=== PATIENT | female | born 1955 | race Caucasian/White ===

== ENCOUNTER 2022-12-02 02:59 | Observation (INO) | payer MEDICARE ==
--- NOTE | 2022-12-02 03:15 | ERPHSYRPT ---
- History of Present Illness Time Seen by Provider: 12/02/22 03:15 Source: patient Exam Limitations: no limitations Physician History: This is a 67-year-old white female patient of Dr. Kang Mishra and direct marketing representative Dr. Vann and presents with worsening shortness of breath over 1 week's time. The last couple days she woke up in the salesperson shoes hours not been able to breeze and then she took a nebulizer treatment. It was not helping. She thinks her nebulizer vials are because she has had them for over a couple of years this patient denies chest pain. She does have some wheezing present. She has been diagnosed with COPD and CHF. She was told she has had a myocardial infarction in the past. She is not on oxygen at home. Patient's room air oxygen saturations level on arrival to the emergency room is 94% Timing/Duration: week(s) (1) Activities at Onset: none Severity of Dyspnea-Max: mild (Moderate) Severity of Dyspnea-Current: mild Possible Cause: occasional episodes Associated Symptoms: anxiety, wheezing, No chest pain/discomfort, No calf pain, No dizziness, No heaviness, No heart racing, No painful breathing, No tightness Allergies/Adverse Reactions: ampicillin [Ampicillin] Allergy (Verified 12/02/22 03:23) Penicillins Allergy (Verified 12/02/22 03:23) Home Medications: Albuterol 2.5 mg/3 ml Neb [Proventil 2.5 mg/3 ml Neb] 2.5 mg IH TID 08/12/18 [History] Albuterol Sulfate [Albuterol Sulfate Hfa] 7 gm IH DAILY PRN PRN 08/12/18 [History] Aspirin EC 81 mg [Ecotrin 81 mg] 81 mg PO DAILY 08/12/18 [History] Ibuprofen 200 mg [Motrin 200 mg] 200 mg PO DAILY PRN PRN 08/12/18 [History] Travel Risk - International Travel Have you traveled outside of the country in past 3 weeks: No - Coronavirus Screening Are you exhibiting any of the following symptoms?: No Close contact with a COVID-19 positive Pt in past 14-21 Days: No - Review of Systems Constitutional: No Symptoms Eyes: No Symptoms Ears, Nose, & Throat: No Symptoms Respiratory: Dyspnea, Wheezing Cardiac: No Symptoms Abdominal/Gastrointestinal: No Symptoms Genitourinary Symptoms: No Symptoms Musculoskeletal: No Symptoms Skin: No Symptoms Neurological: No Symptoms Psychological: No Symptoms Endocrine: No Symptoms Hematologic/Lymphatic: No Symptoms Immunological/Allergic: No Symptoms All Other Systems: Reviewed and Negative - Past Medical History Pertinent Past Medical History: Yes Neurological History: No Pertinent History ENT History: No Pertinent History Cardiac History: Myocardial Infarction ([place]) Respiratory History: COPD Endocrine Medical History: No Pertinent History Musculoskeletal History: No Pertinent History GI Medical History: No Pertinent History History: No Pertinent History Psycho-Social History: No Pertinent History Female Reproductive Disorders: No Pertinent History - Past Surgical History Past Surgical History: Yes Neuro Surgical History: No Pertinent History Cardiac: Other Respiratory: No Pertinent History Gastrointestinal: Appendectomy Genitourinary: No Pertinent History Musculoskeletal: No Pertinent History Female Surgical History: Tubal Ligation - Social History Smoking Status: Never smoker Exposure to second hand smoke: No Drug Use: none - Nursing Vital Signs Nursing Vital Signs: Initial Vital Signs Temperature 97.4 F 12/02/22 03:02 Pulse Rate 86 12/02/22 03:02 Respiratory Rate 24 12/02/22 03:02 Blood Pressure 142/79 12/02/22 03:02 O2 Sat by Pulse Oximetry 94 L 12/02/22 03:02 Pain Scale Pain Intensity 0 - Physical Exam General Appearance: no apparent distress, alert, anxiety Eye Exam: PERRL/EOMI, eyes nml inspection Ears, Nose, Throat Exam: hearing grossly normal, normal ENT inspection, normal pharynx Neck Exam: normal inspection, non-tender, supple, full range of motion Respiratory Exam: wheezing (Bilateral mild diffuse expiratory), No chest tenderness, No respiratory distress Cardiovascular/Chest Exam: normal heart sounds, regular rate/rhythm, normal peripheral pulses Abdominal/Gastrointestinal Exam: soft, normal bowel sounds, No tenderness Rectal Exam: not done Extremity Exam: non-tender, normal range of motion, normal inspection Neurologic Exam: alert, oriented x 3, cooperative, structural fitter II-XII nml as tested, normal mood/affect, nml cerebellar function, nml station & gait, sensation nml Skin Exam: normal color, warm, dry Lymphatic Exam: No adenopathy SpO2 Interpretation: normal O2 Delivery: Room Air - Course Nursing assessment & vital signs reviewed: Yes EKG Interpreted by Me: RATE (86), Sinus Rhythm, NORMAL AXIS, NORMAL INTERVALS, NORMAL QRS, NORMAL ST-T, Other (No acute ischemia on today's twelve-lead EKG) Ordered Tests: Active Orders 24 hr Category Date Time Status Hash S[place] STAT Care 12/02/22 03:38 Active EKG-ER Only STAT Care 12/02/22 03:37 Active IV Insertion STAT Care 12/02/22 03:37 Active Pulse Oximetry (ED) STAT Care 12/02/22 03:37 Active CHEST 1 VIEW (PORTABLE) Stat Exams 12/02/22 03:37 Taken CBC W DIFF Stat Lab 12/02/22 03:45 Completed CMP Stat Lab 12/02/22 03:45 Completed NT PRO BNPII Stat Lab 12/02/22 03:45 Completed TROPONIN Q4H Lab 12/02/22 03:45 Completed TROPONIN Q4H Lab 12/02/22 07:45 Ordered TROPONIN Q4H Lab 12/02/22 11:45 Ordered Respiratory Therapy Assessment DAILY RT 12/02/22 03:31 Completed Medication Summary Discontinued Medications Generic Name Dose Route Start Last Admin Trade Name Freq PRN Reason Stop Dose Admin Albuterol/Ipratropium Confirm 12/02/22 03:28 Ipratropium/Albuterol Sulfate 3 Ml Ampul.Neb Administered 12/02/22 03:29 Dose 3 ml IH .STK-MED ONE Albuterol/Ipratropium 3 ml 12/02/22 03:30 12/02/22 03:31 Ipratropium/Albuterol Sulfate 3 Ml Ampul.Neb IH 12/02/22 03:31 3 ml STAT ONE Administration Lab/Rad Data: Laboratory Result Diagrams 12/02/22 03:45 12/02/22 03:45 Laboratory Results 12/02/22 12/02/22 12/02/22 Range/Units 03:45 03:45 03:45 WBC (4.0-10.5) x10^3/uL RBC (4.1-5.4) x10^6/uL Hgb (12.0-16.0) g/dL Hct (35-47) % MCV (78-100) fL MCH (26-32) pg MCHC (32-36) g/dL RDW (11.5-14.0) % Plt Count (150-450) x10^3/uL MPV (7.5-11.0) fL Gran % (36.0-66.0) % Immature Gran % (Auto) (0.00-0.4) % Nucleat RBC Rel Count (0.00-0.1) % Eos # (Auto) (0-0.5) x10^3/uL Immature Gran # (Auto) (0.00-0.03) x10^3u/L Absolute Lymphs (auto) (1.0-4.6) x10^3/uL Absolute Monos (auto) (0.0-1.3) x10^3/uL Absolute Nucleated RBC (0.00-0.01) x10^3u/L Lymphocytes % (24.0-44.0) % Monocytes % (0.0-12.0) % Eosinophils % (0.00-5.0) % Basophils % (0.0-0.4) % Absolute Granulocytes (1.4-6.9) x10^3/uL Basophils # (0-0.4) x10^3/uL Sodium 141 (137-145) mmol/L Potassium 3.7 (3.5-5.1) mmol/L Chloride 103 (98-107) mmol/L Carbon Dioxide 27 (22-30) mmol/L Anion Gap 14.1 (5-15) MEQ/L BUN 19 H (7-17) mg/dL Creatinine 0.76 (0.52-1.04) mg/dL Estimated GFR > 60.0 ML/MIN Glucose 128 H (74-106) mg/dL Calcium 8.8 (8.4-10.2) mg/dL Total Bilirubin 0.50 (0.2-1.3) mg/dL AST 32 (14-36) U/L ALT 27 (0-35) U/L Alkaline Phosphatase 108 (38-126) U/L Troponin I < 0.012 (0.000-0.034) ng/mL NT-Pro-B Natriuret Pep 298 (<300) pg/mL Serum Total Protein 7.8 (6.3-8.2) g/dL Albumin 4.4 (3.5-5.0) g/dL 12/02/22 Range/Units 03:45 WBC 9.3 (4.0-10.5) x10^3/uL RBC 4.49 (4.1-5.4) x10^6/uL Hgb 13.3 (12.0-16.0) g/dL Hct 41.9 (35-47) % MCV 93.3 (78-100) fL MCH 29.6 (26-32) pg MCHC 31.7 L (32-36) g/dL RDW 15.5 H (11.5-14.0) % Plt Count 232 (150-450) x10^3/uL MPV 11.1 H (7.5-11.0) fL Gran % 58.1 (36.0-66.0) % Immature Gran % (Auto) 0.2 (0.00-0.4) % Nucleat RBC Rel Count 0.0 (0.00-0.1) % Eos # (Auto) 0.52 H (0-0.5) x10^3/uL Immature Gran # (Auto) 0.02 (0.00-0.03) x10^3u/L Absolute Lymphs (auto) 2.61 (1.0-4.6) x10^3/uL Absolute Monos (auto) 0.71 (0.0-1.3) x10^3/uL Absolute Nucleated RBC 0.00 (0.00-0.01) x10^3u/L Lymphocytes % 28.1 (24.0-44.0) % Monocytes % 7.6 (0.0-12.0) % Eosinophils % 5.6 H (0.00-5.0) % Basophils % 0.4 (0.0-0.4) % Absolute Granulocytes 5.39 (1.4-6.9) x10^3/uL Basophils # 0.04 (0-0.4) x10^3/uL Sodium (137-145) mmol/L Potassium (3.5-5.1) mmol/L Chloride (98-107) mmol/L Carbon Dioxide (22-30) mmol/L Anion Gap (5-15) MEQ/L BUN (7-17) mg/dL Creatinine (0.52-1.04) mg/dL Estimated GFR ML/MIN Glucose (74-106) mg/dL Calcium (8.4-10.2) mg/dL Total Bilirubin (0.2-1.3) mg/dL AST (14-36) U/L ALT (0-35) U/L Alkaline Phosphatase (38-126) U/L Troponin I (0.000-0.034) ng/mL NT-Pro-B Natriuret Pep (<300) pg/mL Serum Total Protein (6.3-8.2) g/dL Albumin (3.5-5.0) g/dL - Progress Progress: improved, re-examined Air Movement: fair Progress Note: 12/02/22 04:12 Chest x-ray was interpreted by me. There is bibasilar scarring versus atelectasis present. No obvious infiltrate on my interpretation. 12/02/22 04:22 This patient's medical issue is 1 of moderate complexity. The level of complexity in the work-up performed is based on the review of the patient's past medical history, review of the patient's medication list, review of the patient's drug allergy list, history of present illness and findings on physical examination. Work-up performed includes a chest x-ray, twelve-lead EKG, BNP, troponin level, CBC, CMP. I reviewed the above results. I interpreted them. Patient appears to have COPD exacerbation we will provide her with RT evaluation and treatment. She received a breathing treatment via nebulizer by RT, she received steroid of Solu-Medrol infused intravenously. She will be reassessed by RT before discharge to home. I will send a prescription for prednisone and albuterol solution for her nebulizer to her pharmacy remotely. Blood Culture(s) Obtained: Yes Counseled pt/family regarding: lab results, diagnosis, need for follow-up, rad results Medical Desision Making - Diagnostic Testing Diagnostic test were ordered, analyzed, and reviewed by me: Yes Radiological Interpretation: Interpreted by me - Risk of complications The pt has a mod risk of morbidity or mortality based on: Need for prescription drug management - Departure Departure Disposition: Home Clinical Impression: COPD exacerbation Condition: Stable Critical Care Time: No Referrals: ANA LILIA JOSEPH [Primary Care Provider] - Follow up/PCP as directed Instructions: Chronic Obstructive Pulmonary Disease Additional Instructions: Take your medication as prescribed. Follow-up with your prescribing physician as well as your direct marketing representative later today to make arranges for follow-up appointment within 3 to 5 days for reevaluation management. Make sure you use your albuterol nebulizer solution/machine every 4 hours scheduled while awake for the next 48 to 72 hours. Prescriptions: Prednisone 10 mg [Deltasone 10 mg] 10 mg PO TID #12 tablet Albuterol 2.5 mg/3 ml Neb [Proventil 2.5 mg/3 ml Neb] 2.5 mg IH Q6H #25 units
[2022-12-02] MEDS ORDERED: DUONEB 0.5-3 MG/3 ml Neb IH ONE ×2 (03:28→03:30)
[2022-12-02 03:57] LABS: ALBUMIN 4.4 g/dL (3.5-5.0); ALKALINE PHOSPHATASE 108 U/L (38-126); ANION GAP 14.1 MEQ/L (5-15); BLOOD UREA NITROGEN 19 mg/dL (7-17); CHLORIDE 103 mmol/L (98-107); Calcium 8.8 mg/dL (8.4-10.2); Carbon Dioxide 27 mmol/L (22-30); Creatinine 1 0.76 mg/dL (0.52-1.04); EST GLOMERULAR FILTRATION RATE > 60.0 ML/MIN; Glucose 128 mg/dL (74-106); Potassium 3.7 mmol/L (3.5-5.1); SGOT/AST 32 U/L (14-36); SGPT/ALT 27 U/L (0-35); SODIUM 141 mmol/L (137-145); Total Protein 7.8 g/dL (6.3-8.2)
[2022-12-02 04:09] LABS: Absolute Neutrophil Ct (ANC) 5.39 x10^3/uL (1.4-6.9); BASOPHIL % 0.4 % (0.0-0.4); Basophil (Absolute #) 0.04 x10^3/uL (0-0.4); Eosinophil % 5.6 % (0.00-5.0); Eosinophil (Absolute #) 0.52 x10^3/uL (0-0.5); Hematocrit 41.9 % (35-47); Hemoglobin 13.3 g/dL (12.0-16.0); IMMATURE GRAN # 0.02 x10^3u/L (0.00-0.03); IMMATURE GRAN % 0.2 % (0.00-0.4); Lymphocyte (Absolute #) 2.61 x10^3/uL (1.0-4.6); Lymphocytes % 28.1 % (24.0-44.0); Mean Cell Volume 93.3 fL (78-100); Mean Corpuscular Hemoglobin 29.6 pg (26-32); Mean Corpuscular Hgb Concent. 31.7 g/dL (32-36); Mean Platelet Volume 11.1 fL (7.5-11.0); Monocyte (Absolute #) 0.71 x10^3/uL (0.0-1.3); Monocytes % 7.6 % (0.0-12.0); Neutrophil % 58.1 % (36.0-66.0); Platelet Count 232 x10^3/uL (150-450); Red Blood Count 4.49 x10^6/uL (4.1-5.4); Red Cell Distribution Width 15.5 % (11.5-14.0); White Blood Count 9.3 x10^3/uL (4.0-10.5)
[2022-12-02] MEDS ORDERED: solu-MEDROL 120 MG, Sterile H2O 10 ml 1 ML IV STA ×2 (04:27)
[2022-12-02] MEDS ORDERED: solu-MEDROL ONE ×2 (04:39→13:06)
[2022-12-02] MEDS ORDERED: Sterile H2O 10 ml IJ ONE (04:39)
[2022-12-02] MEDS ORDERED: Sodium Chloride 0.9% 1000 ML 1,000 ML IV SCH (08:00)
[2022-12-02] MEDS: LEVOFLOXACIN 750MG/150ML D5W 750 MG/150 ML BAG IV SCH (08:07)
[2022-12-02 08:34] LABS: INFLUENZA A NEGATIVE (NEGATIVE); INFLUENZA B NEGATIVE (NEGATIVE); RESPIRATORY SYNCTIAL VIRUS NEGATIVE (NEGATIVE); SARS-CoV-2 Xpert Express NEGATIVE (NEGATIVE)
--- NOTE | 2022-12-02 08:38 | XRAY ---
Indication: Short of breath. Comparison: January 23, 2017 Portable chest remains inflated and clear. Heart not enlarged again with cardiac valve replacement surgery. Bony thorax intact again with osteopenia and mild degenerative changes. Impression: Continued nonacute chest with chronic features.
[2022-12-02] MEDS: DUONEB 0.5-3 MG/3 ml Neb IH SCH ×4 (11:27→23:51)
[2022-12-02] MEDS ORDERED: solu-MEDROL 60 MG, Sterile H2O 10 ml 2 ML IV SCH ×2 (12:00)
--- NOTE | 2022-12-02 13:10 | PCM.HP ---
History of Present Illness - Chief Complaint Chief Complaint: COPD History of Present Illness: is a 67 year old female patient of Dr Kapadia who presented to the ER with a week and a half history of cough, productive and wheezing/shortness of breath. no known fever, states she has had insurance problems and been without some of her meds for the last month and a half, she is unable to elaborate on which meds, she has borrowed an inhaler from a neighbor. - Review of Systems Constitutional: No Symptoms Respiratory: Cough, Short Of Breath, Wheezing Cardiac: No Chest Pain, No Edema, No Syncope Abdominal/Gastrointestinal: No Abdominal Pain, No Nausea, No Vomiting, No Diarrhea Genitourinary Symptoms: No Dysuria All Other Systems: Reviewed and Negative Medications & Allergies Home Medications: Home Medication List Albuterol 2.5 mg/3 ml Neb [Proventil 2.5 mg/3 ml Neb] 2.5 mg IH Q6H 08/12/18 [History Confirmed 12/02/22] Ibuprofen 200 mg [Motrin 200 mg] 800 mg PO BIDPRN PRN 08/12/18 [History Confirmed 12/02/22] Atorvastatin Calcium 40 mg PO HS 12/02/22 [History Confirmed 12/02/22] Carvedilol [Coreg ] 6.25 mg PO BID 12/02/22 [History Confirmed 12/02/22] Famotidine [Pepcid] 20 mg PO DAILY 12/02/22 [History Confirmed 12/02/22] Furosemide [Lasix] 20 mg PO DAILY 12/02/22 [History Confirmed 12/02/22] Losartan Potassium 50 mg PO DAILY 12/02/22 [History Confirmed 12/02/22] Montelukast Sodium 10 mg [Singulair 10 MG] 10 mg PO DAILY 12/02/22 [History Confirmed 12/02/22] Nitroglycerin 0.4 mg SL Q5MIN PRN MR X 3 PRN 12/02/22 [History Confirmed 12/02/22] PARoxetine HCL [Paroxetine HCl] 40 mg PO DAILY 12/02/22 [History Confirmed 12/02/22] Prednisone 10 mg [Deltasone 10 mg] 10 mg PO DAILY 12/02/22 [History Confirmed 12/02/22] Allergies/Adverse Reactions: Allergies Allergy/AdvReac Type Severity Reaction Status Date / Time ampicillin [Ampicillin] Allergy Verified 12/02/22 03:23 Penicillins Allergy Verified 12/02/22 03:23 - Past Medical History Past Medical History: Yes Neurological History: No Pertinent History ENT History: No Pertinent History Cardiac History: Myocardial Infarction ([place]) Respiratory History: Asthma, COPD Endocrine Medical History: No Pertinent History Musculoskelatal History: No Pertinent History GI Medical History: No Pertinent History History: No Pertinent History Pyscho-Social History: No Pertinent History, Depression Reproductive Disorders: No Pertinent History - Female History Hx Last Menstrual Period: post menopausal Are you now?: No - Past Surgical History Past Surgical History: Yes Neuro Surgical History: No Pertinent History Cardiac History: Other Respiratory Surgery: No Pertinent History GI Surgical History: Appendectomy Genitourinary Surgical Hx: No Pertinent History Musculskeletal Surgical Hx: No Pertinent History Female Surgical History: Tubal Ligation Other Surgical History: open heart- remove growth from heart- 2014 - Social History Smoking Status: Current every day smoker How long have you smoked: 40 y Exposure to second hand smoke: No Alcohol: Occasionally Drug Use: none, marijuana - Physical Exam Vital Signs: Vital Signs - 24 hr Temp Pulse Resp BP Pulse Ox 12/02/22 12:00 97.7 F 93 H 17 135/70 90 L 12/02/22 11:29 90 20 95 12/02/22 10:38 97.1 F 96 H 24 148/89 94 L 12/02/22 09:58 97.1 F 96 H 24 148/89 94 L 12/02/22 07:54 97.4 F 102 H 22 115/88 96 12/02/22 06:00 80 20 133/78 95 12/02/22 04:34 96 12/02/22 04:01 80 20 135/82 96 12/02/22 03:31 84 24 98 12/02/22 03:02 97.4 F 86 24 142/79 94 L General Appearance: no apparent distress Neurologic Exam: alert, oriented x 3 Respiratory Exam: diminished breath sounds, wheezing Cardiovascular Exam: regular rate/rhythm, normal heart sounds, normal peripheral pulses Gastrointestinal/Abdomen Exam: soft, normal bowel sounds, No tenderness, No mass Extremity Exam: normal inspection, normal range of motion, pelvis stable Skin Exam: normal color, warm, dry, No rash Results - Labs Lab/Micro Results: Lab Results-Last 24 Hours 12/02/22 12/02/22 12/02/22 Range/Units 03:45 03:45 03:45 WBC 9.3 (4.0-10.5) x10^3/uL RBC 4.49 (4.1-5.4) x10^6/uL Hgb 13.3 (12.0-16.0) g/dL Hct 41.9 (35-47) % MCV 93.3 (78-100) fL MCH 29.6 (26-32) pg MCHC 31.7 L (32-36) g/dL RDW 15.5 H (11.5-14.0) % Plt Count 232 (150-450) x10^3/uL MPV 11.1 H (7.5-11.0) fL Gran % 58.1 (36.0-66.0) % Immature Gran % (Auto) 0.2 (0.00-0.4) % Nucleat RBC Rel Count 0.0 (0.00-0.1) % Eos # (Auto) 0.52 H (0-0.5) x10^3/uL Immature Gran # (Auto) 0.02 (0.00-0.03) x10^3u/L Absolute Lymphs (auto) 2.61 (1.0-4.6) x10^3/uL Absolute Monos (auto) 0.71 (0.0-1.3) x10^3/uL Absolute Nucleated RBC 0.00 (0.00-0.01) x10^3u/L Lymphocytes % 28.1 (24.0-44.0) % Monocytes % 7.6 (0.0-12.0) % Eosinophils % 5.6 H (0.00-5.0) % Basophils % 0.4 (0.0-0.4) % Absolute Granulocytes 5.39 (1.4-6.9) x10^3/uL Basophils # 0.04 (0-0.4) x10^3/uL D-Dimer (0.0-0.50) mg/L Sodium 141 (137-145) mmol/L Potassium 3.7 (3.5-5.1) mmol/L Chloride 103 (98-107) mmol/L Carbon Dioxide 27 (22-30) mmol/L Anion Gap 14.1 (5-15) MEQ/L BUN 19 H (7-17) mg/dL Creatinine 0.76 (0.52-1.04) mg/dL Estimated GFR > 60.0 ML/MIN Glucose 128 H (74-106) mg/dL Calcium 8.8 (8.4-10.2) mg/dL Total Bilirubin 0.50 (0.2-1.3) mg/dL AST 32 (14-36) U/L ALT 27 (0-35) U/L Alkaline Phosphatase 108 (38-126) U/L Troponin I < 0.012 (0.000-0.034) ng/mL NT-Pro-B Natriuret Pep (<300) pg/mL Serum Total Protein 7.8 (6.3-8.2) g/dL Albumin 4.4 (3.5-5.0) g/dL Influenza Type A Ag (NEGATIVE) Influenza Type B Ag (NEGATIVE) RSV (PCR) (NEGATIVE) SARS-CoV-2 (PCR) (NEGATIVE) 12/02/22 12/02/22 12/02/22 Range/Units 03:45 06:00 07:37 WBC (4.0-10.5) x10^3/uL RBC (4.1-5.4) x10^6/uL Hgb (12.0-16.0) g/dL Hct (35-47) % MCV (78-100) fL MCH (26-32) pg MCHC (32-36) g/dL RDW (11.5-14.0) % Plt Count (150-450) x10^3/uL MPV (7.5-11.0) fL Gran % (36.0-66.0) % Immature Gran % (Auto) (0.00-0.4) % Nucleat RBC Rel Count (0.00-0.1) % Eos # (Auto) (0-0.5) x10^3/uL Immature Gran # (Auto) (0.00-0.03) x10^3u/L Absolute Lymphs (auto) (1.0-4.6) x10^3/uL Absolute Monos (auto) (0.0-1.3) x10^3/uL Absolute Nucleated RBC (0.00-0.01) x10^3u/L Lymphocytes % (24.0-44.0) % Monocytes % (0.0-12.0) % Eosinophils % (0.00-5.0) % Basophils % (0.0-0.4) % Absolute Granulocytes (1.4-6.9) x10^3/uL Basophils # (0-0.4) x10^3/uL D-Dimer 0.47 (0.0-0.50) mg/L Sodium (137-145) mmol/L Potassium (3.5-5.1) mmol/L Chloride (98-107) mmol/L Carbon Dioxide (22-30) mmol/L Anion Gap (5-15) MEQ/L BUN (7-17) mg/dL Creatinine (0.52-1.04) mg/dL Estimated GFR ML/MIN Glucose (74-106) mg/dL Calcium (8.4-10.2) mg/dL Total Bilirubin (0.2-1.3) mg/dL AST (14-36) U/L ALT (0-35) U/L Alkaline Phosphatase (38-126) U/L Troponin I < 0.012 (0.000-0.034) ng/mL NT-Pro-B Natriuret Pep 298 (<300) pg/mL Serum Total Protein (6.3-8.2) g/dL Albumin (3.5-5.0) g/dL Influenza Type A Ag (NEGATIVE) Influenza Type B Ag (NEGATIVE) RSV (PCR) (NEGATIVE) SARS-CoV-2 (PCR) (NEGATIVE) 12/02/22 12/02/22 Range/Units 07:57 11:46 WBC (4.0-10.5) x10^3/uL RBC (4.1-5.4) x10^6/uL Hgb (12.0-16.0) g/dL Hct (35-47) % MCV (78-100) fL MCH (26-32) pg MCHC (32-36) g/dL RDW (11.5-14.0) % Plt Count (150-450) x10^3/uL MPV (7.5-11.0) fL Gran % (36.0-66.0) % Immature Gran % (Auto) (0.00-0.4) % Nucleat RBC Rel Count (0.00-0.1) % Eos # (Auto) (0-0.5) x10^3/uL Immature Gran # (Auto) (0.00-0.03) x10^3u/L Absolute Lymphs (auto) (1.0-4.6) x10^3/uL Absolute Monos (auto) (0.0-1.3) x10^3/uL Absolute Nucleated RBC (0.00-0.01) x10^3u/L Lymphocytes % (24.0-44.0) % Monocytes % (0.0-12.0) % Eosinophils % (0.00-5.0) % Basophils % (0.0-0.4) % Absolute Granulocytes (1.4-6.9) x10^3/uL Basophils # (0-0.4) x10^3/uL D-Dimer (0.0-0.50) mg/L Sodium (137-145) mmol/L Potassium (3.5-5.1) mmol/L Chloride (98-107) mmol/L Carbon Dioxide (22-30) mmol/L Anion Gap (5-15) MEQ/L BUN (7-17) mg/dL Creatinine (0.52-1.04) mg/dL Estimated GFR ML/MIN Glucose (74-106) mg/dL Calcium (8.4-10.2) mg/dL Total Bilirubin (0.2-1.3) mg/dL AST (14-36) U/L ALT (0-35) U/L Alkaline Phosphatase (38-126) U/L Troponin I < 0.012 (0.000-0.034) ng/mL NT-Pro-B Natriuret Pep (<300) pg/mL Serum Total Protein (6.3-8.2) g/dL Albumin (3.5-5.0) g/dL Influenza Type A Ag NEGATIVE (NEGATIVE) Influenza Type B Ag NEGATIVE (NEGATIVE) RSV (PCR) NEGATIVE (NEGATIVE) SARS-CoV-2 (PCR) NEGATIVE (NEGATIVE) - Radiology Impressions Radiology Exams & Impressions: Radiology Procedures Category Date Time Status CHEST 1 VIEW (PORTABLE) Stat Exams 12/02/22 03:37 Completed - Other Procedures and Tests Respiratory Therapy 12/02/22 07:57 Oxygen Nasal Cannula 2 lpm 12/02/22 11:29 Respiratory Therapy Assessment DAILY Assessment/Plan (1) COPD exacerbation Current Visit: Yes Status: Acute Assessment & Plan: continue IV solu medrol, nebs and steroids. encouraged smoking cessation Code(s): J44.1 - CHRONIC OBSTRUCTIVE PULMONARY DISEASE W (ACUTE) EXACERBATION (2) Coronary artery disease Current Visit: Yes Status: Acute Assessment & Plan: resume home meds including statin and beta luke, follows with Dr Vann Code(s): I25.10 - ATHSCL HEART DISEASE OF [place] CORONARY ARTERY W/O ANG PCTRS
[2022-12-02] MEDS: solu-MEDROL 60 MG, Sterile H2O 10 ml 2 ML IV SCH ×6 (13:15→23:42)
[2022-12-02] MEDS: Cyclobenzaprine 10 MG PO PRN ×2 (16:55→21:09)
[2022-12-02] MEDS: Coreg PO SCH (21:08)
[2022-12-02] MEDS ORDERED: ZOCOR 20MG PO SCH (22:00)
[2022-12-02] MEDS ORDERED: LIPITOR 40MG PO SCH (22:00)
[2022-12-03] MEDS: DUONEB 0.5-3 MG/3 ml Neb IH SCH ×4 (03:00→14:21)
[2022-12-03] MEDS ORDERED: solu-MEDROL ONE ×2 (04:39→04:40)
[2022-12-03] MEDS ORDERED: Sterile H2O 10 ml IJ ONE (04:50)
[2022-12-03 05:36] LABS: ANION GAP 12.7 MEQ/L (5-15); BLOOD UREA NITROGEN 20 mg/dL (7-17); CHLORIDE 108 mmol/L (98-107); Calcium 8.8 mg/dL (8.4-10.2); Carbon Dioxide 23 mmol/L (22-30); EST GLOMERULAR FILTRATION RATE > 60.0 ML/MIN; Glucose 160 mg/dL (74-106); MAGNESIUM 2.1 mg/dL (1.6-2.3); Potassium 3.8 mmol/L (3.5-5.1); SODIUM 140 mmol/L (137-145)
[2022-12-03] MEDS: solu-MEDROL 60 MG, Sterile H2O 10 ml 2 ML IV SCH ×2 (05:45)
[2022-12-03 07:32] LABS: Hematocrit 36.9 % (35-47); Hemoglobin 11.6 g/dL (12.0-16.0); Mean Cell Volume 94.9 fL (78-100); Mean Corpuscular Hemoglobin 29.8 pg (26-32); Mean Corpuscular Hgb Concent. 31.4 g/dL (32-36); Mean Platelet Volume 11.3 fL (7.5-11.0); Platelet Count 226 x10^3/uL (150-450); Red Blood Count 3.89 x10^6/uL (4.1-5.4); Red Cell Distribution Width 15.1 % (11.5-14.0); White Blood Count 10.6 x10^3/uL (4.0-10.5)
[2022-12-03 09:47] VITALS: O2SAT 95
[2022-12-03] MEDS: LEVOFLOXACIN 750MG/150ML D5W 750 MG/150 ML BAG IV SCH (09:54)
[2022-12-03] MEDS: Coreg PO SCH (09:55)
[2022-12-03] MEDS ORDERED: LASIX 20 MG PO SCH (10:00)
[2022-12-03] MEDS ORDERED: Cozaar 50 MG PO SCH (10:00)
[2022-12-03] MEDS ORDERED: Mucinex 600MG ER Tabs PO ONE (10:00)
[2022-12-03] MEDS ORDERED: Klor Con PO SCH ×2 (10:00)
[2022-12-03] MEDS ORDERED: DELTASONE 20 MG PO ONE (10:00)
[2022-12-03] MEDS ORDERED: PAROXETINE HCL 40 MG PO SCH (10:00)
[2022-12-03] MEDS ORDERED: Singulair 10 MG PO SCH (10:00)
[2022-12-03] MEDS ORDERED: Paxil 20 MG PO SCH (10:00)
[2022-12-03] MEDS ORDERED: Pepcid 20 MG PO SCH (10:00)
[2022-12-03 15:06] VITALS: BP 138/72; PULSE 104
== END 2022-12-03 15:15 | disposition home or self-care (01) ==
LOC: ED 02:59 → MED SURG 09:41
PROVIDERS: ADMIT Family Medicine; ATTEND Family Medicine
DX: J44.1 Chronic obstructive pulmonary disease with (acute) exacerbation (principal); I25.10 Atherosclerotic heart disease of native coronary artery without angina pectoris; Z79.899 Other long term (current) drug therapy; Z20.828 Contact with and (suspected) exposure to other viral communicable diseases; Z72.0 Tobacco use
CPT/HCPCS: 0241U; 36000; 36415; 71045; 80048; 80053; 82947; 83735; 83880; 84484; 85025; 85027; 85379; 93005; 93041; 94640; 94760; 96374; 99285; 96365; G0378; J1956; J2920; A9270-GY

== ENCOUNTER 2023-09-01 11:06 | Emergency (ER) | payer MEDICARE ==
--- NOTE | 2023-09-01 11:09 | ERPHSYRPT ---
- History of Present Illness Time Seen by Provider: 09/01/23 11:08 Source: patient, family Exam Limitations: no limitations Physician History: This is a morbidly obese 68-year-old white female patient of Dr. Franklin who has a history of COPD, hypertension, hyperlipidemia, CHF and depression and in the last 2 to 3 days she has been having worsening shortness of breath symptoms. Patient was brought into the emergency department by the paramedics. They did place her on oxygen, 2 L via nasal cannula and patient arrives to the emergency department with the [address] and a oxygen saturation level of 94 to 95%. Patient has noticed some wheezing as well. She denies chest pain. Patient did receive a DuoNeb treatment and 125 mg of Solu-Medrol. Patient has a history of frequent COPD exacerbation episodes. Timing/Duration: today, worse Severity of Dyspnea-Max: moderate Severity of Dyspnea-Current: mild (To moderate) Possible Cause: frequent episodes Modifying Factors: Improves With: activity, albuterol nebulizer, rest (Proves improved) Associated Symptoms: cough, wheezing, No chest pain/discomfort Allergies/Adverse Reactions: ampicillin [Ampicillin] Allergy (Verified 09/01/23 11:18) Penicillins Allergy (Verified 09/01/23 11:18) Home Medications: Ibuprofen 200 mg [Motrin 200 mg] 800 mg PO BIDPRN PRN 08/12/18 [History] Atorvastatin Calcium 40 mg PO HS 12/02/22 [History] Carvedilol [Coreg ] 6.25 mg PO BID 12/02/22 [History] Famotidine [Pepcid] 20 mg PO DAILY 12/02/22 [History] Furosemide [Lasix] 20 mg PO DAILY 12/02/22 [History] Losartan Potassium 50 mg PO DAILY 12/02/22 [History] Montelukast Sodium 10 mg [Singulair 10 MG] 10 mg PO DAILY 12/02/22 [History] Nitroglycerin 0.4 mg SL Q5MIN PRN MR X 3 PRN 12/02/22 [History] PARoxetine HCL [Paroxetine HCl] 40 mg PO DAILY 12/02/22 [History] Hx Tetanus, Diphtheria Vaccination/Date Given: Yes Hx Influenza Vaccination/Date Given: No Hx Pneumococcal Vaccination/Date Given: No Travel Risk - International Travel Have you traveled outside of the country in past 3 weeks: No - Coronavirus Screening Are you exhibiting any of the following symptoms?: Yes Symptoms: Shortness of Breath Close contact with a COVID-19 positive Pt in past 14-21 Days: No - Vaccine Status Have you recieved a Covid-19 vaccination: Yes Program Dir: Moderna - Vaccination Dates Date of 2cond Vaccination (if applicable): 2020 - Review of Systems Constitutional: No Symptoms Eyes: No Symptoms Ears, Nose, & Throat: No Symptoms, Painful Swallowing Respiratory: Cough, Wheezing Cardiac: No Symptoms Abdominal/Gastrointestinal: No Symptoms Genitourinary Symptoms: No Symptoms Musculoskeletal: No Symptoms Skin: No Symptoms Neurological: No Symptoms Psychological: No Symptoms Endocrine: No Symptoms Hematologic/Lymphatic: No Symptoms Immunological/Allergic: No Symptoms All Other Systems: Reviewed and Negative - Past Medical History Pertinent Past Medical History: Yes Neurological History: No Pertinent History ENT History: No Pertinent History Cardiac History: Myocardial Infarction (PR) Respiratory History: Asthma, COPD Endocrine Medical History: No Pertinent History Musculoskeletal History: No Pertinent History GI Medical History: No Pertinent History History: No Pertinent History Psycho-Social History: No Pertinent History, Depression Female Reproductive Disorders: No Pertinent History - Past Surgical History Past Surgical History: Yes Neuro Surgical History: No Pertinent History Cardiac: Other Respiratory: No Pertinent History Gastrointestinal: Appendectomy Genitourinary: No Pertinent History Musculoskeletal: No Pertinent History Female Surgical History: Tubal Ligation Other Surgical History: open heart- remove growth from heart- 2014 - Social History Smoking Status: Current every day smoker How long have you smoked: 40 y Exposure to second hand smoke: No Drug Use: none, marijuana Patient Lives Alone: Yes - Nursing Vital Signs Nursing Vital Signs: Initial Vital Signs Temperature 97.9 F 09/01/23 11:19 Pulse Rate 108 H 09/01/23 11:19 Respiratory Rate 20 09/01/23 11:19 Blood Pressure 124/80 09/01/23 11:19 O2 Sat by Pulse Oximetry 93 L 09/01/23 11:19 Pain Scale Pain Intensity 0 - Physical Exam General Appearance: no apparent distress, alert, anxiety, obese Eye Exam: PERRL/EOMI, eyes nml inspection Ears, Nose, Throat Exam: hearing grossly normal, normal ENT inspection, normal pharynx Neck Exam: normal inspection, non-tender, supple, full range of motion Respiratory Exam: airway intact, wheezing, No chest tenderness, No respiratory distress Cardiovascular/Chest Exam: tachycardia Abdominal/Gastrointestinal Exam: soft, normal bowel sounds, No tenderness Rectal Exam: not done Extremity Exam: non-tender, normal range of motion, normal inspection, normal capillary refill, no calf tenderness, no pedal edema, pelvis stable, No calf tenderness Neurologic Exam: alert, oriented x 3, cooperative, pattern lease inspector II-XII nml as tested, normal mood/affect, sensation nml Skin Exam: normal color, warm, dry Lymphatic Exam: No adenopathy SpO2 Interpretation: O2 applied O2 Delivery: Nasal Cannula - Course Nursing assessment & vital signs reviewed: Yes EKG Interpreted by Me: RATE (102), Sinus Tach, NORMAL AXIS, NORMAL INTERVALS, NORMAL QRS, NORMAL ST-T, Other (No acute ischemic changes on today's twelve-lead EKG.) Ordered Tests: Active Orders 24 hr Category Date Time Status Polymer Chemist STAT Care 09/01/23 11:36 Active EKG-ER Only STAT Care 09/01/23 11:36 Active IV Insertion STAT Care 09/01/23 11:36 Active Pulse Oximetry (ED) STAT Care 09/01/23 11:36 Active CHEST 1 VIEW (PORTABLE) Stat Exams 09/01/23 11:36 Completed CHEST WITH CONTRAST [CT] Stat Exams 09/01/23 12:52 Completed BLOOD CULTURE Stat Lab 09/01/23 12:10 Received CBC W DIFF Stat Lab 09/01/23 12:00 Completed CMP Stat Lab 09/01/23 12:00 Completed D-DIMER QUANTITATIVE Stat Lab 09/01/23 12:00 Completed Lactic Acid Stat Lab 09/01/23 11:36 Completed NT PRO BNPII Stat Lab 09/01/23 12:00 Completed TROPONIN Q4H Lab 09/01/23 12:00 Completed TROPONIN Q4H Lab 09/01/23 15:45 Ordered TROPONIN Q4H Lab 09/01/23 19:45 Ordered Medication Summary Generic Name Dose Route Start Last Admin Trade Name Freq PRN Reason Stop Dose Admin Sodium Chloride 500 mls @ 50 mls/hr 09/01/23 13:00 09/01/23 12:57 Sodium Chloride 0.9% 500 Ml IV 10/01/23 12:59 50 mls/hr .Q10H LORELEI Administration Discontinued Medications Generic Name Dose Route Start Last Admin Trade Name Freq PRN Reason Stop Dose Admin Diazepam Confirm 09/01/23 13:25 Diazepam 10 Mg/2 Ml Disp.Syringe Administered 09/01/23 13:26 Dose 10 mg .ROUTE .STK-MED ONE Diazepam 5 mg 09/01/23 13:35 09/01/23 13:40 Diazepam 10 Mg/2 Ml Disp.Syringe IV 09/01/23 13:36 5 mg STAT ONE Administration Lab/Rad Data: Laboratory Result Diagrams 09/01/23 12:00 09/01/23 12:00 Laboratory Results 09/01/23 09/01/23 09/01/23 Range/Units Unknown 12:00 12:00 WBC (4.0-10.5) x10^3/uL RBC (4.1-5.4) x10^6/uL Hgb (12.0-16.0) g/dL Hct (35-47) % MCV (78-100) fL MCH (26-32) pg MCHC (32-36) g/dL RDW (11.5-14.0) % Plt Count (150-450) x10^3/uL MPV (7.5-11.0) fL Gran % (36.0-66.0) % Immature Gran % (Auto) (0.00-0.4) % Nucleat RBC Rel Count (0.00-0.1) % Eos # (Auto) (0-0.5) x10^3/uL Immature Gran # (Auto) (0.00-0.03) x10^3u/L Absolute Lymphs (auto) (1.0-4.6) x10^3/uL Absolute Monos (auto) (0.0-1.3) x10^3/uL Absolute Nucleated RBC (0.00-0.01) x10^3u/L Lymphocytes % (24.0-44.0) % Monocytes % (0.0-12.0) % Eosinophils % (0.00-5.0) % Basophils % (0.0-0.4) % Absolute Granulocytes (1.4-6.9) x10^3/uL Basophils # (0-0.4) x10^3/uL D-Dimer 1.07 H* (0.0-0.50) mg/L Sodium (137-145) mmol/L Potassium (3.5-5.1) mmol/L Chloride (98-107) mmol/L Carbon Dioxide (22-30) mmol/L Anion Gap (5-15) MEQ/L BUN (7-17) mg/dL Creatinine (0.52-1.04) mg/dL Estimated GFR ML/MIN Glucose (74-106) mg/dL Lactic Acid (0.4-2.0) Calcium (8.4-10.2) mg/dL Total Bilirubin (0.2-1.3) mg/dL AST (14-36) U/L ALT (0-35) U/L Alkaline Phosphatase (38-126) U/L Troponin I < 0.012 (0.000-0.034) ng/mL NT-Pro-B Natriuret Pep 369 (<300) pg/mL Serum Total Protein (6.3-8.2) g/dL Albumin (3.5-5.0) g/dL Influenza Type A Ag NEGATIVE (NEGATIVE) Influenza Type B Ag NEGATIVE (NEGATIVE) RSV (PCR) NEGATIVE (NEGATIVE) SARS-CoV-2 (PCR) NEGATIVE (NEGATIVE) 09/01/23 09/01/23 09/01/23 Range/Units 12:00 12:00 11:36 WBC 11.2 H (4.0-10.5) x10^3/uL RBC 4.18 (4.1-5.4) x10^6/uL Hgb 11.9 L (12.0-16.0) g/dL Hct 38.4 (35-47) % MCV 91.9 (78-100) fL MCH 28.5 (26-32) pg MCHC 31.0 L (32-36) g/dL RDW 16.0 H (11.5-14.0) % Plt Count 218 (150-450) x10^3/uL MPV 10.2 (7.5-11.0) fL Gran % 82.1 H (36.0-66.0) % Immature Gran % (Auto) 0.3 (0.00-0.4) % Nucleat RBC Rel Count 0.0 (0.00-0.1) % Eos # (Auto) 0.20 (0-0.5) x10^3/uL Immature Gran # (Auto) 0.03 (0.00-0.03) x10^3u/L Absolute Lymphs (auto) 1.13 (1.0-4.6) x10^3/uL Absolute Monos (auto) 0.62 (0.0-1.3) x10^3/uL Absolute Nucleated RBC 0.00 (0.00-0.01) x10^3u/L Lymphocytes % 10.1 L (24.0-44.0) % Monocytes % 5.5 (0.0-12.0) % Eosinophils % 1.8 (0.00-5.0) % Basophils % 0.2 (0.0-0.4) % Absolute Granulocytes 9.21 H (1.4-6.9) x10^3/uL Basophils # 0.02 (0-0.4) x10^3/uL D-Dimer (0.0-0.50) mg/L Sodium 137 (137-145) mmol/L Potassium 3.4 L (3.5-5.1) mmol/L Chloride 105 (98-107) mmol/L Carbon Dioxide 27 (22-30) mmol/L Anion Gap 8.7 (5-15) MEQ/L BUN 13 (7-17) mg/dL Creatinine 0.65 (0.52-1.04) mg/dL Estimated GFR 97.0 ML/MIN Glucose 126 H (74-106) mg/dL Lactic Acid 0.9 (0.4-2.0) Calcium 9.1 (8.4-10.2) mg/dL Total Bilirubin 0.80 (0.2-1.3) mg/dL AST 21 (14-36) U/L ALT 17 (0-35) U/L Alkaline Phosphatase 156 H (38-126) U/L Troponin I (0.000-0.034) ng/mL NT-Pro-B Natriuret Pep (<300) pg/mL Serum Total Protein 7.5 (6.3-8.2) g/dL Albumin 4.1 (3.5-5.0) g/dL Influenza Type A Ag (NEGATIVE) Influenza Type B Ag (NEGATIVE) RSV (PCR) (NEGATIVE) SARS-CoV-2 (PCR) (NEGATIVE) - Progress Progress: improved, re-examined Air Movement: fair Progress Note: 09/01/23 11:53 This patient's medical issue is 1 of moderate complexity. The level of complexity in the workup performed is based on review of the patient's past medical history, review of the patient's medication list, review the patient's drug allergy list, history present illness and physical findings on examination. The workup in this patient includes placement of intravenous line, respiratory therapy evaluation, chest x-ray, CBC, CMP, BNP, D-dimer level, twelve-lead EKG, troponin level and viral swabs. 09/01/23 14:16 I did interpret the patient's laboratory data results. The patient did have an elevated D-dimer. This in association with her shortness of breath we performed a CT scan of the chest with contrast. The CT scan of the chest with contrast was interpreted by the radiologist and I reviewed the impression. The impre ssion says negative pulmonary embolus study. Chronic findings including pulmonary emphysema as well as hiatal hernia with partial intrathoracic stomach described by the radiologist as moderate. The chest x-ray was also interpreted by the radiologist and he interpreted this as new hazy right base interstitial alveolar opacities without consolidation or large effusion. I am going to treat this patient as though she has an upper respiratory infection. Her troponin level and BNP level are normal but she does have a slightly elevated white count at 11.2. Clinical impression in this patient is shortness of breath, leukocytosis, upper respiratory infection, COPD exacerbation Blood Culture(s) Obtained: Yes Counseled pt/family regarding: lab results, diagnosis, need for follow-up, rad results Medical Desision Making - Diagnostic Testing Diagnostic test were ordered, analyzed, and reviewed by me: Yes Radiological Interpretation: Reviewed by me, Teleradiologist Report - Risk of complications The pt has a mod risk of morbidity or mortality based on: Need for prescription drug management - Departure Departure Disposition: Home Clinical Impression: Shortness of breath, Leukocytosis, Respiratory infection, COPD exacerbation Condition: Stable Critical Care Time: No Referrals: SETH FRANKLIN DO [Primary Care Provider] - Follow up/PCP as directed Instructions: Chronic Obstructive Pulmonary Disease Additional Instructions: Avoid any exposure to any type of smoke. Take your antibiotics and steroids as prescribed. Call your primary care provider today, 09/01/2023 to make arrangements for further evaluation and follow-up appointment Prescriptions: Prednisone 10 mg [Deltasone 10 mg] 10 mg PO TID #12 tablet Azithromycin 250 mg [Zithromax 250 MG TABLET] 250 mg PO ZPACK #6 tablet
[2023-09-01 11:30] VITALS: TEMP 97.9
--- NOTE | 2023-09-01 12:07 | XRAY ---
Indication: Short of breath and wheezing. Comparison: December 02, 2022 Portable chest demonstrates new hazy right base interstitial alveolar opacities without consolidation/large effusion. Remaining lungs clear. Heart not enlarged again with cardiac valve replacement surgery. Bony thorax intact again with osteopenia and degenerative changes.
[2023-09-01 12:14] VITALS: BP 115/72; PULSE 105; RESP 22; O2SAT 92
[2023-09-01 12:18] LABS: Absolute Neutrophil Ct (ANC) 9.21 x10^3/uL (1.4-6.9); BASOPHIL % 0.2 % (0.0-0.4); Basophil (Absolute #) 0.02 x10^3/uL (0-0.4); Eosinophil % 1.8 % (0.00-5.0); Hematocrit 38.4 % (35-47); Hemoglobin 11.9 g/dL (12.0-16.0); IMMATURE GRAN # 0.03 x10^3u/L (0.00-0.03); IMMATURE GRAN % 0.3 % (0.00-0.4); Lymphocyte (Absolute #) 1.13 x10^3/uL (1.0-4.6); Lymphocytes % 10.1 % (24.0-44.0); Mean Cell Volume 91.9 fL (78-100); Mean Corpuscular Hemoglobin 28.5 pg (26-32); Mean Platelet Volume 10.2 fL (7.5-11.0); Monocyte (Absolute #) 0.62 x10^3/uL (0.0-1.3); Monocytes % 5.5 % (0.0-12.0); Neutrophil % 82.1 % (36.0-66.0); Platelet Count 218 x10^3/uL (150-450); Red Blood Count 4.18 x10^6/uL (4.1-5.4); White Blood Count 11.2 x10^3/uL (4.0-10.5)
[2023-09-01 12:41] LABS: ALBUMIN 4.1 g/dL (3.5-5.0); ANION GAP 8.7 MEQ/L (5-15); BILIRUBIN,TOTAL 0.8 mg/dL (0.2-1.3); Calcium 9.1 mg/dL (8.4-10.2); Creatinine 1 0.65 mg/dL (0.52-1.04); Potassium 3.4 mmol/L (3.5-5.1); Total Protein 7.5 g/dL (6.3-8.2)
[2023-09-01 12:50] LABS: NT PRO BNPII 369 pg/mL (<300); TROPONIN < 0.012 ng/mL (0.000-0.034)
[2023-09-01 12:54] LABS: INFLUENZA A NEGATIVE (NEGATIVE); INFLUENZA B NEGATIVE (NEGATIVE); RESPIRATORY SYNCTIAL VIRUS NEGATIVE (NEGATIVE); SARS-CoV-2 Xpert Express NEGATIVE (NEGATIVE)
[2023-09-01] MEDS ORDERED: Sodium Chloride 0.9% 500 ML 500 ML IV ONE (12:55)
[2023-09-01] MEDS: Sodium Chloride 0.9% 500 ML 500 ML IV SCH (12:57)
[2023-09-01] MEDS ORDERED: VALIUM 10 MG/2 ML SYRINGE ONE (13:25)
[2023-09-01] MEDS: VALIUM 10 MG/2 ML SYRINGE IV ONE (13:40)
--- NOTE | 2023-09-01 13:57 | XRAY ---
Indication: Short of breath. Elevated d-dimer. Multiple contiguous axial images obtained through the chest using 80 cc Isovue 370 contrast and PE protocol. Comparison: None Good opacification pulmonary arteries to include the lobar and segmental branches. No pulmonary embolus. Heart not enlarged with mitral valve replacement. Aorta mildly arteriosclerotic without aneurysm/dissection. No pathologic mediastinal/hilar lymphadenopathy. Moderate-sized hiatal hernia with partial intrathoracic stomach. Lungs demonstrates mild scattered bilateral mid to lower lung subsegmental atelectasis/scarring. Elsewhere moderate diffuse pulmonary emphysema and minimal bibasilar dependent atelectasis. No consolidation/effusion. Bony thorax intact with sternotomy wires. Limited upper abdomen demonstrates fatty liver. Impression: 1. Negative pulmonary embolus. 2. Chronic findings including pulmonary emphysema, atelectasis/scarring, hiatal hernia with partial intrathoracic stomach, arteriosclerotic disease, and fatty liver.
== END 2023-09-01 14:55 | disposition home or self-care (01) ==
LOC: ED 11:06
DX: J06.9 Acute upper respiratory infection, unspecified (principal); J44.1 Chronic obstructive pulmonary disease with (acute) exacerbation; R06.02 Shortness of breath; D72.829 Elevated white blood cell count, unspecified; I11.0 Hypertensive heart disease with heart failure; I50.9 Heart failure, unspecified; E78.5 Hyperlipidemia, unspecified; Z79.52 Long term (current) use of systemic steroids; Z79.899 Other long term (current) drug therapy; Z72.0 Tobacco use; Z20.828 Contact with and (suspected) exposure to other viral communicable diseases
CPT/HCPCS: 0241U; 36415; 71045; 71260; 80053; 83605; 83880; 84484; 85025; 85379; 87040; 93005; 93041; 96374; 99284; J3360

== ENCOUNTER 2024-06-29 07:30 | Observation (INO) | payer MEDICARE, OTHER ==
--- NOTE | 2024-06-29 07:38 | ERPHSYRPT ---
- History of Present Illness Time Seen by Provider: 06/29/24 07:40 Source: patient Exam Limitations: no limitations Physician History: 68-year-old female with history of COPD presents to our emergency department for evaluation of progressive shortness of breath that started for 5 days ago. Shortness of breath associated with a productive cough of yellow-brownish sputum . Upon arrival to our ED patient was hypoxic. Patient normally does not require home oxygen. However patient required oxygen upon arrival to our ED. No associated chest pain or shortness of breath. No nausea vomiting or diaphoresis. Shortness of breath worse with exertion. Patient is a smoker however states she is currently trying to quit. Patient has not smoked in approximately 1 week. Patient otherwise feels well. No nausea no vomiting no diaphoresis. Patient reports that today symptoms are typical of her usual COPD exacerbations. Patient voices no other complaints or concerns at this time. Portions of this note were created with voice recognition technology. There may be grammatical, spelling, punctuation or sound alike errors Timing/Duration: day(s) (5 days ago) Activities at Onset: none Severity of Dyspnea-Max: moderate Severity of Dyspnea-Current: mild Possible Cause: occasional episodes Modifying Factors: Improves With: activity Associated Symptoms: cough (Productive cough of yellow-brownish sputum) Allergies/Adverse Reactions: ampicillin [Ampicillin] Allergy (Verified 06/29/24 07:35) Penicillins Allergy (Verified 06/29/24 07:35) vitafusion D Allergy (Uncoded 06/29/24 07:35) Home Medications: Ibuprofen 200 mg [Motrin 200 mg] 800 mg PO BIDPRN PRN 08/12/18 [History] Atorvastatin Calcium 40 mg PO HS 12/02/22 [History] Carvedilol [Coreg ] 6.25 mg PO BID 12/02/22 [History] Famotidine [Pepcid] 20 mg PO DAILY 12/02/22 [History] Furosemide [Lasix] 20 mg PO DAILY 12/02/22 [History] Losartan Potassium 50 mg PO DAILY 12/02/22 [History] Montelukast Sodium 10 mg [Singulair 10 MG] 10 mg PO DAILY 12/02/22 [History] Nitroglycerin 0.4 mg SL Q5MIN PRN MR X 3 PRN 12/02/22 [History] PARoxetine HCL [Paroxetine HCl] 40 mg PO DAILY 12/02/22 [History] Albuterol Sulfate [Albuterol Sulfate Hfa] 2 puff IH UD 05/05/24 [History] Aspirin EC 81 mg [Ecotrin 81 mg] 81 mg PO DAILY 05/05/24 [History] Cyclobenzaprine HCl 10 mg [Cyclobenzaprine 10 MG] 10 mg PO UD 05/05/24 [History] Fluticasone Propionate 50 mcg IH UD 05/05/24 [History] Nicotine 21 mg [Nicoderm CQ 21 MG] 21 mg TOP DAILY 05/05/24 [History] Omeprazole 20 mg PO UD 05/05/24 [History] Potassium Chloride [Klor-Con M20] 20 meq PO UD 05/05/24 [History] Hx Tetanus, Diphtheria Vaccination/Date Given: Yes Hx Influenza Vaccination/Date Given: No Hx Pneumococcal Vaccination/Date Given: No - Review of Systems Constitutional: No Symptoms Eyes: No Symptoms Ears, Nose, & Throat: No Symptoms Respiratory: No Symptoms, No Cough, No Dyspnea Cardiac: No Symptoms, No Chest Pain, No Edema, No Syncope Abdominal/Gastrointestinal: No Symptoms, No Abdominal Pain, No Nausea, No Vomiting, No Diarrhea Genitourinary Symptoms: No Symptoms, No Dysuria Musculoskeletal: No Symptoms, No Back Pain, No Neck Pain Skin: No Symptoms, No Rash Neurological: No Symptoms, No Dizziness, No Focal Weakness, No Sensory Changes Psychological: No Symptoms Endocrine: No Symptoms Hematologic/Lymphatic: No Symptoms Immunological/Allergic: No Symptoms All Other Systems: Reviewed and Negative - Past Medical History Pertinent Past Medical History: Yes Neurological History: No Pertinent History ENT History: No Pertinent History Cardiac History: Myocardial Infarction (MD) Respiratory History: Asthma, COPD Endocrine Medical History: No Pertinent History Musculoskeletal History: No Pertinent History GI Medical History: No Pertinent History History: No Pertinent History Psycho-Social History: No Pertinent History, Depression Female Reproductive Disorders: No Pertinent History - Past Surgical History Past Surgical History: Yes Neuro Surgical History: No Pertinent History Cardiac: Other Respiratory: No Pertinent History Gastrointestinal: Appendectomy Genitourinary: No Pertinent History Musculoskeletal: No Pertinent History Female Surgical History: Tubal Ligation Other Surgical History: open heart- remove growth from heart- 2015, Repair of mitral valve, repair left ventericular anueusysm, mass removal from heart. Current smoker - Social History Smoking Status: Current every day smoker How long have you smoked: 40 y Exposure to second hand smoke: No Drug Use: marijuana Patient Lives Alone: Yes - Nursing Vital Signs Nursing Vital Signs: Initial Vital Signs Temperature 98.1 F 06/29/24 07:35 Pulse Rate 94 H 06/29/24 07:35 Respiratory Rate 32 H 06/29/24 07:35 Blood Pressure 135/83 06/29/24 07:35 O2 Sat by Pulse Oximetry 84 L 06/29/24 07:35 Pain Scale Pain Intensity 0 - Physical Exam General Appearance: no apparent distress, alert Eye Exam: PERRL/EOMI, eyes nml inspection Neck Exam: normal inspection, supple Respiratory Exam: diminished breath sounds, rhonchi, wheezing Cardiovascular/Chest Exam: normal heart sounds, regular rate/rhythm Abdominal/Gastrointestinal Exam: soft, No tenderness, No distention, No mass Extremity Exam: non-tender, normal range of motion, normal inspection, no calf tenderness, no pedal edema Neurologic Exam: alert, oriented x 3, cooperative, tool repair technician II-XII nml as tested, sensation nml, No motor deficits Skin Exam: normal color, warm, No dry SpO2 Interpretation: normal O2 Delivery: Room Air - Course Nursing assessment & vital signs reviewed: Yes EKG Interpreted by Me: RATE (93), Sinus Rhythm, NORMAL AXIS, NORMAL INTERVALS, NORMAL QRS - Radiology Exams Chest X-ray Interpretation: Teleradiologist Report (Nonacute chest with chronic features) Ordered Tests: Active Orders 24 hr Category Date Time Status Heel Builder Machine STAT Care 06/29/24 07:35 Active EKG-ER Only STAT Care 06/29/24 07:34 Active IV Insertion STAT Care 06/29/24 07:34 Active Pulse Oximetry (ED) STAT Care 06/29/24 07:34 Active CHEST 1 VIEW (PORTABLE) Stat Exams 06/29/24 07:35 Completed BLOOD CULTURE Stat Lab 06/29/24 08:00 Received CBC W DIFF Stat Lab 06/29/24 07:50 Completed CMP Stat Lab 06/29/24 07:50 Completed Lactic Acid Stat Lab 06/29/24 07:45 Completed NT PRO BNPII Stat Lab 06/29/24 07:50 Completed TROPONIN Q4H Lab 06/29/24 07:50 Completed TROPONIN Q4H Lab 06/29/24 11:45 Ordered TROPONIN Q4H Lab 06/29/24 15:45 Ordered Respiratory Therapy Assessment ONCE RT 06/29/24 07:55 Active Medication Summary Discontinued Medications Generic Name Dose Route Start Last Admin Trade Name Ayanq PRN Reason Stop Dose Admin Albuterol/Ipratropium 3 ml 06/29/24 07:34 06/29/24 07:53 Ipratropium/Albuterol Sulfate 3 Ml Ampul.Neb IH 06/29/24 07:35 3 ml STAT ONE Administration Albuterol/Ipratropium Confirm 06/29/24 07:52 Ipratropium/Albuterol Sulfate 3 Ml Ampul.Neb Administered 06/29/24 07:53 Dose 3 ml IH .STK-MED ONE Methylprednisolone Sodium 0 mg 06/29/24 07:34 06/29/24 07:54 Succinate 125 mg/ Sterile IV 06/29/24 07:35 125 mg Water 2 ml STAT ONE Administration Ceftriaxone Sodium 2 gm in 100 mls @ 200 mls/hr 06/29/24 07:34 06/29/24 08:01 Rocephin 2 Gm/100 Ml Nacl IV 06/29/24 08:03 Not Given STAT ONE Azithromycin 500 mg in 250 mls @ 250 mls/hr 06/29/24 07:34 06/29/24 08:04 Zithromax 500 Mg/ 250 Ml Nacl Premix IV 06/29/24 08:33 Not Given STAT STA Ceftriaxone Sodium Confirm 06/29/24 07:54 Rocephin 1 Gm / 100 Ml Nacl Administered 06/29/24 07:55 Dose 1 gm in 100 mls @ ud IV .STK-MED ONE Ceftriaxone Sodium Confirm 06/29/24 07:59 Rocephin 2 Gm/100 Ml Nacl Administered 06/29/24 08:00 Dose 2 gm in 100 mls @ ud IV .STK-MED ONE Levofloxacin/Dextrose 500 mg in 100 mls @ 100 mls/hr 06/29/24 08:05 06/29/24 09:28 Levofloxacin 500mg/100ml D5w IV 06/29/24 09:04 Infused STAT STA Infusion Levofloxacin/Dextrose Confirm 06/29/24 08:08 Levofloxacin 500mg/100ml D5w Administered 06/29/24 08:09 Dose 500 mg in 100 mls @ ud IV .STK-MED ONE Methylprednisolone Sodium Succinate Confirm 06/29/24 07:53 Methylprednis Sod Succ 125 Mg/2 Ml Vial Administered 06/29/24 07:54 Dose 125 mg .ROUTE .STK-MED ONE Sterile Water Confirm 06/29/24 07:53 Water For Injection,Sterile 10 Ml Vial Administered 06/29/24 07:54 Dose 10 ml IJ .STK-MED ONE Lab/Rad Data: Laboratory Result Diagrams 06/29/24 07:50 06/29/24 07:50 Laboratory Results 06/29/24 06/29/24 06/29/24 Range/Units 08:05 07:50 07:50 WBC (3.98-10.04) x10^3/uL RBC (3.93-5.22) x10^6/uL Hgb (11.2-15.7) g/dL Hct (34.1-44.9) % MCV (79.4-94.8) fL MCH (25.6-32.2) pg MCHC (32.2-35.5) g/dL RDW (11.7-14.4) % Plt Count (182-369) x10^3/uL MPV (9.4-12.3) fL Gran % (34.0-71.1) % Immature Gran % (Auto) (0.001-0.429) % Nucleat RBC Rel Count (0.00-0.2) % Eos # (Auto) (0.04-0.36) x10^3/uL Immature Gran # (Auto) (0.001-0.031) x10^3u/L Absolute Lymphs (auto) (1.18-3.74) x10^3/uL Absolute Monos (auto) (0.24-0.86) x10^3/uL Absolute Nucleated RBC (0.00-0.012) x10^3u/L Lymphocytes % (19.3-51.7) % Monocytes % (4.7-12.5) % Eosinophils % (0.7-5.8) % Basophils % (0.1-1.2) % Absolute Granulocytes (1.56-6.13) x10^3/uL Basophils # (0.01-0.08) x10^3/uL Sodium 138 (135-145) mmol/L Potassium 3.6 (3.5-5.1) mmol/L Chloride 108 H (98-107) mmol/L Carbon Dioxide 26 (22-30) mmol/L Anion Gap 8.6 (5-15) MEQ/L BUN 17 (7-17) mg/dL Creatinine 0.65 (0.52-1.04) mg/dL Estimated GFR 97.0 ML/MIN Glucose 121 H (74-106) mg/dL Lactic Acid (0.4-2.0) Calcium 8.7 (8.4-10.2) mg/dL Total Bilirubin 0.40 (0.2-1.3) mg/dL AST 39 H (14-36) U/L ALT 33 (0-35) U/L Alkaline Phosphatase 134 H (38-126) U/L Troponin I < 0.012 (0.000-0.033) ng/mL NT-Pro-B Natriuret Pep 268 (<300) pg/mL Serum Total Protein 6.9 (6.3-8.2) g/dL Albumin 4.0 (3.5-5.0) g/dL Influenza Type A Ag NEGATIVE (NEGATIVE) Influenza Type B Ag NEGATIVE (NEGATIVE) RSV (PCR) NEGATIVE (NEGATIVE) SARS-CoV-2 (PCR) NEGATIVE (NEGATIVE) 06/29/24 06/29/24 Range/Units 07:50 07:45 WBC 5.1 (3.98-10.04) x10^3/uL RBC 4.08 (3.93-5.22) x10^6/uL Hgb 11.9 (11.2-15.7) g/dL Hct 37.2 (34.1-44.9) % MCV 91.2 (79.4-94.8) fL MCH 29.2 (25.6-32.2) pg MCHC 32.0 L (32.2-35.5) g/dL RDW 14.5 H (11.7-14.4) % Plt Count 164 L (182-369) x10^3/uL MPV 9.9 (9.4-12.3) fL Gran % 65.9 (34.0-71.1) % Immature Gran % (Auto) 0.0 L (0.001-0.429) % Nucleat RBC Rel Count 0.0 (0.00-0.2) % Eos # (Auto) 0.22 (0.04-0.36) x10^3/uL Immature Gran # (Auto) 0.00 L (0.001-0.031) x10^3u/L Absolute Lymphs (auto) 1.00 L (1.18-3.74) x10^3/uL Absolute Monos (auto) 0.51 (0.24-0.86) x10^3/uL Absolute Nucleated RBC 0.00 (0.00-0.012) x10^3u/L Lymphocytes % 19.6 (19.3-51.7) % Monocytes % 10.0 (4.7-12.5) % Eosinophils % 4.3 (0.7-5.8) % Basophils % 0.2 (0.1-1.2) % Absolute Granulocytes 3.37 (1.56-6.13) x10^3/uL Basophils # 0.01 (0.01-0.08) x10^3/uL Sodium (135-145) mmol/L Potassium (3.5-5.1) mmol/L Chloride (98-107) mmol/L Carbon Dioxide (22-30) mmol/L Anion Gap (5-15) MEQ/L BUN (7-17) mg/dL Creatinine (0.52-1.04) mg/dL Estimated GFR ML/MIN Glucose (74-106) mg/dL Lactic Acid 1.3 (0.4-2.0) Calcium (8.4-10.2) mg/dL Total Bilirubin (0.2-1.3) mg/dL AST (14-36) U/L ALT (0-35) U/L Alkaline Phosphatase (38-126) U/L Troponin I (0.000-0.033) ng/mL NT-Pro-B Natriuret Pep (<300) pg/mL Serum Total Protein (6.3-8.2) g/dL Albumin (3.5-5.0) g/dL Influenza Type A Ag (NEGATIVE) Influenza Type B Ag (NEGATIVE) RSV (PCR) (NEGATIVE) SARS-CoV-2 (PCR) (NEGATIVE) - Progress Progress: improved Air Movement: good Progress Note: 68-year-old female history of COPD presents to our ED for evaluation of progressive shortness of breath. Physical exam reveals wheezing diminished breath sounds and rhonchi. Patient hypoxic upon arrival requiring oxygen via nasal cannula. Chest x-ray negative for acute pathology. Diagnosis is COPD exacerbation. Breathing treatment administered. Solu-Medrol administered blood cultures obtained antibiotics infused. Patient reassessed. Patient breathing much easier however still requires nasal cannula. Patient will require hospitalization for further evaluation and treatment. Plan of care discussed with patient. She agrees to admission at [facility] for further evaluation and treatment. Portions of this note were created with voice recognition technology. There may be grammatical, spelling, punctuation or sound alike errors Complexity of problem addressed is moderate acute complicated. No critical care time. Complexity of data reviewed and analyzed is extensive. Test ordered chest reviewed results analyzed and correlated clinically with history and physical exam. Risk of complication at or risk of morbidity/mortality of patient management is high. Patient requires hospitalization for further ev aluation and treatment. Vital stable. Time spent to admit patient approximately 20 minutes. Plan of care established for shared decision making. No social determinants of health present to impede follow-up. Portions of this note were created with voice recognition technology. There may be grammatical, spelling, punctuation or sound alike errors 06/29/24 09:50 Case discussed with hospitalist Dr. Sagastume who accepts admission to observation at 10 AM 06/29/24 10:02 Blood Culture(s) Obtained: Yes Antibiotics given: Yes Counseled pt/family regarding: lab results, diagnosis, rad results - Departure Departure Disposition: Observation Clinical Impression: Hypoxia, COPD exacerbation Condition: Stable Critical Care Time: No Referrals: SETH FRANKLIN DO [Primary Care Provider] - Follow up/PCP as directed Instructions: Chronic Obstructive Pulmonary Disease
[2024-06-29] MEDS ORDERED: DUONEB 0.5-3 MG/3 ml Neb IH ONE ×2 (07:52→11:22)
[2024-06-29] MEDS ORDERED: Sterile H2O 10 ml IJ ONE (07:53)
[2024-06-29] MEDS ORDERED: solu-MEDROL ONE (07:53)
[2024-06-29] MEDS: DUONEB 0.5-3 MG/3 ml Neb IH ONE (07:53)
[2024-06-29] MEDS: solu-MEDROL 125 MG, Sterile H2O 10 ml 2 ML IV ONE (07:54)
[2024-06-29] MEDS ORDERED: ROCEPHIN 1 GM / 100 ML NaCl 0 GM/0 ML IVPB IV ONE (07:54)
[2024-06-29] MEDS ORDERED: ROCEPHIN 2 GM/100 ML NACL 0 GM/0 ML IVPB IV ONE (07:59)
[2024-06-29] MEDS: ROCEPHIN 2 GM/100 ML NACL 2 GM/100 ML IVPB IV ONE (08:01)
[2024-06-29 08:04] LABS: Absolute Neutrophil Ct (ANC) 3.37 x10^3/uL (1.56-6.13); BASOPHIL % 0.2 % (0.1-1.2); Basophil (Absolute #) 0.01 x10^3/uL (0.01-0.08); Eosinophil % 4.3 % (0.7-5.8); Eosinophil (Absolute #) 0.22 x10^3/uL (0.04-0.36); Hematocrit 37.2 % (34.1-44.9); Hemoglobin 11.9 g/dL (11.2-15.7); Lymphocytes % 19.6 % (19.3-51.7); Mean Cell Volume 91.2 fL (79.4-94.8); Mean Corpuscular Hemoglobin 29.2 pg (25.6-32.2); Mean Platelet Volume 9.9 fL (9.4-12.3); Monocyte (Absolute #) 0.51 x10^3/uL (0.24-0.86); Neutrophil % 65.9 % (34.0-71.1); Platelet Count 164 x10^3/uL (182-369); Red Blood Count 4.08 x10^6/uL (3.93-5.22); Red Cell Distribution Width 14.5 % (11.7-14.4); White Blood Count 5.1 x10^3/uL (3.98-10.04)
[2024-06-29] MEDS: Zithromax 500 MG/ 250 ML NaCl Premix 500 MG/250 ML IVPB IV STA (08:04)
[2024-06-29] MEDS ORDERED: Levofloxacin 500MG/100ML D5W 500 MG/100 ML BAG IV ONE (08:08)
[2024-06-29] MEDS: Levofloxacin 500MG/100ML D5W 500 MG/100 ML BAG IV STA (08:10)
[2024-06-29 08:30] LABS: ANION GAP 8.6 MEQ/L (5-15); BILIRUBIN,TOTAL 0.4 mg/dL (0.2-1.3); Calcium 8.7 mg/dL (8.4-10.2); Creatinine 1 0.65 mg/dL (0.52-1.04); Potassium 3.6 mmol/L (3.5-5.1); Total Protein 6.9 g/dL (6.3-8.2)
[2024-06-29 08:47] LABS: INFLUENZA A NEGATIVE (NEGATIVE); INFLUENZA B NEGATIVE (NEGATIVE); RESPIRATORY SYNCTIAL VIRUS NEGATIVE (NEGATIVE); SARS-CoV-2 Xpert Express NEGATIVE (NEGATIVE)
--- NOTE | 2024-06-29 09:34 | XRAY ---
Indication: Short of breath. Comparison: September 01, 2023 Portable chest is now clear. Heart not enlarged again with mitral valve replacement. Grossly stable small hiatal hernia. Bony thorax intact again with osteopenia and mild degenerative changes. Impression: Nonacute chest with chronic features.
[2024-06-29] MEDS ORDERED: PROVENTIL 2.5 MG/3 ML NEB IH PRN (11:43)
--- NOTE | 2024-06-29 12:30 | PCM.HP ---
History of Present Illness - Chief Complaint Chief Complaint: COPD exacerbation, hypoxia Date: 06/29/24 History of Present Illness: is a 68 year old female with PMHX of COPD, asthma, daily smoker, [place], open heart surgery, and chronic obesity. She presented to our emergency department for evaluation of progressive shortness of breath that started for 5 days ago. Shortness of breath associated with a productive cough of yellow- brownish sputum. She tried increasing breathing treatments and this was not helpful as she had continued SOB and came to the ER. Upon arrival to our ED patient was hypoxic. Patient normally does not require home oxygen. However patient required oxygen upon arrival to our ED and now on 2lNC 95%. No associated chest pain or shortness of breath. No nausea vomiting or diaphoresis. Shortness of breath worse with exertion. Patient is a smoker however states she is currently trying to quit. Patient has not smoked in approximately 1 week. Patient otherwise feels well. No nausea no vomiting no diaphoresis. Patient reports that today symptoms are typical of her usual COPD exacerbations. Patient voices no other complaints or concerns at this time. - Review of Systems Constitutional: No Fever, No Chills Eyes: No Symptoms Ears, Nose, & Throat: No Symptoms Respiratory: Cough, Short Of Breath, Wheezing Cardiac: No Chest Pain, No Edema, No Syncope Abdominal/Gastrointestinal: No Abdominal Pain, No Nausea, No Vomiting, No Diarrhea Genitourinary Symptoms: No Dysuria Musculoskeletal: No Back Pain, No Neck Pain Skin: No Rash Neurological: No Dizziness, No Focal Weakness, No Sensory Changes Psychological: No Symptoms Endocrine: No Symptoms Hematologic/Lymphatic: No Symptoms Immunological/Allergic: No Symptoms Medications & Allergies Home Medications: Home Medication List Ibuprofen 200 mg [Motrin 200 mg] 800 mg PO BIDPRN PRN 08/12/18 [History Confirmed 06/29/24] Atorvastatin Calcium 40 mg PO HS 12/02/22 [History Confirmed 06/29/24] Carvedilol [Coreg ] 6.25 mg PO BID 12/02/22 [History Confirmed 06/29/24] Furosemide [Lasix] 20 mg PO DAILY 12/02/22 [History Confirmed 06/29/24] Losartan Potassium 50 mg PO DAILY 12/02/22 [History Confirmed 06/29/24] Montelukast Sodium 10 mg [Singulair 10 MG] 10 mg PO DAILY 12/02/22 [History Confirmed 06/29/24] Nitroglycerin 0.4 mg SL Q5MIN PRN MR X 3 PRN 12/02/22 [History Confirmed 06/29/24] PARoxetine HCL [Paroxetine HCl] 40 mg PO DAILY PRN PRN 12/02/22 [History Confirmed 06/29/24] Albuterol/Ipratropium 3ml Neb* [DUONEB 0.5-3 MG/3 ml Neb] 1 neb IH QID #1 12/03/22 [Rx Confirmed 06/29/24] Guaifenesin 600 mg ER [Mucinex 600MG ER Tabs] 600 mg PO BID #14 tablet 12/03/22 [Rx Confirmed 06/29/24] Albuterol Sulfate [Albuterol Sulfate Hfa] 2 puff IH UD 05/05/24 [History Confirmed 06/29/24] Aspirin EC 81 mg [Ecotrin 81 mg] 81 mg PO DAILY 05/05/24 [History Confirmed 06/29/24] Cyclobenzaprine HCl 10 mg [Cyclobenzaprine 10 MG] 10 mg PO HS 05/05/24 [History Confirmed 06/29/24] Fluticasone Propionate 50 mcg IH DAILY 05/05/24 [History Confirmed 06/29/24] Omeprazole 20 mg PO DAILY 05/05/24 [History Confirmed 06/29/24] Potassium Chloride [Klor-Con M20] 20 meq PO DAILY 05/05/24 [History Confirmed 06/29/24] Allergies/Adverse Reactions: Allergies Allergy/AdvReac Type Severity Reaction Status Date / Time ampicillin [Ampicillin] Allergy Verified 06/29/24 07:35 Penicillins Allergy Verified 06/29/24 07:35 vitafusion D Allergy Uncoded 06/29/24 07:35 - Past Medical History Past Medical History: Yes Neurological History: No Pertinent History ENT History: No Pertinent History Cardiac History: Myocardial Infarction ([place]) Respiratory History: Asthma, COPD Endocrine Medical History: No Pertinent History Musculoskelatal History: No Pertinent History GI Medical History: No Pertinent History History: No Pertinent History Pyscho-Social History: Depression Reproductive Disorders: No Pertinent History - Past Surgical History Past Surgical History: Yes Neuro Surgical History: No Pertinent History Cardiac History: Other Respiratory Surgery: No Pertinent History GI Surgical History: Appendectomy Genitourinary Surgical Hx: No Pertinent History Musculskeletal Surgical Hx: No Pertinent History Female Surgical History: Tubal Ligation Other Surgical History: open heart- remove growth from heart- 2015, Repair of mitral valve, repair left ventericular anueusysm, mass removal from heart.quit smoking 1 week ago - Social History Smoking Status: Former smoker How long have you smoked: 40 y Exposure to second hand smoke: Yes Alcohol: Occasionally Drug Use: marijuana - Social Determinants of Health Will the patient participate in the screening: Yes Do you worry about a steady place to live?: No Do you have any problems with any of the following?: No known problems In the past 12 months,have you had to go without utilities?: No Have you or anyone in your house had to go without enough: No Transportation Issues: No Has anyone in your support network made you feel unsafe?: No Does the patient want assistance with any of the above?: No - Physical Exam Vital Signs: Vital Signs - 24 hr Temp Pulse Resp BP BP Pulse Ox 06/29/24 11:53 112 H 06/29/24 11:46 95 06/29/24 11:43 108 H 28 H 95 06/29/24 11:02 97.1 F 94 H 28 H 165/90 95 06/29/24 10:58 97.1 F 94 H 24 165/90 95 06/29/24 10:47 95 06/29/24 10:00 94 H 22 151/86 91 L 06/29/24 09:30 90 29 H 135/84 95 06/29/24 09:00 90 24 144/78 93 L 06/29/24 08:52 92 H 26 H 153/80 95 06/29/24 08:51 90 25 H 94 L 06/29/24 07:55 95 H 18 95 06/29/24 07:44 84 L 06/29/24 07:35 98.1 F 94 H 32 H 135/83 84 L General Appearance: no apparent distress, alert, obese Neurologic Exam: alert, oriented x 3, cooperative, normal mood/affect, nml cerebellar function, nml station & gait, sensation nml, No motor deficits Eye Exam: PERRL/EOMI, eyes nml inspection Ears, Nose, Throat Exam: normal ENT inspection, TMs normal, pharynx normal, moist mucous membranes Neck Exam: normal inspection, non-tender, supple, full range of motion Respiratory Exam: crackles/rales, wheezing, No respiratory distress Cardiovascular Exam: regular rate/rhythm, normal heart sounds, normal peripheral pulses Gastrointestinal/Abdomen Exam: soft, normal bowel sounds, No tenderness, No mass Back Exam: normal inspection, normal range of motion, No CVA tenderness, No vertebral tenderness Extremity Exam: normal inspection, normal range of motion, pelvis stable Skin Exam: normal color, warm, dry, No rash Lymphatic Exam: No adenopathy Results - Labs Lab/Micro Results: Lab Results-Last 24 Hours 06/29/24 06/29/24 06/29/24 Range/Units 07:45 07:50 07:50 WBC 5.1 (3.98-10.04) x10^3/uL RBC 4.08 (3.93-5.22) x10^6/uL Hgb 11.9 (11.2-15.7) g/dL Hct 37.2 (34.1-44.9) % MCV 91.2 (79.4-94.8) fL MCH 29.2 (25.6-32.2) pg MCHC 32.0 L (32.2-35.5) g/dL RDW 14.5 H (11.7-14.4) % Plt Count 164 L (182-369) x10^3/uL MPV 9.9 (9.4-12.3) fL Gran % 65.9 (34.0-71.1) % Immature Gran % (Auto) 0.0 L (0.001-0.429) % Nucleat RBC Rel Count 0.0 (0.00-0.2) % Eos # (Auto) 0.22 (0.04-0.36) x10^3/uL Immature Gran # (Auto) 0.00 L (0.001-0.031) x10^3u/L Absolute Lymphs (auto) 1.00 L (1.18-3.74) x10^3/uL Absolute Monos (auto) 0.51 (0.24-0.86) x10^3/uL Absolute Nucleated RBC 0.00 (0.00-0.012) x10^3u/L Lymphocytes % 19.6 (19.3-51.7) % Monocytes % 10.0 (4.7-12.5) % Eosinophils % 4.3 (0.7-5.8) % Basophils % 0.2 (0.1-1.2) % Absolute Granulocytes 3.37 (1.56-6.13) x10^3/uL Basophils # 0.01 (0.01-0.08) x10^3/uL Sodium 138 (135-145) mmol/L Potassium 3.6 (3.5-5.1) mmol/L Chloride 108 H (98-107) mmol/L Carbon Dioxide 26 (22-30) mmol/L Anion Gap 8.6 (5-15) MEQ/L BUN 17 (7-17) mg/dL Creatinine 0.65 (0.52-1.04) mg/dL Estimated GFR 97.0 ML/MIN Glucose 121 H (74-106) mg/dL Lactic Acid 1.3 (0.4-2.0) Calcium 8.7 (8.4-10.2) mg/dL Total Bilirubin 0.40 (0.2-1.3) mg/dL AST 39 H (14-36) U/L ALT 33 (0-35) U/L Alkaline Phosphatase 134 H (38-126) U/L Troponin I (0.000-0.033) ng/mL NT-Pro-B Natriuret Pep 268 (<300) pg/mL Serum Total Protein 6.9 (6.3-8.2) g/dL Albumin 4.0 (3.5-5.0) g/dL Influenza Type A Ag (NEGATIVE) Influenza Type B Ag (NEGATIVE) RSV (PCR) (NEGATIVE) SARS-CoV-2 (PCR) (NEGATIVE) 06/29/24 06/29/24 Range/Units 07:50 08:05 WBC (3.98-10.04) x10^3/uL RBC (3.93-5.22) x10^6/uL Hgb (11.2-15.7) g/dL Hct (34.1-44.9) % MCV (79.4-94.8) fL MCH (25.6-32.2) pg MCHC (32.2-35.5) g/dL RDW (11.7-14.4) % Plt Count (182-369) x10^3/uL MPV (9.4-12.3) fL Gran % (34.0-71.1) % Immature Gran % (Auto) (0.001-0.429) % Nucleat RBC Rel Count (0.00-0.2) % Eos # (Auto) (0.04-0.36) x10^3/uL Immature Gran # (Auto) (0.001-0.031) x10^3u/L Absolute Lymphs (auto) (1.18-3.74) x10^3/uL Absolute Monos (auto) (0.24-0.86) x10^3/uL Absolute Nucleated RBC (0.00-0.012) x10^3u/L Lymphocytes % (19.3-51.7) % Monocytes % (4.7-12.5) % Eosinophils % (0.7-5.8) % Basophils % (0.1-1.2) % Absolute Granulocytes (1.56-6.13) x10^3/uL Basophils # (0.01-0.08) x10^3/uL Sodium (135-145) mmol/L Potassium (3.5-5.1) mmol/L Chloride (98-107) mmol/L Carbon Dioxide (22-30) mmol/L Anion Gap (5-15) MEQ/L BUN (7-17) mg/dL Creatinine (0.52-1.04) mg/dL Estimated GFR ML/MIN Glucose (74-106) mg/dL Lactic Acid (0.4-2.0) Calcium (8.4-10.2) mg/dL Total Bilirubin (0.2-1.3) mg/dL AST (14-36) U/L ALT (0-35) U/L Alkaline Phosphatase (38-126) U/L Troponin I < 0.012 (0.000-0.033) ng/mL NT-Pro-B Natriuret Pep (<300) pg/mL Serum Total Protein (6.3-8.2) g/dL Albumin (3.5-5.0) g/dL Influenza Type A Ag NEGATIVE (NEGATIVE) Influenza Type B Ag NEGATIVE (NEGATIVE) RSV (PCR) NEGATIVE (NEGATIVE) SARS-CoV-2 (PCR) NEGATIVE (NEGATIVE) - Radiology Impressions Radiology Exams & Impressions: Radiology Procedures Category Date Time Status CHEST 1 VIEW (PORTABLE) Stat Exams 06/29/24 07:35 Completed - Other Procedures and Tests Respiratory Therapy 06/29/24 07:55 Respiratory Therapy Assessment ONCE 06/29/24 11:43 Oxygen NASAL CANNULA 2 lpm Assessment/Plan (1) COPD exacerbation Current Visit: Yes Status: Acute Assessment & Plan: - Duadal, pratima, jared - start Levaquin d/t med allergies - Mucinex Code(s): J44.1 - CHRONIC OBSTRUCTIVE PULMONARY DISEASE W (ACUTE) EXACERBATION (2) Hypoxia Current Visit: Yes Status: Acute Assessment & Plan: - See above COPD plan - O2 2lNC 95%- baseline RA - CXR: Impression: Nonacute chest with chronic features. Code(s): R09.02 - HYPOXEMIA (3) Coronary artery disease Current Visit: No Status: Chronic Assessment & Plan: - Continue home meds - tele - heart healthy diet Code(s): I25.10 - ATHSCL HEART DISEASE OF [place] CORONARY ARTERY W/O ANG PCTRS (4) Obesity (BMI 30-39.9) Current Visit: Yes Status: Chronic Assessment & Plan: - advised heart healthy diet and exercise control per cardiology recs Code(s): E66.9 - OBESITY, UNSPECIFIED (5) Smoker Current Visit: Yes Status: Chronic Assessment & Plan: - advised cessation - nicotine patch VTE: Lovenox PPI: protonix Next of KIN: Alyssa Doll [phone] D/C plan: 1-2 days Code status: Full Code(s): F17.200 - NICOTINE DEPENDENCE, UNSPECIFIED, UNCOMPLICATED
[2024-06-29] MEDS ORDERED: PAROXETINE HCL 40 MG PO PRN (12:32)
[2024-06-29] MEDS ORDERED: Paxil 20 MG PO PRN (12:51)
[2024-06-29] MEDS: Coreg PO SCH (13:07)
[2024-06-29] MEDS: Klor Con PO SCH (13:07)
[2024-06-29] MEDS: ECOTRIN 81 MG PO SCH (13:07)
[2024-06-29] MEDS: Singulair 10 MG PO SCH (13:08)
[2024-06-29] MEDS: LASIX 20 MG PO SCH (13:08)
[2024-06-29] MEDS: Protonix 20MG Tablet PO SCH (13:08)
[2024-06-29] MEDS: Cozaar 50 MG PO SCH (13:09)
[2024-06-29] MEDS: NICODERM CQ 14 MG TOP SCH (13:09)
[2024-06-29] MEDS: Mucinex 600MG ER Tabs PO SCH (13:12)
[2024-06-29] MEDS: DUONEB 0.5-3 MG/3 ml Neb IH SCH (15:08)
[2024-06-29] MEDS: Advair Hfa 115/21 Common canister IH SCH (16:27)
[2024-06-29] MEDS ORDERED: LIPITOR 40MG PO SCH (22:00)
[2024-06-29] MEDS: solu-MEDROL 40 MG, Sterile H2O 10 ml 1 ML IV SCH (22:51)
[2024-06-29] MEDS: Cyclobenzaprine 10 MG PO SCH (22:51)
[2024-06-29] MEDS: ZOCOR 20MG PO SCH (22:51)
[2024-06-29] MEDS: Zofran 4 MG/2 ML VIAL IV PRN (22:52)
[2024-06-30] MEDS: MOTRIN 200 MG PO PRN (01:41)
[2024-06-30 04:50] LABS: Hematocrit 34.7 % (34.1-44.9); Hemoglobin 10.7 g/dL (11.2-15.7); Mean Cell Volume 92.3 fL (79.4-94.8); Mean Corpuscular Hemoglobin 28.5 pg (25.6-32.2); Mean Corpuscular Hgb Concent. 30.8 g/dL (32.2-35.5); Mean Platelet Volume 10.3 fL (9.4-12.3); Platelet Count 199 x10^3/uL (182-369); Red Blood Count 3.76 x10^6/uL (3.93-5.22); Red Cell Distribution Width 14.6 % (11.7-14.4); White Blood Count 7.7 x10^3/uL (3.98-10.04)
[2024-06-30 05:20] LABS: ALBUMIN 3.6 g/dL (3.5-5.0); ANION GAP 9.5 MEQ/L (5-15); BILIRUBIN,TOTAL 0.3 mg/dL (0.2-1.3); Calcium 8.7 mg/dL (8.4-10.2); Creatinine 1 0.76 mg/dL (0.52-1.04); EST GLOMERULAR FILTRATION RATE 86.4 ML/MIN; Potassium 3.9 mmol/L (3.5-5.1); Total Protein 6.2 g/dL (6.3-8.2)
[2024-06-30] MEDS ORDERED: NON-FORMULARY ITEM (Fluticasone Propionate [Fluticasone Propionate] 50 MCG Blst.W.Dev) IH SCH (10:00)
[2024-06-30] MEDS ORDERED: NON-FORMULARY ITEM (Potassium Chloride [Klor-Con M20] 20 MEQ Tab.Er.Prt) PO SCH (10:00)
[2024-06-30] MEDS ORDERED: NON-FORMULARY ITEM (Omeprazole [Omeprazole] 20 MG Capsule.Dr) PO SCH (10:00)
[2024-06-30] MEDS: Flonase NASAL NS SCH (11:10)
[2024-06-30 11:29] LABS: IFOB TEST RESULTS POSITIVE (NEGATIVE)
[2024-06-30] MEDS: ENOXAPARIN SODIUM SQ SCH (11:39)
[2024-06-30] MEDS: PROTONIX 40 MG IV*** 80 MG in Sodium Chloride 0.9% 500 ML 500 ML IV SCH (11:44)
--- NOTE | 2024-06-30 11:45 | PCM.NOTE ---
Date and Time: 06/30/24 1137 Subjective Assessment: 06/29/24 is a 68 year old female with PMHX of COPD, asthma, daily smoker, [place], open heart surgery, and chronic obesity. She presented to our emergency department for evaluation of progressive shortness of breath that started for 5 days ago. Shortness of breath associated with a productive cough of yellow- brownish sputum. She tried increasing breathing treatments and this was not helpful as she had continued SOB and came to the ER. Upon arrival to our ED patient was hypoxic. Patient normally does not require home oxygen. However patient required oxygen upon arrival to our ED and now on 2lNC 95%. No associated chest pain or shortness of breath. No nausea vomiting or diaphoresis. Shortness of breath worse with exertion. Patient is a smoker however states she is currently trying to quit. Patient has not smoked in approximately 1 week. Patient otherwise feels well. No nausea no vomiting no diaphoresis. Patient reports that today symptoms are typical of her usual COPD exacerbations. Patient voices no other complaints or concerns at this time. 06/30/24 Pt up to the restroom and vomiting dark coffee ground emesis and having dark bloody stools. Occult stool +, GS consulted for EGD/ Colonoscopy. Lovenox and ASA held, pt made NPO. Protonix gtt started. Hgb stableat 10.7. Will order serial H&H. Pt continues to have SOB and wheezing. Continue IV antibiotics, steroids, and duonebs. She is c/O LLQ pain. She denies chest pain. - Review of Systems Constitutional: No Fever, No Chills Eyes: No Symptoms Ears, Nose, & Throat: No Symptoms Respiratory: Cough, Short Of Breath, Wheezing Cardiac: No Chest Pain, No Edema, No Syncope Abdominal/Gastrointestinal: Abdominal Pain, Nausea, Vomiting, Diarrhea, Hematemesis, Hematochezia Genitourinary Symptoms: No Dysuria Musculoskeletal: No Back Pain, No Neck Pain Skin: No Rash Neurological: No Dizziness, No Focal Weakness, No Sensory Changes Psychological: No Symptoms Endocrine: No Symptoms Hematologic/Lymphatic: No Symptoms Immunological/Allergic: No Symptoms Objective Exam General Appearance: mild distress, alert, obese Neurologic Exam: alert, oriented x 3, cooperative, normal mood/affect, nml cerebellar function, sensation nml, No motor deficits Skin Exam: normal color, warm, dry Eye Exam: PERRL, EOMI, eyes nml inspection Ears, Nose, Throat Exam: normal ENT inspection, pharynx normal, moist mucous membranes Neck Exam: normal inspection, non-tender, supple, full range of motion Respiratory Exam: rhonchi, wheezing, No respiratory distress Cardiovascular Exam: regular rate/rhythm, normal heart sounds Gastrointestinal/Abdomen Exam: soft, tenderness (LLQ), No mass Extremity Exam: normal inspection, normal range of motion Back Exam: normal inspection, normal range of motion, No CVA tenderness, No vertebral tenderness Pelvic Exam: deferred Rectal Exam: deferred Objective Data Vital Signs: Vital Signs - 24 hr Temp Pulse Resp BP Pulse Ox 06/30/24 10:09 116 H 23 100 06/30/24 07:41 97.5 F 114 H 16 130/62 97 06/30/24 07:01 111 H 22 95 06/30/24 04:00 97.0 F 104 H 22 148/70 94 L 06/29/24 23:37 97.0 F 111 H 22 136/59 93 L 06/29/24 20:00 97.3 F 121 H 24 141/81 98 06/29/24 18:59 112 H 22 94 L 06/29/24 16:00 97.8 F 102 H 17 151/75 100 06/29/24 15:09 88 18 96 06/29/24 11:53 112 H 06/29/24 11:46 95 06/29/24 11:43 108 H 28 H 95 Pain Assessment - Last Documented Pain Intensity 0 Intake and Output: Intake & Output 06/27/24 06/28/24 06/29/24 06/30/24 11:59 11:59 11:59 11:59 Intake Total 1720 Balance 1720 Weight 83.8 kg Lab Results: Lab Results-Last 24 Hours 06/29/24 06/29/24 06/30/24 Range/Units 11:56 16:00 04:45 WBC 7.7 (3.98-10.04) x10^3/uL RBC 3.76 L (3.93-5.22) x10^6/uL Hgb 10.7 L (11.2-15.7) g/dL Hct 34.7 (34.1-44.9) % MCV 92.3 (79.4-94.8) fL MCH 28.5 (25.6-32.2) pg MCHC 30.8 L (32.2-35.5) g/dL RDW 14.6 H (11.7-14.4) % Plt Count 199 (182-369) x10^3/uL MPV 10.3 (9.4-12.3) fL Sodium (135-145) mmol/L Potassium (3.5-5.1) mmol/L Chloride (98-107) mmol/L Carbon Dioxide (22-30) mmol/L Anion Gap (5-15) MEQ/L BUN (7-17) mg/dL Creatinine (0.52-1.04) mg/dL Estimated GFR ML/MIN Glucose (74-106) mg/dL Hemoglobin A1c (4.5-6.0) % Calcium (8.4-10.2) mg/dL Total Bilirubin (0.2-1.3) mg/dL AST (14-36) U/L ALT (0-35) U/L Alkaline Phosphatase (38-126) U/L Troponin I < 0.012 < 0.012 (0.000-0.033) ng/mL Serum Total Protein (6.3-8.2) g/dL Albumin (3.5-5.0) g/dL Stl Occult Blood (IFOB) (NEGATIVE) 06/30/24 06/30/24 06/30/24 Range/Units 04:45 05:10 10:22 WBC (3.98-10.04) x10^3/uL RBC (3.93-5.22) x10^6/uL Hgb (11.2-15.7) g/dL Hct (34.1-44.9) % MCV (79.4-94.8) fL MCH (25.6-32.2) pg MCHC (32.2-35.5) g/dL RDW (11.7-14.4) % Plt Count (182-369) x10^3/uL MPV (9.4-12.3) fL Sodium 137 (135-145) mmol/L Potassium 3.9 (3.5-5.1) mmol/L Chloride 105 (98-107) mmol/L Carbon Dioxide 26 (22-30) mmol/L Anion Gap 9.5 (5-15) MEQ/L BUN 35 H (7-17) mg/dL Creatinine 0.76 (0.52-1.04) mg/dL Estimated GFR 86.4 ML/MIN Glucose 178 H (74-106) mg/dL Hemoglobin A1c 5.75 (4.5-6.0) % Calcium 8.7 (8.4-10.2) mg/dL Total Bilirubin 0.30 (0.2-1.3) mg/dL AST 30 (14-36) U/L ALT 27 (0-35) U/L Alkaline Phosphatase 105 (38-126) U/L Troponin I (0.000-0.033) ng/mL Serum Total Protein 6.2 L (6.3-8.2) g/dL Albumin 3.6 (3.5-5.0) g/dL Stl Occult Blood (IFOB) POSITIVE A (NEGATIVE) Radiology Exams: Radiology Procedures Category Date Time Status CHEST 1 VIEW (PORTABLE) Stat Exams 06/29/24 07:35 Completed Assessment/Plan (1) COPD exacerbation Current Visit: Yes Status: Acute Code(s): J44.1 - CHRONIC OBSTRUCTIVE PULMONARY DISEASE W (ACUTE) EXACERBATION (2) Hypoxia Current Visit: Yes Status: Acute Code(s): R09.02 - HYPOXEMIA (3) Coronary artery disease Current Visit: No Status: Chronic Code(s): I25.10 - ATHSCL HEART DISEASE OF [place] CORONARY ARTERY W/O ANG PCTRS (4) Obesity (BMI 30-39.9) Current Visit: Yes Status: Chronic Code(s): E66.9 - OBESITY, UNSPECIFIED (5) Smoker Current Visit: Yes Status: Chronic Assessment & Plan: (1) COPD exacerbation Current Visit: Yes Status: Acute Assessment & Plan: - Duonebs, advair, steriods - start Levaquin d/t med allergies - Mucinex - CBC, CMP reviewed Code(s): J44.1 - CHRONIC OBSTRUCTIVE PULMONARY DISEASE W (ACUTE) EXACERBATION (2) Hypoxia Current Visit: Yes Status: Acute Assessment & Plan: - See above COPD plan - O2 2lNC 95%- baseline RA - CXR: Impression: Nonacute chest with chronic features. Code(s): R09.02 - HYPOXEMIA (3) Coronary artery disease Current Visit: No Status: Chronic Assessment & Plan: - Continue home meds - tele - heart healthy diet Code(s): I25.10 - ATHSCL HEART DISEASE OF [place] CORONARY ARTERY W/O ANG PCTRS (4) Obesity (BMI 30-39.9) Current Visit: Yes Status: Chronic Assessment & Plan: - advised heart healthy diet and exercise control per cardiology recs Code(s): E66.9 - OBESITY, UNSPECIFIED (5) Smoker Current Visit: Yes Status: Chronic Assessment & Plan: - advised cessation - nicotine patch Code(s): F17.200 - NICOTINE DEPENDENCE, UNSPECIFIED, UNCOMPLICATED Code(s): F17.200 - NICOTINE DEPENDENCE, UNSPECIFIED, UNCOMPLICATED (6) Hematemesis Current Visit: Yes Status: Acute Assessment & Plan: - protonix gtt started - NPO - Lovenox, ASA stopped - GS consult for ED colonoscopy - EGD planned for 4 pm today - Hgb 10.7 - stable - serial H&H Code(s): K92.0 - HEMATEMESIS (7) Hematochezia Current Visit: Yes Status: Acute Assessment & Plan: - protonix gtt started - NPO - Lovenox, ASA stopped - GS consult - serial H&H VTE: SCD PPI: protonix Next of KIN: Alyssa Doll [phone] D/C plan: 1-2 days Code status: Full Code(s): K92.1 - MELENA
[2024-06-30] MEDS ORDERED: HUMALOG SQ PRN (11:57)
[2024-06-30] MEDS: Ativan 2 MG/1 ML VIAL IV ONE (12:45)
[2024-06-30] MEDS: LEVOFLOXACIN 750MG/150ML D5W 750 MG/150 ML BAG IV SCH (13:27)
--- NOTE | 2024-06-30 13:34 | XRAY ---
Indication: Abdominal pain. GI bleed. Multiple contiguous axial images obtained through the abdomen and pelvis prior to and following 80 cc Isovue 370 contrast and using GI bleed protocol. Comparison: None Lung bases are clear. Heart not enlarged. Moderate size hiatal hernia with partial intrathoracic stomach. Minimal gastric radiopacities presumed ingested medication/bismuth. Stomach and noncontrasted bowel loops appear nonobstructed. 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 Appendectomy reported. No abnormal contrast extravasation or evidence for active GI bleed. No free fluid/air. Remaining liver, gallbladder, pancreas, spleen, adrenal glands, kidneys, ureters, bladder, and uterus are unremarkable. Moderate scattered aortoiliac calcifications. No AAA or pathologic retroperitoneal lymphadenopathy. Osseous structures intact with osteopenia, minimal degenerative changes throughout the spine, and mild degenerative changes both hips. Incidental large fatty right inguinal hernia. Impression: 1. Negative for active GI bleed. 2. Chronic findings including hiatal hernia with partial intrathoracic stomach, duodenal diverticulum, arteriosclerotic disease, fatty right inguinal hernia, and chronic bony findings. 3. Remaining CT abdomen/pelvis with and without contrast exam is negative.
[2024-06-30 15:16] LABS: Hematocrit 33.9 % (34.1-44.9); Hemoglobin 10.8 g/dL (11.2-15.7)
[2024-06-30] MEDS ORDERED: DIPRIVAN 200 MG/20 ML IV ONE (15:57)
[2024-06-30] MEDS ORDERED: FEVERALL 650 MG PR PRN (17:03)
[2024-06-30] MEDS ORDERED: TYLENOL 325 MG PO PRN (17:03)
[2024-06-30 19:14] LABS: Hematocrit 34.8 % (34.1-44.9); Hemoglobin 10.8 g/dL (11.2-15.7)
[2024-06-30 23:19] LABS: Hematocrit 30.5 % (34.1-44.9); Hemoglobin 9.6 g/dL (11.2-15.7)
[2024-07-01 05:38] LABS: Hemoglobin 9.2 g/dL (11.2-15.7); Mean Cell Volume 92.6 fL (79.4-94.8); Mean Corpuscular Hemoglobin 28.4 pg (25.6-32.2); Mean Corpuscular Hgb Concent. 30.7 g/dL (32.2-35.5); Mean Platelet Volume 10.2 fL (9.4-12.3); Platelet Count 230 x10^3/uL (182-369); Red Blood Count 3.24 x10^6/uL (3.93-5.22); Red Cell Distribution Width 15.2 % (11.7-14.4); White Blood Count 7.9 x10^3/uL (3.98-10.04)
[2024-07-01 06:07] LABS: ALBUMIN 3.3 g/dL (3.5-5.0); ANION GAP 6.9 MEQ/L (5-15); BILIRUBIN,TOTAL 0.2 mg/dL (0.2-1.3); Calcium 8.6 mg/dL (8.4-10.2); Creatinine 1 0.84 mg/dL (0.52-1.04); EST GLOMERULAR FILTRATION RATE 76.6 ML/MIN; Potassium 3.9 mmol/L (3.5-5.1); Total Protein 5.8 g/dL (6.3-8.2)
[2024-07-01 07:17] LABS: BAND 1 % (0.0-2.0); Lymphocytes 11 % (19.3-51.7); Monocyte 1 % (4.7-12.5); Neutrophils 87 % (34.0-71.1); Total Cells Counted 100
[2024-07-01 07:18] LABS: ANISOCYTOSIS 1+; Platelet Estimate NORMAL (NORMAL); Polychromasia RARE
[2024-07-01] MEDS: PROTONIX 40 MG IV IV SCH (10:12)
--- NOTE | 2024-07-01 11:23 | PCM.NOTE ---
Date and Time: 07/01/24 1116 Subjective Assessment: 06/29/24 is a 68 year old female with PMHX of COPD, asthma, daily smoker, [place], open heart surgery, and chronic obesity. She presented to our emergency department for evaluation of progressive shortness of breath that started for 5 days ago. Shortness of breath associated with a productive cough of yellow- brownish sputum. She tried increasing breathing treatments and this was not helpful as she had continued SOB and came to the ER. Upon arrival to our ED patient was hypoxic. Patient normally does not require home oxygen. However patient required oxygen upon arrival to our ED and now on 2lNC 95%. No associated chest pain or shortness of breath. No nausea vomiting or diaphoresis. Shortness of breath worse with exertion. Patient is a smoker however states she is currently trying to quit. Patient has not smoked in approximately 1 week. Patient otherwise feels well. No nausea no vomiting no diaphoresis. Patient reports that today symptoms are typical of her usual COPD exacerbations. Patient voices no other complaints or concerns at this time. 06/30/24 Pt up to the restroom and vomiting dark coffee ground emesis and having dark bloody stools. Occult stool +, GS consulted for EGD/ Colonoscopy. Lovenox and ASA held, pt made NPO. Protonix gtt started. Hgb stable at 10.7. Will order serial H&H. Pt continues to have SOB and wheezing. Continue IV antibiotics, steroids, and duonebs. She is c/O LLQ pain. She denies chest pain. 07/01/24 Pt resting in bed. She is feeling better today. She had an EGD yesterday and they were unable to find a source of bleeding. Colonoscopy to be done OP. Hgb 9.2 today. Protonix BID started and gtt stopped. Pt started on a clear liquid diet this morning and will advance as tolerated.Lungs sounds have improved but she is still requiring O@ at 2lNC 94%. She is baseline room air. She denies CP, SOB, abd. pain, N/V/D. - Review of Systems Constitutional: No Fever, No Chills Eyes: No Symptoms Ears, Nose, & Throat: No Symptoms Respiratory: No Cough, No Short Of Breath Cardiac: No Chest Pain, No Edema, No Syncope Abdominal/Gastrointestinal: No Abdominal Pain, No Nausea, No Vomiting, No Diarrhea Genitourinary Symptoms: No Dysuria Musculoskeletal: No Back Pain, No Neck Pain Skin: No Rash Neurological: No Dizziness, No Focal Weakness, No Sensory Changes Psychological: No Symptoms Endocrine: No Symptoms Hematologic/Lymphatic: No Symptoms Immunological/Allergic: No Symptoms Objective Exam General Appearance: no apparent distress, alert, obese Neurologic Exam: alert, oriented x 3, cooperative, normal mood/affect, nml cerebellar function, sensation nml, No motor deficits Skin Exam: normal color, warm, dry Eye Exam: PERRL, EOMI, eyes nml inspection Ears, Nose, Throat Exam: normal ENT inspection, pharynx normal, moist mucous membranes Neck Exam: normal inspection, non-tender, supple, full range of motion Respiratory Exam: normal breath sounds, lungs clear, No respiratory distress Cardiovascular Exam: regular rate/rhythm, normal heart sounds Gastrointestinal/Abdomen Exam: soft, No tenderness, No mass Extremity Exam: normal inspection, normal range of motion Back Exam: normal inspection, normal range of motion, No CVA tenderness, No vertebral tenderness Pelvic Exam: deferred Rectal Exam: deferred Objective Data Vital Signs: Vital Signs - 24 hr Temp Pulse Resp BP Pulse Ox 07/01/24 10:45 94 H 18 93 L 07/01/24 07:56 97.3 F 101 H 21 115/57 98 07/01/24 05:51 94 H 18 94 L 07/01/24 04:00 97.0 F 94 H 21 107/71 97 07/01/24 00:00 97.0 F 100 H 19 114/56 97 06/30/24 20:00 97.6 F 118 H 20 109/70 96 06/30/24 17:08 103 H 18 96 06/30/24 15:56 97.6 F 114 H 16 104/60 94 L 06/30/24 15:27 97.3 F 119 H 24 104/60 94 L 06/30/24 14:38 117 H 20 93 L 06/30/24 12:00 97.7 F 118 H 16 124/62 97 Pain Assessment - Last Documented Pain Intensity 0 Intake and Output: Intake & Output 06/28/24 06/29/24 06/30/24 07/01/24 11:59 11:59 11:59 11:59 Intake Total 1720 1378 Output Total 250 Balance 1720 1128 Weight 83.8 kg 83.8 kg Lab Results: Lab Results-Last 24 Hours 06/30/24 06/30/24 06/30/24 Range/Units 10:22 15:16 16:45 WBC (3.98-10.04) x10^3/uL RBC (3.93-5.22) x10^6/uL Hgb 10.8 L (11.2-15.7) g/dL Hct 33.9 L (34.1-44.9) % MCV (79.4-94.8) fL MCH (25.6-32.2) pg MCHC (32.2-35.5) g/dL RDW (11.7-14.4) % Plt Count (182-369) x10^3/uL MPV (9.4-12.3) fL Segmented Neutrophils (34.0-71.1) % Band Neutrophils (0.0-2.0) % Lymphocytes (Manual) (19.3-51.7) % Monocytes (Manual) (4.7-12.5) % Platelet Estimate (NORMAL) RBC Morphology Polychromasia Anisocytosis Sodium (135-145) mmol/L Potassium (3.5-5.1) mmol/L Chloride (98-107) mmol/L Carbon Dioxide (22-30) mmol/L Anion Gap (5-15) MEQ/L BUN (7-17) mg/dL Creatinine (0.52-1.04) mg/dL Estimated GFR ML/MIN Glucose (74-106) mg/dL POC Glucometer 133 H (74 to 106) mg/dL Calcium (8.4-10.2) mg/dL Total Bilirubin (0.2-1.3) mg/dL AST (14-36) U/L ALT (0-35) U/L Alkaline Phosphatase (38-126) U/L Serum Total Protein (6.3-8.2) g/dL Albumin (3.5-5.0) g/dL Stl Occult Blood (IFOB) POSITIVE A (NEGATIVE) 06/30/24 06/30/24 06/30/24 Range/Units 19:10 21:50 23:17 WBC (3.98-10.04) x10^3/uL RBC (3.93-5.22) x10^6/uL Hgb 10.8 L 9.6 L (11.2-15.7) g/dL Hct 34.8 30.5 L (34.1-44.9) % MCV (79.4-94.8) fL MCH (25.6-32.2) pg MCHC (32.2-35.5) g/dL RDW (11.7-14.4) % Plt Count (182-369) x10^3/uL MPV (9.4-12.3) fL Segmented Neutrophils (34.0-71.1) % Band Neutrophils (0.0-2.0) % Lymphocytes (Manual) (19.3-51.7) % Monocytes (Manual) (4.7-12.5) % Platelet Estimate (NORMAL) RBC Morphology Polychromasia Anisocytosis Sodium (135-145) mmol/L Potassium (3.5-5.1) mmol/L Chloride (98-107) mmol/L Carbon Dioxide (22-30) mmol/L Anion Gap (5-15) MEQ/L BUN (7-17) mg/dL Creatinine (0.52-1.04) mg/dL Estimated GFR ML/MIN Glucose (74-106) mg/dL POC Glucometer 117 H (74 to 106) mg/dL Calcium (8.4-10.2) mg/dL Total Bilirubin (0.2-1.3) mg/dL AST (14-36) U/L ALT (0-35) U/L Alkaline Phosphatase (38-126) U/L Serum Total Protein (6.3-8.2) g/dL Albumin (3.5-5.0) g/dL Stl Occult Blood (IFOB) (NEGATIVE) 07/01/24 07/01/24 07/01/24 Range/Units 05:32 05:32 07:47 WBC 7.9 (3.98-10.04) x10^3/uL RBC 3.24 L (3.93-5.22) x10^6/uL Hgb 9.2 L (11.2-15.7) g/dL Hct 30.0 L (34.1-44.9) % MCV 92.6 (79.4-94.8) fL MCH 28.4 (25.6-32.2) pg MCHC 30.7 L (32.2-35.5) g/dL RDW 15.2 H (11.7-14.4) % Plt Count 230 (182-369) x10^3/uL MPV 10.2 (9.4-12.3) fL Segmented Neutrophils 87 H (34.0-71.1) % Band Neutrophils 1 (0.0-2.0) % Lymphocytes (Manual) 11 L (19.3-51.7) % Monocytes (Manual) 1 L (4.7-12.5) % Platelet Estimate NORMAL (NORMAL) RBC Morphology ABNORMAL Polychromasia RARE Anisocytosis 1+ Sodium 137 (135-145) mmol/L Potassium 3.9 (3.5-5.1) mmol/L Chloride 107 (98-107) mmol/L Carbon Dioxide 27 (22-30) mmol/L Anion Gap 6.9 (5-15) MEQ/L BUN 35 H (7-17) mg/dL Creatinine 0.84 (0.52-1.04) mg/dL Estimated GFR 76.6 ML/MIN Glucose 150 H (74-106) mg/dL POC Glucometer 130 H (74 to 106) mg/dL Calcium 8.6 (8.4-10.2) mg/dL Total Bilirubin 0.20 (0.2-1.3) mg/dL AST 25 (14-36) U/L ALT 25 (0-35) U/L Alkaline Phosphatase 92 (38-126) U/L Serum Total Protein 5.8 L (6.3-8.2) g/dL Albumin 3.3 L (3.5-5.0) g/dL Stl Occult Blood (IFOB) (NEGATIVE) Radiology Exams: Radiology Procedures Category Date Time Status ABDOMEN AND PELVIS W&WO CONTRA [CT] Routine Exams 06/30/24 11:47 Completed Multi-Disciplinary Progress Notes: Multi-Disciplinary Progress Notes 06/30/24 14:00 (created 06/30/24 15:44) Case Management Note by Theresa Miner/W PATIENT- SHE CONTINUES TO DENY ANY NEW NEEDS AT TIME OF DC. SHE REPORTS SHE IS AMBULATING TO RESTROOM WITHOUT DIFFICULTY. SHE PLANS TO RETURN HOME TO HER PLF AT TIME OF DC Initialized on 06/30/24 15:44 - END OF NOTE Assessment/Plan (1) COPD exacerbation Current Visit: Yes Status: Acute Code(s): J44.1 - CHRONIC OBSTRUCTIVE PULMONARY DISEASE W (ACUTE) EXACERBATION (2) Hypoxia Current Visit: Yes Status: Acute Code(s): R09.02 - HYPOXEMIA (3) Coronary artery disease Current Visit: No Status: Chronic Code(s): I25.10 - ATHSCL HEART DISEASE OF [place] CORONARY ARTERY W/O ANG PCTRS (4) Obesity (BMI 30-39.9) Current Visit: Yes Status: Chronic Code(s): E66.9 - OBESITY, UNSPECIFIED (5) Smoker Current Visit: Yes Status: Chronic Code(s): F17.200 - NICOTINE DEPENDENCE, UNSPECIFIED, UNCOMPLICATED (6) Hematemesis Current Visit: Yes Status: Acute Code(s): K92.0 - HEMATEMESIS (7) Hematochezia Current Visit: Yes Status: Acute Assessment & Plan: (1) COPD exacerbation Current Visit: Yes Status: Acute Assessment & Plan: - Duonebs, advair, steroids - start Levaquin d/t med allergies - Mucinex - CBC, CMP reviewed 07/01 - wean O2 Code(s): J44.1 - CHRONIC OBSTRUCTIVE PULMONARY DISEASE W (ACUTE) EXACERBATION (2) Hypoxia Current Visit: Yes Status: Acute Assessment & Plan: - See above COPD plan - O2 2lNC 95%- baseline RA - CXR: Impression: Nonacute chest with chronic features. 07/01 - wean O2 Code(s): R09.02 - HYPOXEMIA (3) Coronary artery disease Current Visit: No Status: Chronic Assessment & Plan: - Continue home meds - tele - heart healthy diet Code(s): I25.10 - ATHSCL HEART DISEASE OF [place] CORONARY ARTERY W/O ANG PCTRS (4) Obesity (BMI 30-39.9) Current Visit: Yes Status: Chronic Assessment & Plan: - advised heart healthy diet and exercise control per cardiology recs Code(s): E66.9 - OBESITY, UNSPECIFIED (5) Smoker Current Visit: Yes Status: Chronic Assessment & Plan: - advised cessation - nicotine patch Code(s): F17.200 - NICOTINE DEPENDENCE, UNSPECIFIED, UNCOMPLICATED (6) Hematemesis Current Visit: Yes Status: Acute Assessment & Plan: - protonix gtt started - NPO - Lovenox, ASA stopped - GS consult for ED colonoscopy - EGD planned for 4 pm today - Hgb 10.7 - stable - serial H&H 07/01 - Hgb 9.2- stable - EGD 06/30- by GS- no active bleed found - Protonix BID started - advance diet as tolerated Code(s): K92.0 - HEMATEMESIS (7) Hematochezia Current Visit: Yes Status: Acute Assessment & Plan: - protonix gtt started - NPO - Lovenox, ASA stopped - GS consult - serial H&H 07/01 - Hgb 9.2- stable - EGD 06/30- by GS- no active bleed found - Protonix BID started - advance diet as tolerated VTE: SCD's PPI: protonix Next of KIN: Alyssafermin Doll [phone] D/C plan: tomorrow Code status: Full Code(s): K92.1 - MELENA Code(s): K92.1 - MELENA
--- NOTE | 2024-07-01 12:03 | CONS ---
HISTORY OF PRESENT ILLNESS: This is a 68-year-old female with a history of COPD on oxygen. She had a COPD exacerbation and today had massive amounts of hematemesis and black tarry stools. This is the first time it has happened for her. She denies history of this problem, GI bleeding. She denies taking blood thinners. She denies abdominal pain. She does not drink. Surgery was consulted after she was seen in the [facility] and resuscitated. She is stable. PAST MEDICAL HISTORY: As stated, COPD. She does not remember her last colonoscopy but she is overdue she says. She denies alcohol use or cirrhosis or taking blood thinner. LAB DATA AND TESTS: See EMR. PHYSICAL EXAMINATION: VITAL SIGNS: Stable. GENERAL: Alert and oriented. RESPIRATORY: On supplemental oxygen. Nonlabored breathing. CARDIOVASCULAR: Regular rate and rhythm. ABDOMEN: Soft, nontender, nondistended. ASSESSMENT: This is a 68-year-old female with hematemesis and some black tarry stools. PLAN: I reviewed her labs, imaging, and history. I believe EGD is indicated in this patient to evaluate for a source of upper GI bleed. We will monitor her afterwards in the hospital and further plans pending findings on the EGD. She may need an additional colonoscopy if she continues to have bleeding issues after she gets prepped. Keep n.p.o. Protonix recommended. Trend her hemoglobin daily. Resuscitate as needed. We will monitor her.
--- NOTE | 2024-07-01 14:50 | PCM.NOTE ---
Date and Time: 07/01/24 1448 Subjective Assessment: no c/o, in bed, greg regular diet, rn denies bloody stool, today, stable per gen surgery, will sign off, f/u outpatient for cassie Contreras NP General Surgery [facility] Objective Data Vital Signs: Vital Signs - 24 hr Temp Pulse Resp BP Pulse Ox 07/01/24 12:00 97.2 F 102 H 21 112/63 93 L 07/01/24 10:45 94 H 18 93 L 07/01/24 07:56 97.3 F 101 H 21 115/57 98 07/01/24 05:51 94 H 18 94 L 07/01/24 04:00 97.0 F 94 H 21 107/71 97 07/01/24 00:00 97.0 F 100 H 19 114/56 97 06/30/24 20:00 97.6 F 118 H 20 109/70 96 06/30/24 17:08 103 H 18 96 06/30/24 15:56 97.6 F 114 H 16 104/60 94 L 06/30/24 15:27 97.3 F 119 H 24 104/60 94 L Pain Assessment - Last Documented Pain Intensity 0 Intake and Output: Intake & Output 06/29/24 06/30/24 07/01/24 07/02/24 11:59 11:59 11:59 11:59 Intake Total 1720 1378 120 Output Total 250 Balance 1720 1128 120 Weight 83.8 kg 83.8 kg Lab Results: Lab Results-Last 24 Hours 06/30/24 06/30/24 06/30/24 Range/Units 15:16 16:45 19:10 WBC (3.98-10.04) x10^3/uL RBC (3.93-5.22) x10^6/uL Hgb 10.8 L 10.8 L (11.2-15.7) g/dL Hct 33.9 L 34.8 (34.1-44.9) % MCV (79.4-94.8) fL MCH (25.6-32.2) pg MCHC (32.2-35.5) g/dL RDW (11.7-14.4) % Plt Count (182-369) x10^3/uL MPV (9.4-12.3) fL Segmented Neutrophils (34.0-71.1) % Band Neutrophils (0.0-2.0) % Lymphocytes (Manual) (19.3-51.7) % Monocytes (Manual) (4.7-12.5) % Platelet Estimate (NORMAL) RBC Morphology Polychromasia Anisocytosis Sodium (135-145) mmol/L Potassium (3.5-5.1) mmol/L Chloride (98-107) mmol/L Carbon Dioxide (22-30) mmol/L Anion Gap (5-15) MEQ/L BUN (7-17) mg/dL Creatinine (0.52-1.04) mg/dL Estimated GFR ML/MIN Glucose (74-106) mg/dL POC Glucometer 133 H (74 to 106) mg/dL Calcium (8.4-10.2) mg/dL Total Bilirubin (0.2-1.3) mg/dL AST (14-36) U/L ALT (0-35) U/L Alkaline Phosphatase (38-126) U/L Serum Total Protein (6.3-8.2) g/dL Albumin (3.5-5.0) g/dL 06/30/24 06/30/24 07/01/24 Range/Units 21:50 23:17 05:32 WBC (3.98-10.04) x10^3/uL RBC (3.93-5.22) x10^6/uL Hgb 9.6 L (11.2-15.7) g/dL Hct 30.5 L (34.1-44.9) % MCV (79.4-94.8) fL MCH (25.6-32.2) pg MCHC (32.2-35.5) g/dL RDW (11.7-14.4) % Plt Count (182-369) x10^3/uL MPV (9.4-12.3) fL Segmented Neutrophils (34.0-71.1) % Band Neutrophils (0.0-2.0) % Lymphocytes (Manual) (19.3-51.7) % Monocytes (Manual) (4.7-12.5) % Platelet Estimate (NORMAL) RBC Morphology Polychromasia Anisocytosis Sodium 137 (135-145) mmol/L Potassium 3.9 (3.5-5.1) mmol/L Chloride 107 (98-107) mmol/L Carbon Dioxide 27 (22-30) mmol/L Anion Gap 6.9 (5-15) MEQ/L BUN 35 H (7-17) mg/dL Creatinine 0.84 (0.52-1.04) mg/dL Estimated GFR 76.6 ML/MIN Glucose 150 H (74-106) mg/dL POC Glucometer 117 H (74 to 106) mg/dL Calcium 8.6 (8.4-10.2) mg/dL Total Bilirubin 0.20 (0.2-1.3) mg/dL AST 25 (14-36) U/L ALT 25 (0-35) U/L Alkaline Phosphatase 92 (38-126) U/L Serum Total Protein 5.8 L (6.3-8.2) g/dL Albumin 3.3 L (3.5-5.0) g/dL 07/01/24 07/01/24 07/01/24 Range/Units 05:32 07:47 11:53 WBC 7.9 (3.98-10.04) x10^3/uL RBC 3.24 L (3.93-5.22) x10^6/uL Hgb 9.2 L (11.2-15.7) g/dL Hct 30.0 L (34.1-44.9) % MCV 92.6 (79.4-94.8) fL MCH 28.4 (25.6-32.2) pg MCHC 30.7 L (32.2-35.5) g/dL RDW 15.2 H (11.7-14.4) % Plt Count 230 (182-369) x10^3/uL MPV 10.2 (9.4-12.3) fL Segmented Neutrophils 87 H (34.0-71.1) % Band Neutrophils 1 (0.0-2.0) % Lymphocytes (Manual) 11 L (19.3-51.7) % Monocytes (Manual) 1 L (4.7-12.5) % Platelet Estimate NORMAL (NORMAL) RBC Morphology ABNORMAL Polychromasia RARE Anisocytosis 1+ Sodium (135-145) mmol/L Potassium (3.5-5.1) mmol/L Chloride (98-107) mmol/L Carbon Dioxide (22-30) mmol/L Anion Gap (5-15) MEQ/L BUN (7-17) mg/dL Creatinine (0.52-1.04) mg/dL Estimated GFR ML/MIN Glucose (74-106) mg/dL POC Glucometer 130 H 115 H (74 to 106) mg/dL Calcium (8.4-10.2) mg/dL Total Bilirubin (0.2-1.3) mg/dL AST (14-36) U/L ALT (0-35) U/L Alkaline Phosphatase (38-126) U/L Serum Total Protein (6.3-8.2) g/dL Albumin (3.5-5.0) g/dL Radiology Exams: Radiology Procedures Category Date Time Status ABDOMEN AND PELVIS W&WO CONTRA [CT] Routine Exams 06/30/24 11:47 Completed Multi-Disciplinary Progress Notes: Multi-Disciplinary Progress Notes 07/01/24 13:15 Case Management Note by Theresa Miner S/W PATIENT- SHE CONTINUES TO PLAN TO RETURN HOME TO HER PLF AT TIME OF DC. SHE DECLINES HHC. Initialized on 07/01/24 13:15 - END OF NOTE
[2024-07-02 05:05] LABS: Absolute Neutrophil Ct (ANC) 4.99 x10^3/uL (1.56-6.13); Basophil (Absolute #) 0 x10^3/uL (0.01-0.08); Eosinophil (Absolute #) 0 x10^3/uL (0.04-0.36); Hematocrit 28.2 % (34.1-44.9); Hemoglobin 8.6 g/dL (11.2-15.7); IMMATURE GRAN # 0.07 x10^3u/L (0.001-0.031); Lymphocyte (Absolute #) 1.68 x10^3/uL (1.18-3.74); Lymphocytes % 23.9 % (19.3-51.7); Mean Cell Volume 92.5 fL (79.4-94.8); Mean Corpuscular Hemoglobin 28.2 pg (25.6-32.2); Mean Corpuscular Hgb Concent. 30.5 g/dL (32.2-35.5); Mean Platelet Volume 10.2 fL (9.4-12.3); Monocyte (Absolute #) 0.29 x10^3/uL (0.24-0.86); Monocytes % 4.1 % (4.7-12.5); Platelet Count 212 x10^3/uL (182-369); Red Blood Count 3.05 x10^6/uL (3.93-5.22); Red Cell Distribution Width 15.2 % (11.7-14.4)
[2024-07-02 05:20] LABS: ALBUMIN 3.3 g/dL (3.5-5.0); ANION GAP 8.5 MEQ/L (5-15); BILIRUBIN,TOTAL 0.1 mg/dL (0.2-1.3); Calcium 8.5 mg/dL (8.4-10.2); Creatinine 1 0.87 mg/dL (0.52-1.04); EST GLOMERULAR FILTRATION RATE 73.4 ML/MIN; Total Protein 5.7 g/dL (6.3-8.2)
--- NOTE | 2024-07-02 10:01 | PCM.DS ---
Discharge Summary Date of Admission: 06/29/24 10:40 Date of Discharge: 07/02/24 Admitting Physician: TAY GONZALES MD Consults: Consults on Case 06/30/24 10:31 Consult Surgery ROUTINE Primary Care Provider: SETH FRANKLIN DO Allergies Allergies ampicillin [Ampicillin] Allergy (Verified 06/29/24 07:35) Penicillins Allergy (Verified 06/29/24 07:35) vitafusion D Allergy (Uncoded 06/29/24 07:35) Hospital Summary - Hospital Course Hospital Course: 06/29/24 is a 68 year old female with PMHX of COPD, asthma, daily smoker, NV, open heart surgery, and chronic obesity. She presented to our emergency department for evaluation of progressive shortness of breath that started for 5 days ago. Shortness of breath associated with a productive cough of yellow- brownish sputum. She tried increasing breathing treatments and this was not helpful as she had continued SOB and came to the ER. Upon arrival to our ED patient was hypoxic. Patient normally does not require home oxygen. However patient required oxygen upon arrival to our ED and now on 2lNC 95%. No associated chest pain or shortness of breath. No nausea vomiting or diaphoresis. Shortness of breath worse with exertion. Patient is a smoker however states she is currently trying to quit. Patient has not smoked in approximately 1 week. Patient otherwise feels well. No nausea no vomiting no diaphoresis. Patient reports that today symptoms are typical of her usual COPD exacerbations. Patient voices no other complaints or concerns at this time. 06/30/24 Pt up to the restroom and vomiting dark coffee ground emesis and having dark bloody stools. Occult stool +, GS consulted for EGD/ Colonoscopy. Lovenox and ASA held, pt made NPO. Protonix gtt started. Hgb stable at 10.7. Will order serial H&H. Pt continues to have SOB and wheezing. Continue IV antibiotics, steroids, and duonebs. She is c/O LLQ pain. She denies chest pain. 07/01/24 Pt resting in bed. She is feeling better today. She had an EGD yesterday and they were unable to find a source of bleeding. Colonoscopy to be done OP. Hgb 9.2 today. Protonix BID started and gtt stopped. Pt started on a clear liquid diet this morning and will advance as tolerated.Lungs sounds have improved but she is still requiring O2@ at 2lNC 94%. She is baseline room air. She denies CP, SOB, abd. pain, N/V/D. 07/02/24 Pt resting in bed. She did qualify for home O2 when walking per RT. Case management to set this up for home use. She remains on 2lNC 96%, drops into 80's when walking. She has not had any N/V/D for 2 days now. Hgb 8.6. Will d/c with Protonix BID. Discussed she will need OP labs to recheck HGB. OP f/U appointment made with surgery for colonoscopy. Pt states she originally had an appointment with Dr. Mendez for a colonoscopy and had to cancel due to weather. She denies any further concerns at this time. Lung sounds clear. She denies CP, SOB, abd. pain, N/V/D. - Vitals & Intake/Output Vital Signs: Vital Signs Temperature 97.9 F 07/02/24 07:44 Pulse Rate 90 07/02/24 07:44 Respiratory Rate 20 07/02/24 07:44 Blood Pressure 118/57 07/02/24 07:44 O2 Sat by Pulse Oximetry 95 07/02/24 07:44 Intake & Output: Intake & Output 06/29/24 06/30/24 07/01/24 07/02/24 11:59 11:59 11:59 11:59 Intake Total 1720 1378 660 Output Total 250 Balance 1720 1128 660 Weight 83.8 kg 83.8 kg - Lab Result Diagrams: 07/02/24 04:40 07/02/24 04:40 Lab Results-Last 24 Hrs: Lab Results-Last 24 Hours 07/01/24 07/01/24 07/01/24 Range/Units 11:53 16:52 22:09 WBC (3.98-10.04) x10^3/uL RBC (3.93-5.22) x10^6/uL Hgb (11.2-15.7) g/dL Hct (34.1-44.9) % MCV (79.4-94.8) fL MCH (25.6-32.2) pg MCHC (32.2-35.5) g/dL RDW (11.7-14.4) % Plt Count (182-369) x10^3/uL MPV (9.4-12.3) fL Gran % (34.0-71.1) % Immature Gran % (Auto) (0.001-0.429) % Nucleat RBC Rel Count (0.00-0.2) % Eos # (Auto) (0.04-0.36) x10^3/uL Immature Gran # (Auto) (0.001-0.031) x10^3u/L Absolute Lymphs (auto) (1.18-3.74) x10^3/uL Absolute Monos (auto) (0.24-0.86) x10^3/uL Absolute Nucleated RBC (0.00-0.012) x10^3u/L Lymphocytes % (19.3-51.7) % Monocytes % (4.7-12.5) % Eosinophils % (0.7-5.8) % Basophils % (0.1-1.2) % Absolute Granulocytes (1.56-6.13) x10^3/uL Basophils # (0.01-0.08) x10^3/uL Sodium (135-145) mmol/L Potassium (3.5-5.1) mmol/L Chloride (98-107) mmol/L Carbon Dioxide (22-30) mmol/L Anion Gap (5-15) MEQ/L BUN (7-17) mg/dL Creatinine (0.52-1.04) mg/dL Estimated GFR ML/MIN Glucose (74-106) mg/dL POC Glucometer 115 H 106 125 H (74 to 106) mg/dL Calcium (8.4-10.2) mg/dL Total Bilirubin (0.2-1.3) mg/dL AST (14-36) U/L ALT (0-35) U/L Alkaline Phosphatase (38-126) U/L Serum Total Protein (6.3-8.2) g/dL Albumin (3.5-5.0) g/dL 07/02/24 07/02/24 07/02/24 Range/Units 04:40 04:40 07:37 WBC 7.0 (3.98-10.04) x10^3/uL RBC 3.05 L (3.93-5.22) x10^6/uL Hgb 8.6 L (11.2-15.7) g/dL Hct 28.2 L (34.1-44.9) % MCV 92.5 (79.4-94.8) fL MCH 28.2 (25.6-32.2) pg MCHC 30.5 L (32.2-35.5) g/dL RDW 15.2 H (11.7-14.4) % Plt Count 212 (182-369) x10^3/uL MPV 10.2 (9.4-12.3) fL Gran % 71.0 (34.0-71.1) % Immature Gran % (Auto) 1.0 H (0.001-0.429) % Nucleat RBC Rel Count 0.0 (0.00-0.2) % Eos # (Auto) 0 L (0.04-0.36) x10^3/uL Immature Gran # (Auto) 0.07 H (0.001-0.031) x10^3u/L Absolute Lymphs (auto) 1.68 (1.18-3.74) x10^3/uL Absolute Monos (auto) 0.29 (0.24-0.86) x10^3/uL Absolute Nucleated RBC 0.00 (0.00-0.012) x10^3u/L Lymphocytes % 23.9 (19.3-51.7) % Monocytes % 4.1 L (4.7-12.5) % Eosinophils % 0.0 L (0.7-5.8) % Basophils % 0.0 L (0.1-1.2) % Absolute Granulocytes 4.99 (1.56-6.13) x10^3/uL Basophils # 0 L (0.01-0.08) x10^3/uL Sodium 137 (135-145) mmol/L Potassium 4.0 (3.5-5.1) mmol/L Chloride 106 (98-107) mmol/L Carbon Dioxide 27 (22-30) mmol/L Anion Gap 8.5 (5-15) MEQ/L BUN 29 H (7-17) mg/dL Creatinine 0.87 (0.52-1.04) mg/dL Estimated GFR 73.4 ML/MIN Glucose 142 H (74-106) mg/dL POC Glucometer 113 H (74 to 106) mg/dL Calcium 8.5 (8.4-10.2) mg/dL Total Bilirubin 0.10 L (0.2-1.3) mg/dL AST 23 (14-36) U/L ALT 23 (0-35) U/L Alkaline Phosphatase 83 (38-126) U/L Serum Total Protein 5.7 L (6.3-8.2) g/dL Albumin 3.3 L (3.5-5.0) g/dL Micro Results-Entire Visit: Microbiology 06/29/24 08:00 Blood Culture - Preliminary Blood 06/29/24 07:50 Blood Culture - Preliminary Blood Accuchecks Date 07/02/24 Date 07/01/24 Date 07/01/24 Time 07:44 Time 17:24 Time 12:04 - Radiology Exams Ordered Rad Exams-Entire Visit: Radiology Procedures Category Date Time Status ABDOMEN AND PELVIS W&WO CONTRA [CT] Routine Exams 06/30/24 11:47 Completed - Procedures and Test Procedures and Tests throughout Hospitalization: Therapy Orders & Screens 06/29/24 07:55 Respiratory Therapy Assessment ONCE Comment: 06/29/24 11:43 Oxygen NASAL CANNULA 2 lpm Comment: Diagnosis: COPD exacerbation, hypoxia 06/29/24 12:27 Sputum Specimen Obtain .as ordered Comment: Diagnosis: COPD exacerbation, hypoxia 06/29/24 12:38 Respiratory MDI BID Comment: Diagnosis: COPD exacerbation, hypoxia 07/01/24 07:55 RT Miscellaneous Order ROUTINE Comment: Physician Instructions: Reason For Exam: wean O2 keep > 92%- Baseline RA Diagnosis: COPD exacerbation, hypoxia Discharge Exam General Appearance: no apparent distress, alert, obese Neurologic Exam: alert, oriented x 3, cooperative, normal mood/affect, nml cerebellar function, sensation nml, No motor deficits Eye Exam: PERRL, EOMI, eyes nml inspection Ears, Nose, Throat Exam: normal ENT inspection, pharynx normal, moist mucous membranes Neck Exam: normal inspection, non-tender, supple, full range of motion Respiratory Exam: normal breath sounds, lungs clear, No respiratory distress Cardiovascular Exam: regular rate/rhythm, normal heart sounds Gastrointestinal/Abdomen Exam: soft, No tenderness, No mass Pelvic Exam: deferred Rectal Exam: deferred Back Exam: normal inspection, normal range of motion, No CVA tenderness, No vertebral tenderness Extremity Exam: normal inspection, normal range of motion Skin Exam: normal color, warm, dry Final Diagnosis/Problem List - Final Discharge Diagnosis/Problem (1) COPD exacerbation Current Visit: Yes Status: Acute Code(s): J44.1 - CHRONIC OBSTRUCTIVE PULMONARY DISEASE W (ACUTE) EXACERBATION (2) Hypoxia Current Visit: Yes Status: Acute Code(s): R09.02 - HYPOXEMIA (3) Coronary artery disease Current Visit: No Status: Chronic Code(s): I25.10 - ATHSCL HEART DISEASE OF [place] CORONARY ARTERY W/O ANG PCTRS (4) Obesity (BMI 30-39.9) Current Visit: Yes Status: Chronic Code(s): E66.9 - OBESITY, UNSPECIFIED (5) Smoker Current Visit: Yes Status: Chronic Code(s): F17.200 - NICOTINE DEPENDENCE, UNSPECIFIED, UNCOMPLICATED (6) Hematemesis Current Visit: Yes Status: Acute Code(s): K92.0 - HEMATEMESIS (7) Hematochezia Current Visit: Yes Status: Acute Assessment & Plan: (1) COPD exacerbation Current Visit: Yes Status: Acute Assessment & Plan: - Duonebs, advair, steroids - start Levaquin d/t med allergies - Mucinex - CBC, CMP reviewed 07/01 - wean O2 07/02 - qualified for home O2 2lNC per RT - Case management to set up - Continue Levaquin and steroids OP Code(s): J44.1 - CHRONIC OBSTRUCTIVE PULMONARY DISEASE W (ACUTE) EXACERBATION (2) Hypoxia Current Visit: Yes Status: Acute Assessment & Plan: - See above COPD plan - O2 2lNC 95%- baseline RA - CXR: Impression: Nonacute chest with chronic features. 07/01 - wean O2 07/02 - qualified for home O2 2lNC per RT - Case management to set up Code(s): R09.02 - HYPOXEMIA (3) Coronary artery disease Current Visit: No Status: Chronic Assessment & Plan: - Continue home meds - tele - heart healthy diet Code(s): I25.10 - ATHSCL HEART DISEASE OF [place] CORONARY ARTERY W/O ANG PCTRS (4) Obesity (BMI 30-39.9) Current Visit: Yes Status: Chronic Assessment & Plan: - advised heart healthy diet and exercise control per cardiology recs Code(s): E66.9 - OBESITY, UNSPECIFIED (5) Smoker Current Visit: Yes Status: Chronic Assessment & Plan: - advised cessation - nicotine patch - advised not to smoke with home O2 Code(s): F17.200 - NICOTINE DEPENDENCE, UNSPECIFIED, UNCOMPLICATED (6) Hematemesis Current Visit: Yes Status: Acute Assessment & Plan: - protonix gtt started - NPO - Lovenox, ASA stopped - GS consult for ED colonoscopy - EGD planned for 4 pm today - Hgb 10.7 - stable - serial H&H 07/01 - Hgb 9.2- stable - EGD 06/30- by GS- no active bleed found - Protonix BID started - advance diet as tolerated 07/02 - Hg 8.6- will need OP lab f/U - No further hematemesis - Continue protonix OP BID Code(s): K92.0 - HEMATEMESIS (7) Hematochezia Current Visit: Yes Status: Acute Assessment & Plan: - protonix gtt started - NPO - Lovenox, ASA stopped - GS consult - serial H&H 07/01 - Hgb 9.2- stable - EGD 06/30- by GS- no active bleed found - Protonix BID started - advance diet as tolerated 07/02 - resolved - OP f/u for colonoscopy with GS made Code(s): K92.1 - MELENA - Discharge Discharge Date: 07/02/24 Disposition: Home, Self-Care Condition: Stable Prescriptions: New Pantoprazole 20 mg [Protonix 20MG Tablet] 20 mg PO BID 30 Days #60 tab Continue Ibuprofen 200 mg [Motrin 200 mg] 800 mg PO BIDPRN PRN PRN Reason: Pain Losartan Potassium 50 mg PO DAILY Carvedilol [Coreg ] 6.25 mg PO BID Nitroglycerin 0.4 mg SL Q5MIN PRN MR X 3 PRN PRN Reason: Chest Pain Atorvastatin Calcium 40 mg PO HS PARoxetine HCL [Paroxetine HCl] 40 mg PO DAILY PRN PRN PRN Reason: Anxiety Furosemide [Lasix] 20 mg PO DAILY Montelukast Sodium 10 mg [Singulair 10 MG] 10 mg PO DAILY Albuterol/Ipratropium 3ml Neb* [DUONEB 0.5-3 MG/3 ml Neb] 1 neb IH QID #1 Guaifenesin 600 mg ER [Mucinex 600MG ER Tabs] 600 mg PO BID #14 tablet Potassium Chloride [Klor-Con M20] 20 meq PO DAILY Fluticasone Propionate 50 mcg IH DAILY Cyclobenzaprine HCl 10 mg [Cyclobenzaprine 10 MG] 10 mg PO HS Aspirin EC 81 mg [Ecotrin 81 mg] 81 mg PO DAILY Albuterol Sulfate [Albuterol Sulfate Hfa] 2 puff IH UD Discontinued Omeprazole 20 mg PO DAILY Additional Instructions: Do not smoke with Oxygen. Follow up with: SETH FRANKLIN DO [Primary Care Provider] - 07/05/24 11:00 am VENKATA PÉREZ MD [ACTIVE STAFF] - 07/08/24 10:30 am ([facility])
--- NOTE | 2024-07-02 10:49 | PCM.DCORD ---
- Discharge Disposition: Home, Self-Care Condition: Stable Prescriptions: New Pantoprazole 20 mg [Protonix 20MG Tablet] 20 mg PO BID 30 Days #60 tab Prednisone 20 mg [Deltasone 20 mg] 20 mg PO BID 5 Days #10 tablet levoFLOXacin [Levofloxacin] 750 mg PO DAILY 5 Days #5 tablet Continue Ibuprofen 200 mg [Motrin 200 mg] 800 mg PO BIDPRN PRN PRN Reason: Pain Losartan Potassium 50 mg PO DAILY Carvedilol [Coreg ] 6.25 mg PO BID Nitroglycerin 0.4 mg SL Q5MIN PRN MR X 3 PRN PRN Reason: Chest Pain Atorvastatin Calcium 40 mg PO HS PARoxetine HCL [Paroxetine HCl] 40 mg PO DAILY PRN PRN PRN Reason: Anxiety Furosemide [Lasix] 20 mg PO DAILY Montelukast Sodium 10 mg [Singulair 10 MG] 10 mg PO DAILY Albuterol/Ipratropium 3ml Neb* [DUONEB 0.5-3 MG/3 ml Neb] 1 neb IH QID #1 Guaifenesin 600 mg ER [Mucinex 600MG ER Tabs] 600 mg PO BID #14 tablet Potassium Chloride [Klor-Con M20] 20 meq PO DAILY Fluticasone Propionate 50 mcg IH DAILY Cyclobenzaprine HCl 10 mg [Cyclobenzaprine 10 MG] 10 mg PO HS Aspirin EC 81 mg [Ecotrin 81 mg] 81 mg PO DAILY Albuterol Sulfate [Albuterol Sulfate Hfa] 2 puff IH UD Discontinued Omeprazole 20 mg PO DAILY Instructions: Oxygen therapy at home Additional Instructions: Do not smoke with Oxygen. WEAR 2L/NC AT ALL TIMES, PLEASE CALL [facility] [place] AT [phone] WHEN YOU GET HOME SO THEY CAN DELIVER YOUR HOME CONCENTRATOR Follow up with: SETH FRANKLIN DO [Primary Care Provider] - 07/05/24 11:00 am VENKATA PÉREZ MD [ACTIVE STAFF] - 07/08/24 10:30 am ([facility])
[2024-07-02 11:54] VITALS: BP 142/67; TEMP 97.8; O2SAT 94
--- NOTE | 2024-07-02 12:00 | OP ---
SURGERY DATE/TIME: 06/30/2024 [id number] PREOPERATIVE DIAGNOSIS: Hematemesis. POSTOPERATIVE DIAGNOSIS: Gastritis with hiatal hernia and old blood in the stomach but no active source of bleeding identified. PROCEDURE: Esophagogastroduodenoscopy. SURGEON: Mateo Sawyer DO DESCRIPTION OF PROCEDURE AND FINDINGS: The patient was brought to endoscopy in stable condition, kept on a stretcher and turned to the left side. A time-out was called after she was induced by the anesthesia department and monitored for the duration of the procedure by them as well. I passed a flexible endoscope down the oropharynx into the esophagus, stomach, advanced it to duodenum and pictures were taken as I slowly withdrew. There was old black blood in the stomach and duodenum. I washed all this off carefully and evaluated mucosa starting at the duodenum. I did not see any ulcers, masses, lesions. I washed off all the old blood and slowly withdrew the scope into the stomach. The prepyloric area did have some evidence of gastritis but once again no ulcers and no active source of bleeding. Retroflexion on the stomach did show a hiatal hernia, not too big but was probably the fundus brought up into the chest but did not see any masses on retroflexion, ulcers by the cardia of the stomach or any of the fundus. I inspected the stomach and the hiatal hernia itself. No Jese ulcers identified. Once again, no bleeding was noted anywhere. I pulled the scope back with the esophagus. It looked fine. I withdrew the scope entirely. Terminated the procedure, which she tolerated very well without any evidence of complication. She will be going back to medical surgical unit to be monitored for further bleeding issues.
[2024-07-02 14:56] VITALS: PULSE 97; RESP 18
== END 2024-07-02 15:40 | disposition home or self-care (01) ==
LOC: ED 07:30 → MED SURG 10:40
PROVIDERS: ADMIT Internal Medicine; ATTEND Internal Medicine
DX: J44.1 Chronic obstructive pulmonary disease with (acute) exacerbation (principal); R09.02 Hypoxemia; I25.10 Atherosclerotic heart disease of native coronary artery without angina pectoris; E66.9 Obesity, unspecified; F17.200 Nicotine dependence, unspecified, uncomplicated; K92.0 Hematemesis; K92.1 Melena; Z79.899 Other long term (current) drug therapy; I25.2 Old myocardial infarction; K29.70 Gastritis, unspecified, without bleeding; K44.9 Diaphragmatic hernia without obstruction or gangrene
CPT/HCPCS: 0241U; 36415; 43235; 71045; 74178; 80053; 82947; 83036; 83605; 83880; 84484; 85014; 85018; 85025; 85027; 87040; 93005; 93041; 94640; 94760; 94762; 96365; 96374; 99285; G0328; Q3014; 82274; 93268; 99140; G0378; J0696; J1956; J2060; J2405; J2704; J2919; A9270-GY

== ENCOUNTER 2024-08-05 10:12 | Day surgery (SDC) | payer MEDICARE, OTHER ==
[2024-08-05] MEDS ORDERED: Lactated Ringers 1,000 ML IV ONE (10:48)
[2024-08-05] MEDS: Lactated Ringers 1,000 ML IV SCH (10:51)
[2024-08-05 11:17] LABS: ANION GAP 7.6 MEQ/L (5-15); Calcium 8.8 mg/dL (8.4-10.2); Creatinine 1 0.78 mg/dL (0.52-1.04); EST GLOMERULAR FILTRATION RATE 83.7 ML/MIN; Potassium 3.8 mmol/L (3.5-5.1)
[2024-08-05] MEDS ORDERED: Versed 2 MG/2 ML Injection ONE (11:41)
[2024-08-05] MEDS ORDERED: propofoL IV ONE (11:41)
[2024-08-05 12:14] VITALS: RESP 16
[2024-08-05 12:22] VITALS: PULSE 91; O2SAT 99
[2024-08-05 12:33] VITALS: BP 130/76; TEMP 97.7
--- NOTE | 2024-08-06 14:43 | OP ---
SURGERY DATE/TIME: 08/05/2024 [id number] PREOPERATIVE DIAGNOSES: 1) Melena. 2) History of colon polyps. POSTOPERATIVE DIAGNOSES: 1) Mild gastritis. 2) Moderate hiatal hernia. 3) Sigmoid colon polyp. 4) Diverticulosis. PROCEDURES PERFORMED: 1) Esophagogastroduodenoscopy with biopsy. 2) Colonoscopy with polypectomy. SURGEON: Marcelo Felipe MD. ANESTHESIA: IV anesthesia. CONDITION: Stable. COMPLICATIONS: None. SPECIMENS: Antrum for H pylori, GE junction and sigmoid colon polyp 2 mm. INDICATION: The patient is a 68-year-old female who had a recent hospitalization with melena, favored gastritis as a source. She is on a PPI daily now and discussion was had with the patient. She also has a history of colon polyps. She wants to proceed with EGD and colonoscopy. FINDINGS: Minimal gastritis of antrum, biopsies taken for H pylori, moderate-sized hiatal hernia with a slightly irregular GE junction Z-line, biopsies taken there; 2 mm hyperplastic-appearing sigmoid polyp. Good preparation. DESCRIPTION OF PROCEDURE AND FINDINGS: Patient was brought to the endoscopy suite. Routinely positioned and prepared. Time-out performed. IV anesthesia induced by Anesthesia. The gastroscope was inserted through the mouth, advanced to the third portion of the duodenum. Duodenum was normal in appearance. The stomach just with minimal erythema at the antrum. Biopsy taken for H pylori. Retroflexion showed a moderate-sized hiatal hernia at least 4 cm. There was no apparent source for GI bleed. The Z-line is slightly irregular, 36 cm from the teeth. The biopsy was taken of the Z-line. Stomach was suctioned out. Scope was withdrawn. The external examination shows some skin tags, maybe a condyloma at one area but it was soft. The scope was inserted, advanced to the cecum, confirmed by the appendiceal orifice and the ileocecal valve. The preparation was an Aronchick good preparation. Greater than 6-minute withdrawal time on withdrawal. There was a 2 mm hyperplastic-appearing polyp at the sigmoid colon removed with cold forceps. There was moderate diverticulosis to the sigmoid colon. Retroflexion normal. Patient tolerated the procedure well. RECOMMENDATIONS: Continue daily PPI. Follow up within 2 to 4 weeks in the office for pathology results and likely would be a 5-year colonoscopy depending on pathology results.
== END 2024-08-05 12:48 | disposition home or self-care (01) ==
LOC: SDC 10:12
PROVIDERS: ATTEND Surgery
DX: Z09 Encounter for follow-up examination after completed treatment for conditions other than malignant neoplasm (principal); Z86.0100 Personal history of colon polyps, unspecified; K92.1 Melena; K29.70 Gastritis, unspecified, without bleeding; K44.9 Diaphragmatic hernia without obstruction or gangrene; K63.5 Polyp of colon; K57.30 Diverticulosis of large intestine without perforation or abscess without bleeding; K64.4 Residual hemorrhoidal skin tags
CPT/HCPCS: 36415; 80048; 93005; J2250; J2704

== ENCOUNTER 2025-03-27 13:27 | Observation (INO) | payer MEDICARE, OTHER ==
--- NOTE | 2025-03-27 13:30 | ERPHSYRPT ---
- History of Present Illness Time Seen by Provider: 03/27/25 13:30 Source: patient Exam Limitations: no limitations Physician History: Patient presents to the emergency room with worsening shortness of breath since Friday. She ran out of her Breztri at that time. She reports cough and intermittent fevers. She has a history of COPD and wears 2 L of oxygen at home at all times. She had increased her oxygen to 3 L today. She was placed on 3 L nasal cannula on arrival she was satting roughly around 93%. She denies chest pain. No lower extremity swelling. She recently saw her glass cleaning machine tender and noted that everything cardiac looked okay at this time. She does have a history of a leaking valve but was unsure what valve. Timing/Duration: day(s) (5) Activities at Onset: rest Severity of Dyspnea-Max: severe Severity of Dyspnea-Current: severe Possible Cause: frequent episodes Modifying Factors: Improves With: albuterol nebulizer, oxygen. Worsens With: exertion, lying down Associated Symptoms: constant, cough, fever, wheezing, No chest pain/discomfort, No edema, No productive cough Allergies/Adverse Reactions: ampicillin [Ampicillin] Allergy (Verified 03/27/25 13:29) Penicillins Allergy (Verified 03/27/25 13:29) vitafusion D Allergy (Uncoded 03/27/25 13:29) Home Medications: Atorvastatin Calcium 40 mg PO HS 12/02/22 [History] Carvedilol [Coreg ] 6.25 mg PO BID 12/02/22 [History] Furosemide [Lasix] 20 mg PO DAILY 12/02/22 [History] Losartan Potassium 50 mg PO DAILY 12/02/22 [History] Montelukast Sodium 10 mg [Singulair 10 MG] 10 mg PO DAILY 12/02/22 [History] Nitroglycerin 0.4 mg SL Q5MIN PRN MR X 3 PRN 12/02/22 [History] PARoxetine HCL [Paroxetine HCl] 40 mg PO DAILY PRN PRN 12/02/22 [History] Albuterol Sulfate [Albuterol Sulfate Hfa] 2 puff IH BID PRN 05/05/24 [History] Aspirin EC 81 mg [Ecotrin 81 mg] 81 mg PO DAILY 05/05/24 [History] Fluticasone Propionate 50 mcg INTRANASAL DAILY 05/05/24 [History] Potassium Chloride [Klor-Con M20] 20 meq PO DAILY 05/05/24 [History] Budesonide/Glycopyr/Formoterol [Breztri Aerosphere Inhaler] 1 puff IH TID 03/27/25 [History] Ferrous Sulfate 1 ea PO UD 03/27/25 [History] Omeprazole 20 mg PO DAILY 03/27/25 [History] Hx Tetanus, Diphtheria Vaccination/Date Given: Yes Hx Influenza Vaccination/Date Given: No Hx Pneumococcal Vaccination/Date Given: No Travel Risk - Emerging Infectious Disease Are you exhibiting symptoms associated with any current EIDs: No - Review of Systems All Other Systems: Reviewed and Negative - Past Medical History Pertinent Past Medical History: Yes Neurological History: No Pertinent History ENT History: No Pertinent History Cardiac History: Myocardial Infarction ([place]) Respiratory History: Asthma, COPD Endocrine Medical History: No Pertinent History Musculoskeletal History: No Pertinent History GI Medical History: No Pertinent History History: No Pertinent History Psycho-Social History: Depression Female Reproductive Disorders: No Pertinent History - Past Surgical History Past Surgical History: Yes Neuro Surgical History: No Pertinent History Cardiac: Other Respiratory: No Pertinent History Gastrointestinal: Appendectomy Genitourinary: No Pertinent History Musculoskeletal: No Pertinent History Female Surgical History: Tubal Ligation Other Surgical History: open heart- remove growth from heart- 2014, Repair of mitral valve, repair left ventericular anueusysm, mass removal from heart.quit smoking may 2024 - Social History Drug Use: marijuana - Social Determinants of Health Will the patient participate in the screening: Yes Do you worry about a steady place to live?: No In the past 12 months,have you had to go without utilities?: No Transportation Issues: No Has anyone in your support network made you feel unsafe?: No Have you or anyone in your house had to go w/o enough food: No - Nursing Vital Signs Nursing Vital Signs: Initial Vital Signs Pulse Rate 89 03/27/25 13:30 Respiratory Rate 29 H 03/27/25 13:30 Blood Pressure 139/111 03/27/25 13:30 O2 Sat by Pulse Oximetry 95 03/27/25 13:30 Pain Scale Pain Intensity 0 - Physical Exam General Appearance: mild distress Ears, Nose, Throat Exam: hearing grossly normal, normal ENT inspection, normal pharynx Respiratory Exam: respiratory distress, airway intact, prolonged expirations, wheezing Cardiovascular/Chest Exam: regular rate/rhythm, murmur Neurologic Exam: alert, oriented x 3, cooperative SpO2 Interpretation: borderline oxygenation O2 Delivery: Nasal Cannula - Course Nursing assessment & vital signs reviewed: Yes EKG Interpreted by Me: RATE (90), Sinus Rhythm, NORMAL AXIS, NORMAL INTERVALS, NORMAL QRS, Non-specific ST Changes Ordered Tests: Active Orders 24 hr Category Date Time Status Tile Edger STAT Care 03/27/25 13:39 Completed EKG-ER Only STAT Care 03/27/25 13:37 Completed IV Insertion STAT Care 03/27/25 13:37 Completed House Regular Diet Diet 03/27/25 Dinner Active CHEST 1 VIEW (PORTABLE) Stat Exams 03/27/25 13:56 Taken CHEST WITH CONTRAST [CT] Stat Exams 03/27/25 15:38 Completed BLOOD CULTURE Stat Lab 03/27/25 14:00 Received CBC W DIFF Stat Lab 03/27/25 13:37 Completed CMP Stat Lab 03/27/25 13:50 Completed D-DIMER QUANTITATIVE Stat Lab 03/27/25 13:50 Completed Lactic Acid Stat Lab 03/27/25 13:37 Completed MAGNESIUM Stat Lab 03/27/25 13:50 Completed NT PRO BNPII Stat Lab 03/27/25 13:50 Completed TROPONIN Q2H Lab 03/27/25 13:50 Completed TROPONIN Q2H Lab 03/27/25 15:45 Completed VENOUS BLOOD GAS Stat Lab 03/27/25 13:39 Completed Medication Summary Generic Name Dose Route Start Last Admin Trade Name Freq PRN Reason Stop Dose Admin Albuterol/Ipratropium 3 ml 03/27/25 18:00 Ipratropium/Albuterol Sulfate 3 Ml Ampul.Neb 04/26/25 17:59 Q4HPRN PRN SHORTNESS OF BREATH/WHEEZING Methylprednisolone Sodium 0 mg 03/27/25 22:00 Succinate 40 mg/ Sterile Water IV 04/26/25 21:59 1 ml Q8HT LORELEI Lactobacillus Acidophilus 1 tab 03/28/25 10:00 Lactobacillus Acidophilus 1 Tab Tablet PO 04/27/25 09:59 DAILY LORELEI Fluticasone/Salmeterol 2 puff 03/27/25 19:00 Fluticasone/Salmeterol 115/21 60 Puff Aer.W.Adap 04/26/25 18:59 BIDRT LORELEI Discontinued Medications Generic Name Dose Route Start Last Admin Trade Name Emmanuelle PRN Reason Stop Dose Admin Albuterol Sulfate 2.5 mg 03/27/25 19:00 Albuterol Sulfate 2.5 Mg/3 Ml Neb 04/26/25 18:59 TIDRT LORELEI Albuterol/Ipratropium 3 ml 03/27/25 13:37 03/27/25 14:03 Ipratropium/Albuterol Sulfate 3 Ml Ampul.Neb 03/27/25 13:38 3 ml STAT ONE Administration Albuterol/Ipratropium Confirm 03/27/25 13:54 Ipratropium/Albuterol Sulfate 3 Ml Ampul.Neb Administered 03/27/25 13:55 Dose 3 ml IH .STK-MED ONE Azithromycin Confirm 03/27/25 14:23 Azithromycin Inj Administered 03/27/25 14:24 Dose 500 mg IV .STK-MED ONE Methylprednisolone Sodium 0 mg 03/27/25 13:37 03/27/25 13:54 Succinate 125 mg/ Sterile IV 03/27/25 13:38 125 mg Water 2 ml STAT ONE Administration Sodium Chloride 1,000 mls @ 999 mls/hr 03/27/25 13:37 03/27/25 15:00 Sodium Chloride 0.9% 1000 Ml IV 03/27/25 14:37 Infused .Q1H1M STA Infusion Azithromycin 500 mg/ Sodium 250 mls @ 250 mls/hr 03/27/25 13:37 03/27/25 15:47 Chloride IV 03/27/25 14:36 Infused STAT STA Infusion Ceftriaxone Sodium 1 gm in 100 mls @ 200 mls/hr 03/27/25 13:37 03/27/25 14:38 Rocephin 1 Gm / 100 Ml Nacl IV 03/27/25 14:06 Infused STAT ONE Infusion Sodium Chloride Confirm 03/27/25 13:48 Sodium Chloride 0.9% 1000 Ml Administered 03/27/25 13:49 Dose 1,000 mls @ ud .ROUTE .STK-MED ONE Ceftriaxone Sodium Confirm 03/27/25 13:48 Rocephin 1 Gm / 100 Ml Nacl Administered 03/27/25 13:49 Dose 1 gm in 100 mls @ ud IV .STK-MED ONE Sodium Chloride Confirm 03/27/25 14:24 Sodium Chloride 0.9% 250 Ml Administered 03/27/25 14:25 Dose 250 mls @ ud IV .STK-MED ONE Lorazepam 1 mg 03/27/25 14:44 03/27/25 14:51 Lorazepam 2 Mg/1 Ml 2 Mg Vial IM 03/27/25 14:45 1 mg STAT ONE Administration Methylprednisolone Sodium Succinate Confirm 03/27/25 13:48 Methylprednis Sod Succ 125 Mg/2 Ml Vial Administered 03/27/25 13:49 Dose 125 mg .ROUTE .STK-MED ONE Sterile Water Confirm 03/27/25 13:48 Water For Injection,Sterile 10 Ml Vial Administered 03/27/25 13:49 Dose 10 ml IJ .STK-MED ONE Tiotropium Prospect 1 ea 03/28/25 10:00 Tiotropium Prospect 18 Mcg/Cap Inhaler IH 04/27/25 09:59 DAILY LORELEI Lab/Rad Data: Laboratory Result Diagrams 03/27/25 13:37 03/27/25 13:50 Laboratory Results 03/27/25 03/27/25 03/27/25 Range/Units 15:45 14:01 13:50 WBC (3.98-10.04) x10^3/uL RBC (3.93-5.22) x10^6/uL Hgb (11.2-15.7) g/dL Hct (34.1-44.9) % MCV (79.4-94.8) fL MCH (25.6-32.2) pg MCHC (32.2-35.5) g/dL RDW (11.7-14.4) % Plt Count (182-369) x10^3/uL MPV (9.4-12.3) fL Gran % (34.0-71.1) % Immature Gran % (Auto) (0.001-0.429) % Nucleat RBC Rel Count (0.00-0.2) % Eos # (Auto) (0.04-0.36) x10^3/uL Immature Gran # (Auto) (0.001-0.031) x10^3u/L Absolute Lymphs (auto) (1.18-3.74) x10^3/uL Absolute Monos (auto) (0.24-0.86) x10^3/uL Absolute Nucleated RBC (0.00-0.012) x10^3u/L Lymphocytes % (19.3-51.7) % Monocytes % (4.7-12.5) % Eosinophils % (0.7-5.8) % Basophils % (0.1-1.2) % Absolute Granulocytes (1.56-6.13) x10^3/uL Basophils # (0.01-0.08) x10^3/uL D-Dimer (0.0-0.50) mg/L pO2/FiO2 Ratio % VBG pH (7.32-7.42) VBG pCO2 at Pat Temp (42-55) mm/Hg VBG pO2 at Pat Temp (25-40) mm/Hg VBG HCO3 (22-28) meq/L VBG O2 Sat (Tato) (95-100) VBG Base Excess (-2.0-2.0) VBG Hemoglobin VBG Carboxyhemoglobin (0.0-6.9) % T HGB POC Potassium (3.5-5.1) Sodium (135-145) mmol/L Potassium (3.5-5.1) mmol/L Chloride (98-107) mmol/L Carbon Dioxide (22-30) mmol/L Anion Gap (5-15) MEQ/L BUN (7-17) mg/dL Creatinine (0.52-1.04) mg/dL Estimated GFR ML/MIN Glucose (74-106) mg/dL Lactic Acid (0.4-2.0) Calcium (8.4-10.2) mg/dL Magnesium (1.6-2.3) mg/dL Total Bilirubin (0.2-1.3) mg/dL AST (14-36) U/L ALT (0-35) U/L Alkaline Phosphatase (38-126) U/L Troponin I < 0.012 < 0.012 (0.000-0.033) ng/mL NT-Pro-B Natriuret Pep (<300) pg/mL Serum Total Protein (6.3-8.2) g/dL Albumin (3.5-5.0) g/dL Influenza Type A Ag NEGATIVE (NEGATIVE) Influenza Type B Ag NEGATIVE (NEGATIVE) RSV (PCR) NEGATIVE (NEGATIVE) SARS-CoV-2 (PCR) NEGATIVE (NEGATIVE) 03/27/25 03/27/25 03/27/25 Range/Units 13:50 13:50 13:39 WBC (3.98-10.04) x10^3/uL RBC (3.93-5.22) x10^6/uL Hgb (11.2-15.7) g/dL Hct (34.1-44.9) % MCV (79.4-94.8) fL MCH (25.6-32.2) pg MCHC (32.2-35.5) g/dL RDW (11.7-14.4) % Plt Count (182-369) x10^3/uL MPV (9.4-12.3) fL Gran % (34.0-71.1) % Immature Gran % (Auto) (0.001-0.429) % Nucleat RBC Rel Count (0.00-0.2) % Eos # (Auto) (0.04-0.36) x10^3/uL Immature Gran # (Auto) (0.001-0.031) x10^3u/L Absolute Lymphs (auto) (1.18-3.74) x10^3/uL Absolute Monos (auto) (0.24-0.86) x10^3/uL Absolute Nucleated RBC (0.00-0.012) x10^3u/L Lymphocytes % (19.3-51.7) % Monocytes % (4.7-12.5) % Eosinophils % (0.7-5.8) % Basophils % (0.1-1.2) % Absolute Granulocytes (1.56-6.13) x10^3/uL Basophils # (0.01-0.08) x10^3/uL D-Dimer 0.71 H* (0.0-0.50) mg/L pO2/FiO2 Ratio 21.0 % VBG pH 7.48 H (7.32-7.42) VBG pCO2 at Pat Temp 42 (42-55) mm/Hg VBG pO2 at Pat Temp 66 H (25-40) mm/Hg VBG HCO3 31.3 H* (22-28) meq/L VBG O2 Sat (Tato) 95.0 (95-100) VBG Base Excess 7.0 H (-2.0-2.0) VBG Hemoglobin 14.2 VBG Carboxyhemoglobin 5.3 (0.0-6.9) % T HGB POC Potassium 4.5 (3.5-5.1) Sodium 142 (135-145) mmol/L Potassium 4.2 (3.5-5.1) mmol/L Chloride 104 (98-107) mmol/L Carbon Dioxide 30 (22-30) mmol/L Anion Gap 11.9 (5-15) MEQ/L BUN 18 H (7-17) mg/dL Creatinine 0.80 (0.52-1.04) mg/dL Estimated GFR 80.7 ML/MIN Glucose 104 (74-106) mg/dL Lactic Acid (0.4-2.0) Calcium 9.3 (8.4-10.2) mg/dL Magnesium 2.0 (1.6-2.3) mg/dL Total Bilirubin 0.40 (0.2-1.3) mg/dL AST 29 (14-36) U/L ALT 25 (0-35) U/L Alkaline Phosphatase 113 (38-126) U/L Troponin I (0.000-0.033) ng/mL NT-Pro-B Natriuret Pep 183 (<300) pg/mL Serum Total Protein 6.7 (6.3-8.2) g/dL Albumin 4.1 (3.5-5.0) g/dL Influenza Type A Ag (NEGATIVE) Influenza Type B Ag (NEGATIVE) RSV (PCR) (NEGATIVE) SARS-CoV-2 (PCR) (NEGATIVE) 03/27/25 03/27/25 Range/Units 13:37 13:37 WBC 8.4 (3.98-10.04) x10^3/uL RBC 4.48 (3.93-5.22) x10^6/uL Hgb 13.4 (11.2-15.7) g/dL Hct 42.8 (34.1-44.9) % MCV 95.5 H (79.4-94.8) fL MCH 29.9 (25.6-32.2) pg MCHC 31.3 L (32.2-35.5) g/dL RDW 15.2 H (11.7-14.4) % Plt Count 226 (182-369) x10^3/uL MPV 10.6 (9.4-12.3) fL Gran % 66.9 (34.0-71.1) % Immature Gran % (Auto) 0.1 (0.001-0.429) % Nucleat RBC Rel Count 0.0 (0.00-0.2) % Eos # (Auto) 0.25 (0.04-0.36) x10^3/uL Immature Gran # (Auto) 0.01 (0.001-0.031) x10^3u/L Absolute Lymphs (auto) 1.86 (1.18-3.74) x10^3/uL Absolute Monos (auto) 0.66 (0.24-0.86) x10^3/uL Absolute Nucleated RBC 0.00 (0.00-0.012) x10^3u/L Lymphocytes % 22.0 (19.3-51.7) % Monocytes % 7.8 (4.7-12.5) % Eosinophils % 3.0 (0.7-5.8) % Basophils % 0.2 (0.1-1.2) % Absolute Granulocytes 5.64 (1.56-6.13) x10^3/uL Basophils # 0.02 (0.01-0.08) x10^3/uL D-Dimer (0.0-0.50) mg/L pO2/FiO2 Ratio % VBG pH (7.32-7.42) VBG pCO2 at Pat Temp (42-55) mm/Hg VBG pO2 at Pat Temp (25-40) mm/Hg VBG HCO3 (22-28) meq/L VBG O2 Sat (Tato) (95-100) VBG Base Excess (-2.0-2.0) VBG Hemoglobin VBG Carboxyhemoglobin (0.0-6.9) % T HGB POC Potassium (3.5-5.1) Sodium (135-145) mmol/L Potassium (3.5-5.1) mmol/L Chloride (98-107) mmol/L Carbon Dioxide (22-30) mmol/L Anion Gap (5-15) MEQ/L BUN (7-17) mg/dL Creatinine (0.52-1.04) mg/dL Estimated GFR ML/MIN Glucose (74-106) mg/dL Lactic Acid 1.1 (0.4-2.0) Calcium (8.4-10.2) mg/dL Magnesium (1.6-2.3) mg/dL Total Bilirubin (0.2-1.3) mg/dL AST (14-36) U/L ALT (0-35) U/L Alkaline Phosphatase (38-126) U/L Troponin I (0.000-0.033) ng/mL NT-Pro-B Natriuret Pep (<300) pg/mL Serum Total Protein (6.3-8.2) g/dL Albumin (3.5-5.0) g/dL Influenza Type A Ag (NEGATIVE) Influenza Type B Ag (NEGATIVE) RSV (PCR) (NEGATIVE) SARS-CoV-2 (PCR) (NEGATIVE) - Progress Air Movement: fair Progress Note: 03/27/25 14:08 The patient appears to be suffering from a moderate exacerbation of COPD. Based on the history, exam, and workup I dont suspect any other emergent cause of this presentation, such as pneumonia, acute coronary syndrome, congestive heart failure, pulmonary embolism, or pneumothorax. ED Interventions: bronchodilators, steroids, antibiotics, reassess 03/27/25 18:03 Feeling better but still requiring increased O2. CTA neg for PE. Dr. Alexander accepts for admission at 1642. Blood Culture(s) Obtained: Yes Antibiotics given: Yes Counseled pt/family regarding: lab results, diagnosis, need for follow-up, rad results Medical Desision Making - Diagnostic Testing Diagnostic test were ordered, analyzed, and reviewed by me: Yes Radiological Interpretation: Interpreted by me, Reviewed by me, Teleradiologist Report - Risk of complications The pt has a mod risk of morbidity or mortality based on: Need for prescription drug management The pt has a high risk of morbidity or mortality based on: Decision regarding hospitilization or escalation of hosp level of care - Departure Departure Disposition: Observation Clinical Impression: COPD exacerbation, Smoker Condition: Stable Critical Care Time: No
[2025-03-27] MEDS ORDERED: Sterile H2O 10 ml IJ ONE ×2 (13:48→22:37)
[2025-03-27] MEDS ORDERED: ROCEPHIN 1 GM / 100 ML NaCl 1 GM/100 ML IVPB IV ONE (13:48)
[2025-03-27] MEDS ORDERED: DUONEB 0.5-3 MG/3 ml Neb IH ONE (13:54)
[2025-03-27] MEDS: solu-MEDROL 125 MG, Sterile H2O 10 ml 2 ML IV ONE (13:54)
[2025-03-27] MEDS: ROCEPHIN 1 GM / 100 ML NaCl 1 GM/100 ML IVPB IV ONE (13:55)
[2025-03-27] MEDS: DUONEB 0.5-3 MG/3 ml Neb IH ONE (14:03)
[2025-03-27 14:06] LABS: BASOPHIL % 0.2 % (0.1-1.2); Basophil (Absolute #) 0.02 x10^3/uL (0.01-0.08); Eosinophil (Absolute #) 0.25 x10^3/uL (0.04-0.36); Hematocrit 42.8 % (34.1-44.9); Hemoglobin 13.4 g/dL (11.2-15.7); IMMATURE GRAN # 0.01 x10^3u/L (0.001-0.031); IMMATURE GRAN % 0.1 % (0.001-0.429); Lymphocyte (Absolute #) 1.86 x10^3/uL (1.18-3.74); Mean Corpuscular Hemoglobin 29.9 pg (25.6-32.2); Mean Corpuscular Hgb Concent. 31.3 g/dL (32.2-35.5); Monocyte (Absolute #) 0.66 x10^3/uL (0.24-0.86); NUCLEATED RBC # 0.00 x10^3u/L (0.00-0.012); NUCLEATED RBC % 0.0 % (0.00-0.2); Platelet Count 226 x10^3/uL (182-369); Red Blood Count 4.48 x10^6/uL (3.93-5.22); White Blood Count 8.4 x10^3/uL (3.98-10.04)
[2025-03-27 14:11] LABS: VBG BASE EXCESS 7.0 (-2.0-2.0); VBG CARBOXYHEMOGLOBIN 5.3 % T HGB (0.0-6.9); VBG FIO2 21.0 %; VBG HCO3- 31.3 meq/L (22-28); VBG HEMOGLOBIN 14.2; VBG O2 SATURATION 95.0 (95-100); VBG PCO2 42.0 mm/Hg (42-55); VBG PO2 66.0 mm/Hg (25-40); VBG POTASSIUM 4.5 (3.5-5.1)
[2025-03-27] MEDS ORDERED: ZITHROMAX IV IV ONE (14:23)
[2025-03-27 14:30] LABS: Calcium 9.3 mg/dL (8.4-10.2); Carbon Dioxide 30.0 mmol/L (22-30); Creatinine 1 0.8 mg/dL (0.52-1.04); EST GLOMERULAR FILTRATION RATE 80.7 ML/MIN; Glucose 104.0 mg/dL (74-106); NT PRO BNPII 183.0 pg/mL (<300); Potassium 4.2 mmol/L (3.5-5.1); SGOT/AST 29.0 U/L (14-36); SGPT/ALT 25.0 U/L (0-35); Total Protein 6.7 g/dL (6.3-8.2)
[2025-03-27] MEDS: ZITHROMAX IV*** 500 MG in Sodium Chloride 0.9% 250 ML 250 ML IV STA (14:34)
[2025-03-27 14:41] LABS: INFLUENZA A NEGATIVE (NEGATIVE); INFLUENZA B NEGATIVE (NEGATIVE); RESPIRATORY SYNCTIAL VIRUS NEGATIVE (NEGATIVE); SARS-CoV-2 Xpert Express NEGATIVE (NEGATIVE)
[2025-03-27] MEDS: Ativan 2 MG/1 ML VIAL IM ONE (14:51)
--- NOTE | 2025-03-27 16:25 | XRAY ---
CLINICAL HISTORY: sob COMPARISON: CT chest dated 09/01/2023. TECHNIQUE: Contiguous 3.[address] angiographic images of the chest were acquired with the administration of intravenous contrast. Coronal and sagittal reconstructions were obtained. One of these 3D techniques was utilized: Maximum Intensity Pixel (MIP), 3D Reconstructed Images, Volume Rendered Images, Surface Shaded Rendering. One of the following dose reduction techniques were utilized for this exam: Automated exposure control, adjustment of the mA and/or kV according to patient size, and use of iterative reconstruction. FINDINGS: Aorta: Moderate diffuse atheromatous calcifications. The thoracic aorta is normal in caliber. No evidence of aneurysm, dissection. Pulmonary Arteries: Pulmonary arteries are normal in size and opacification. No evidence of pulmonary embolism. No stenosis or filling defects. Superior Vena Cava (SVC) and Inferior Vena Cava (IVC): Normal opacification and caliber. No evidence of thrombus or obstruction. Mediastinum: No mediastinal mass or lymphadenopathy. Few reactive-looking mediastinal lymph nodes. Normal appearance of the thymus. Heart: Mitral valve replacement is seen. Normal size and morphology of the heart. No pericardial effusion. Atheromatous calcifications of the coronaries. Lungs: Stable appearance of the scattered bilateral linear atelectatic bands. Stable centrilobular and paraseptal emphysematous changes. No pleural effusion or thickening. Bones: Stable appearance of the sternotomy wire sutures. Spondylodegenerative changes. No fractures or lytic/sclerotic lesions of the visualized bony structures. Normal alignment and bone density. Soft Tissues: Normal appearance of the visualized soft tissues. No abnormal masses or fluid collections. Moderate-sized hiatus hernia (stable) Fatty liver is seen. Right thyroid lobe hypodense nodule( 6 mm). IMPRESSION: 1. No evidence of pulmonary embolism. 2. Stable appearance of the lung emphysematous changes. 3. Mitral valve replacement. (stable) 4. Sternomoty wire sutures.(stable) 5. Moderate-sized hiatus hernia (stable) 6. Fatty liver (stable). 7. Right thyroid lobe hypodense nodule.(stable) Electronically Signed by: John Dougherty MD. (03/27/2025 16:22:33 EDT)
--- NOTE | 2025-03-27 17:56 | PCM.HP ---
History of Present Illness - Chief Complaint Chief Complaint: copd exacerbation Date: 03/27/25 History of Present Illness: is a 69 year old female with pmhx of COPD, chronic obesity, MT, asthma, anxiety, and depression. The patient presented to the emergency department after running out of her Breztri inhaler for COPD on Friday and subsequently experiencing worsening shortness of breath. She is now requiring 3 liters of supplemental oxygen to maintain adequate oxygen saturation, compared to her baseline of 2 liters at home. She reports productive cough with white and yellow sputum but denies chest pain, nausea, or vomiting. She experienced one episode of diarrhea in the ER, for which acidophilus will be started. Her symptoms increase with any activity, leading to significant exertional intolerance. Inpatient management will continue the treatments initiated in the emergency department, including antibiotics, steroids, breathing treatments, Advair, and DuoNebs. On examination, she has diffuse wheezing and crackles on lung auscultation. IV fluids were discontinued on admission. Laboratory studies were reviewed and were overall non-concerning. The patient was informed that if her symptoms improve, she may be considered for discharge tomorrow. - Review of Systems Constitutional: No Fever, No Chills Eyes: No Symptoms Ears, Nose, & Throat: No Symptoms Respiratory: Cough, Short Of Breath Cardiac: No Chest Pain, No Edema, No Syncope Abdominal/Gastrointestinal: Diarrhea (x1 in ER), No Abdominal Pain, No Nausea, No Vomiting Genitourinary Symptoms: No Dysuria Musculoskeletal: No Back Pain, No Neck Pain Skin: No Rash Neurological: No Dizziness, No Focal Weakness, No Sensory Changes Psychological: No Symptoms Endocrine: No Symptoms Hematologic/Lymphatic: No Symptoms Immunological/Allergic: No Symptoms Medications & Allergies Home Medications: Home Medication List Atorvastatin Calcium 40 mg PO HS 12/02/22 [History Confirmed 03/27/25] Carvedilol [Coreg ] 6.25 mg PO BID 12/02/22 [History Confirmed 03/27/25] Furosemide [Lasix] 20 mg PO DAILY 12/02/22 [History Confirmed 03/27/25] Losartan Potassium 50 mg PO DAILY 12/02/22 [History Confirmed 03/27/25] Montelukast Sodium 10 mg [Singulair 10 MG] 10 mg PO DAILY 12/02/22 [History Confirmed 03/27/25] Nitroglycerin 0.4 mg SL Q5MIN PRN MR X 3 PRN 12/02/22 [History Confirmed 03/27/25] PARoxetine HCL [Paroxetine HCl] 40 mg PO DAILY PRN PRN 12/02/22 [History Confirmed 03/27/25] Albuterol/Ipratropium 3ml Neb* [DUONEB 0.5-3 MG/3 ml Neb] 1 neb IH QID #1 12/03/22 [Rx Confirmed 03/27/25] Guaifenesin 600 mg ER [Mucinex 600MG ER Tabs] 600 mg PO BID #14 tablet 12/03/22 [Rx Confirmed 03/27/25] Albuterol Sulfate [Albuterol Sulfate Hfa] 2 puff IH BID PRN 05/05/24 [History Confirmed 03/27/25] Aspirin EC 81 mg [Ecotrin 81 mg] 81 mg PO DAILY 05/05/24 [History Confir med 03/27/25] Fluticasone Propionate 50 mcg INTRANASAL DAILY 05/05/24 [History Confirmed 03/27/25] Potassium Chloride [Klor-Con M20] 20 meq PO DAILY 05/05/24 [History Confirmed 03/27/25] Budesonide/Glycopyr/Formoterol [Breztri Aerosphere Inhaler] 1 puff IH TID 03/27/25 [History Confirmed 03/27/25] Ferrous Sulfate 1 ea PO UD 03/27/25 [History Confirmed 03/27/25] Omeprazole 20 mg PO DAILY 03/27/25 [History Confirmed 03/27/25] Allergies/Adverse Reactions: Allergies Allergy/AdvReac Type Severity Reaction Status Date / Time ampicillin [Ampicillin] Allergy Verified 03/27/25 13:29 Penicillins Allergy Verified 03/27/25 13:29 vitafusion D Allergy Uncoded 03/27/25 13:29 - Past Medical History Past Medical History: Yes Neurological History: No Pertinent History ENT History: No Pertinent History Cardiac History: Myocardial Infarction (MT) Respiratory History: Asthma, COPD Endocrine Medical History: No Pertinent History Musculoskelatal History: No Pertinent History GI Medical History: Ulcer History: No Pertinent History Pyscho-Social History: Anxiety, Depression Reproductive Disorders: No Pertinent History - Past Surgical History Past Surgical History: Yes Neuro Surgical History: No Pertinent History Cardiac History: Other Respiratory Surgery: No Pertinent History GI Surgical History: Appendectomy Genitourinary Surgical Hx: No Pertinent History Musculskeletal Surgical Hx: No Pertinent History Female Surgical History: Tubal Ligation Other Surgical History: open heart- remove growth from heart- 2014, Repair of mitral valve, repair left ventericular anueusysm, mass removal from heart.quit smoking may 2024 Significant Family History: no pertinent family hx - Social History Smoking Status: Former smoker How long have you smoked: 40 y Exposure to second hand smoke: Yes Alcohol: Occasionally Drug Use: marijuana - Social Determinants of Health Will the patient participate in the screening: Yes Do you worry about a steady place to live?: No Do you have any problems with any of the following?: Pest (bugs,ants,or mice) In the past 12 months,have you had to go without utilities?: No Have you or anyone in your house had to go without enough: No Transportation Issues: No Has anyone in your support network made you feel unsafe?: No Does the patient want assistance with any of the above?: No Comment: mice - Physical Exam Vital Signs: Vital Signs - 24 hr Temp Pulse Resp BP BP Pulse Ox 03/27/25 17:25 88 18 97 03/27/25 17:22 97.7 F 90 16 147/84 91 L 03/27/25 17:12 97.7 F 90 16 147/84 91 L 03/27/25 15:07 104 H 29 H 128/78 98 03/27/25 15:01 87 24 92/77 03/27/25 14:45 88 24 141/74 95 03/27/25 14:30 128/76 03/27/25 14:15 85 24 121/58 95 03/27/25 14:03 88 18 94 L 03/27/25 14:02 81 32 H 134/71 96 03/27/25 13:45 93 H 28 H 122/88 94 L 03/27/25 13:33 90 28 H 139/111 93 L 03/27/25 13:30 89 29 H 139/111 95 General Appearance: no apparent distress, alert, obese Neurologic Exam: alert, oriented x 3, cooperative, normal mood/affect, nml cerebellar function, nml station & gait, sensation nml, No motor deficits Eye Exam: PERRL/EOMI, eyes nml inspection Ears, Nose, Throat Exam: normal ENT inspection, TMs normal, pharynx normal, moist mucous membranes Neck Exam: normal inspection, non-tender, supple, full range of motion Respiratory Exam: crackles/rales, wheezing, No respiratory distress Cardiovascular Exam: regular rate/rhythm, normal heart sounds, normal peripheral pulses Gastrointestinal/Abdomen Exam: soft, normal bowel sounds, No tenderness, No mass Back Exam: normal inspection, normal range of motion, No CVA tenderness, No vertebral tenderness Extremity Exam: normal inspection, normal range of motion, pelvis stable Skin Exam: normal color, warm, dry, No rash Lymphatic Exam: No adenopathy Results - Labs Lab/Micro Results: Lab Results-Last 24 Hours 03/27/25 03/27/25 03/27/25 Range/Units 13:37 13:37 13:39 WBC 8.4 (3.98-10.04) x10^3/uL RBC 4.48 (3.93-5.22) x10^6/uL Hgb 13.4 (11.2-15.7) g/dL Hct 42.8 (34.1-44.9) % MCV 95.5 H (79.4-94.8) fL MCH 29.9 (25.6-32.2) pg MCHC 31.3 L (32.2-35.5) g/dL RDW 15.2 H (11.7-14.4) % Plt Count 226 (182-369) x10^3/uL MPV 10.6 (9.4-12.3) fL Gran % 66.9 (34.0-71.1) % Immature Gran % (Auto) 0.1 (0.001-0.429) % Nucleat RBC Rel Count 0.0 (0.00-0.2) % Eos # (Auto) 0.25 (0.04-0.36) x10^3/uL Immature Gran # (Auto) 0.01 (0.001-0.031) x10^3u/L Absolute Lymphs (auto) 1.86 (1.18-3.74) x10^3/uL Absolute Monos (auto) 0.66 (0.24-0.86) x10^3/uL Absolute Nucleated RBC 0.00 (0.00-0.012) x10^3u/L Lymphocytes % 22.0 (19.3-51.7) % Monocytes % 7.8 (4.7-12.5) % Eosinophils % 3.0 (0.7-5.8) % Basophils % 0.2 (0.1-1.2) % Absolute Granulocytes 5.64 (1.56-6.13) x10^3/uL Basophils # 0.02 (0.01-0.08) x10^3/uL D-Dimer (0.0-0.50) mg/L pO2/FiO2 Ratio 21.0 % VBG pH 7.48 H (7.32-7.42) VBG pCO2 at Pat Temp 42 (42-55) mm/Hg VBG pO2 at Pat Temp 66 H (25-40) mm/Hg VBG HCO3 31.3 H* (22-28) meq/L VBG O2 Sat (Tato) 95.0 (95-100) VBG Base Excess 7.0 H (-2.0-2.0) VBG Hemoglobin 14.2 VBG Carboxyhemoglobin 5.3 (0.0-6.9) % T HGB POC Potassium 4.5 (3.5-5.1) Sodium (135-145) mmol/L Potassium (3.5-5.1) mmol/L Chloride (98-107) mmol/L Carbon Dioxide (22-30) mmol/L Anion Gap (5-15) MEQ/L BUN (7-17) mg/dL Creatinine (0.52-1.04) mg/dL Estimated GFR ML/MIN Glucose (74-106) mg/dL Lactic Acid 1.1 (0.4-2.0) Calcium (8.4-10.2) mg/dL Magnesium (1.6-2.3) mg/dL Total Bilirubin (0.2-1.3) mg/dL AST (14-36) U/L ALT (0-35) U/L Alkaline Phosphatase (38-126) U/L Troponin I (0.000-0.033) ng/mL NT-Pro-B Natriuret Pep (<300) pg/mL Serum Total Protein (6.3-8.2) g/dL Albumin (3.5-5.0) g/dL Influenza Type A Ag (NEGATIVE) Influenza Type B Ag (NEGATIVE) RSV (PCR) (NEGATIVE) SARS-CoV-2 (PCR) (NEGATIVE) 03/27/25 03/27/25 03/27/25 Range/Units 13:50 13:50 13:50 WBC (3.98-10.04) x10^3/uL RBC (3.93-5.22) x10^6/uL Hgb (11.2-15.7) g/dL Hct (34.1-44.9) % MCV (79.4-94.8) fL MCH (25.6-32.2) pg MCHC (32.2-35.5) g/dL RDW (11.7-14.4) % Plt Count (182-369) x10^3/uL MPV (9.4-12.3) fL Gran % (34.0-71.1) % Immature Gran % (Auto) (0.001-0.429) % Nucleat RBC Rel Count (0.00-0.2) % Eos # (Auto) (0.04-0.36) x10^3/uL Immature Gran # (Auto) (0.001-0.031) x10^3u/L Absolute Lymphs (auto) (1.18-3.74) x10^3/uL Absolute Monos (auto) (0.24-0.86) x10^3/uL Absolute Nucleated RBC (0.00-0.012) x10^3u/L Lymphocytes % (19.3-51.7) % Monocytes % (4.7-12.5) % Eosinophils % (0.7-5.8) % Basophils % (0.1-1.2) % Absolute Granulocytes (1.56-6.13) x10^3/uL Basophils # (0.01-0.08) x10^3/uL D-Dimer 0.71 H* (0.0-0.50) mg/L pO2/FiO2 Ratio % VBG pH (7.32-7.42) VBG pCO2 at Pat Temp (42-55) mm/Hg VBG pO2 at Pat Temp (25-40) mm/Hg VBG HCO3 (22-28) meq/L VBG O2 Sat (Tato) (95-100) VBG Base Excess (-2.0-2.0) VBG Hemoglobin VBG Carboxyhemoglobin (0.0-6.9) % T HGB POC Potassium (3.5-5.1) Sodium 142 (135-145) mmol/L Potassium 4.2 (3.5-5.1) mmol/L Chloride 104 (98-107) mmol/L Carbon Dioxide 30 (22-30) mmol/L Anion Gap 11.9 (5-15) MEQ/L BUN 18 H (7-17) mg/dL Creatinine 0.80 (0.52-1.04) mg/dL Estimated GFR 80.7 ML/MIN Glucose 104 (74-106) mg/dL Lactic Acid (0.4-2.0) Calcium 9.3 (8.4-10.2) mg/dL Magnesium 2.0 (1.6-2.3) mg/dL Total Bilirubin 0.40 (0.2-1.3) mg/dL AST 29 (14-36) U/L ALT 25 (0-35) U/L Alkaline Phosphatase 113 (38-126) U/L Troponin I < 0.012 (0.000-0.033) ng/mL NT-Pro-B Natriuret Pep 183 (<300) pg/mL Serum Total Protein 6.7 (6.3-8.2) g/dL Albumin 4.1 (3.5-5.0) g/dL Influenza Type A Ag (NEGATIVE) Influenza Type B Ag (NEGATIVE) RSV (PCR) (NEGATIVE) SARS-CoV-2 (PCR) (NEGATIVE) 03/27/25 03/27/25 Range/Units 14:01 15:45 WBC (3.98-10.04) x10^3/uL RBC (3.93-5.22) x10^6/uL Hgb (11.2-15.7) g/dL Hct (34.1-44.9) % MCV (79.4-94.8) fL MCH (25.6-32.2) pg MCHC (32.2-35.5) g/dL RDW (11.7-14.4) % Plt Count (182-369) x10^3/uL MPV (9.4-12.3) fL Gran % (34.0-71.1) % Immature Gran % (Auto) (0.001-0.429) % Nucleat RBC Rel Count (0.00-0.2) % Eos # (Auto) (0.04-0.36) x10^3/uL Immature Gran # (Auto) (0.001-0.031) x10^3u/L Absolute Lymphs (auto) (1.18-3.74) x10^3/uL Absolute Monos (auto) (0.24-0.86) x10^3/uL Absolute Nucleated RBC (0.00-0.012) x10^3u/L Lymphocytes % (19.3-51.7) % Monocytes % (4.7-12.5) % Eosinophils % (0.7-5.8) % Basophils % (0.1-1.2) % Absolute Granulocytes (1.56-6.13) x10^3/uL Basophils # (0.01-0.08) x10^3/uL D-Dimer (0.0-0.50) mg/L pO2/FiO2 Ratio % VBG pH (7.32-7.42) VBG pCO2 at Pat Temp (42-55) mm/Hg VBG pO2 at Pat Temp (25-40) mm/Hg VBG HCO3 (22-28) meq/L VBG O2 Sat (Tato) (95-100) VBG Base Excess (-2.0-2.0) VBG Hemoglobin VBG Carboxyhemoglobin (0.0-6.9) % T HGB POC Potassium (3.5-5.1) Sodium (135-145) mmol/L Potassium (3.5-5.1) mmol/L Chloride (98-107) mmol/L Carbon Dioxide (22-30) mmol/L Anion Gap (5-15) MEQ/L BUN (7-17) mg/dL Creatinine (0.52-1.04) mg/dL Estimated GFR ML/MIN Glucose (74-106) mg/dL Lactic Acid (0.4-2.0) Calcium (8.4-10.2) mg/dL Magnesium (1.6-2.3) mg/dL Total Bilirubin (0.2-1.3) mg/dL AST (14-36) U/L ALT (0-35) U/L Alkaline Phosphatase (38-126) U/L Troponin I < 0.012 (0.000-0.033) ng/mL NT-Pro-B Natriuret Pep (<300) pg/mL Serum Total Protein (6.3-8.2) g/dL Albumin (3.5-5.0) g/dL Influenza Type A Ag NEGATIVE (NEGATIVE) Influenza Type B Ag NEGATIVE (NEGATIVE) RSV (PCR) NEGATIVE (NEGATIVE) SARS-CoV-2 (PCR) NEGATIVE (NEGATIVE) - Radiology Impressions Radiology Exams & Impressions: Radiology Procedures Category Date Time Status CHEST 1 VIEW (PORTABLE) Stat Exams 03/27/25 13:56 Taken CHEST WITH CONTRAST [CT] Stat Exams 03/27/25 15:38 Completed - Other Procedures and Tests Respiratory Therapy 03/27/25 14:03 Respiratory Therapy Assessment DAILY 03/27/25 17:23 Oxygen Nasal Cannula 2 lpm Respiratory MDI BID Assessment/Plan (1) COPD exacerbation Current Visit: No Status: Acute Assessment & Plan: - Ceftriaxone- states she is allergic but she received in ER w/o concerns - Advair, steroids, duonebs - I.S. - Tele - BC x2, Sputum culture - BL 2lNC- On 3lNC 97% - CXR:pending - CBC, CMP reviewed - D-Dimer- 0.71 - Chest CTA- 1. No evidence of pulmonary embolism. 2. Stable appearance of the lung emphysematous changes. 3. Mitral valve replacement. (stable) 4. Sternomoty wire sutures.(stable) 5. Moderate-sized hiatus hernia (stable) 6. Fatty liver (stable). 7. Right thyroid lobe hypodense nodule.(stable) Code(s): J44.1 - CHRONIC OBSTRUCTIVE PULMONARY DISEASE W (ACUTE) EXACERBATION (2) Diarrhea Current Visit: Yes Status: Acute Assessment & Plan: - Probiotics Code(s): R19.7 - DIARRHEA, UNSPECIFIED (3) Coronary artery disease Current Visit: No Status: Chronic Assessment & Plan: - Continue home meds - BNP 183 - Trops x2 negative Code(s): I25.10 - ATHSCL HEART DISEASE OF CIRCLE CORONARY ARTERY W/O ANG PCTRS (4) Obesity (BMI 30-39.9) Current Visit: Yes Status: Chronic Assessment & Plan: - advised diet and exercise control Code(s): E66.9 - OBESITY, UNSPECIFIED (5) Depression with anxiety Current Visit: Yes Status: Chronic Assessment & Plan: - Continue Paxil Code(s): F41.8 - OTHER SPECIFIED ANXIETY DISORDERS (6) Iron deficiency anemia Current Visit: Yes Status: Chronic Assessment & Plan: - Continue Ferrous sulfate - Hgb stable at 13 Code(s): D50.9 - IRON DEFICIENCY ANEMIA, UNSPECIFIED (7) Hyperlipidemia Current Visit: Yes Status: Chronic Assessment & Plan: - Continue statin Code(s): E78.5 - HYPERLIPIDEMIA, UNSPECIFIED (8) GERD (gastroesophageal reflux disease) Current Visit: Yes Status: Acute Assessment & Plan: - Continue PPI VTE: Lovenox PPI: Protonix Next of KIN:Sister- Floridalma Doll D/C plan: 1-2 days Code status: Full Plan of care time > 45 minutes Code(s): K21.9 - GASTRO-ESOPHAGEAL REFLUX DISEASE WITHOUT ESOPHAGITIS Telemedicine Encounter - Telemedicine Encounter Telemedicine Encounter: "The entirety of this encounter was performed via Telemedicine" This visit was performed using real-time audio and video connection between my location and thepatients locationwith the assistance of a surrogateat the patients location. Written or verbal consent was obtained from the patient/guardian to perform this visit [facility]. [facility]. Any patient questions regarding the telemedicine interaction were answered.
[2025-03-27] MEDS ORDERED: PROVENTIL 2.5 MG/3 ML NEB IH SCH (19:00)
[2025-03-27] MEDS: Advair Hfa 115/21 Common canister IH SCH (19:27)
--- NOTE | 2025-03-27 19:55 | XRAY ---
Indication: Short of breath. Comparison: June 29, 2024 Portable chest demonstrates enlarging CT proven hiatal hernia with partial intrathoracic stomach occupying left lung base. Remaining lungs clear. Heart not enlarged again with cardiac valve replacement. Bony thorax intact. No acute findings.
[2025-03-27] MEDS: solu-MEDROL 40 MG, Sterile H2O 10 ml 1 ML IV SCH (22:47)
[2025-03-28 05:09] LABS: Hematocrit 39.7 % (34.1-44.9); Hemoglobin 12.7 g/dL (11.2-15.7); Mean Corpuscular Hemoglobin 30.9 pg (25.6-32.2); Mean Corpuscular Hgb Concent. 32.0 g/dL (32.2-35.5); Platelet Count 208 x10^3/uL (182-369); Red Blood Count 4.11 x10^6/uL (3.93-5.22); White Blood Count 8.0 x10^3/uL (3.98-10.04)
--- NOTE | 2025-03-28 05:19 | PCM.NOTE ---
Date and Time: 03/28/25 0516 Subjective Assessment: Ms. Lal is a 69-year-old female with PMHX significant for myocardial infarction, COPD on home oxygen (2L), and depression who presented to the ED on 03/27/25 with progressive dyspnea an a productive cough with white/yellow sputum. She normally requires 2 L/min nasal cannula continuously at baseline but reported increasing her oxygen to 3 L/min earlier today due to worsening symptoms.She experienced one episode of diarrhea in the ER, for which acidophilus will be started. Her symptoms increase with any activity, leading to significant exertional intolerance. She denied chest pain, palpitations, or peripheral edema. She denied recent fevers, chills, or sick contacts. In the ED, she was noted to be hypoxic, tachypneic, and hypertensive. Chest CT angiography showed no evidence of pulmonary embolism, despite an elevated D- dimer (0.71). Imaging demonstrated emphysematous changes consistent with underlying COPD, a stable mitral valve prosthesis, stable sternotomy wire sutures, and a moderate-sized hiatal hernia unchanged from prior studies. She received ceftriaxone, azithromycin, IV Solu-Medrol, and Ativan in the ED. Given persistent hypoxia and respiratory distress, she was admitted for management of COPD exacerbation. Objective Data Vital Signs: Vital Signs - 24 hr Temp Pulse Resp BP BP Pulse Ox 03/28/25 04:29 97.4 F 87 22 108/63 92 L 03/27/25 23:34 98.9 F 95 H 14 133/70 96 03/27/25 19:59 97.7 F 85 20 147/84 97 03/27/25 19:54 85 20 97 03/27/25 17:25 88 18 97 03/27/25 17:22 97.7 F 90 16 147/84 91 L 03/27/25 17:12 97.7 F 90 16 147/84 91 L 03/27/25 15:07 104 H 29 H 128/78 98 03/27/25 15:01 87 24 92/77 03/27/25 14:45 88 24 141/74 95 03/27/25 14:30 128/76 03/27/25 14:15 85 24 121/58 95 03/27/25 14:03 88 18 94 L 03/27/25 14:02 81 32 H 134/71 96 03/27/25 13:45 93 H 28 H 122/88 94 L 03/27/25 13:33 90 28 H 139/111 93 L 03/27/25 13:30 89 29 H 139/111 95 Pain Assessment - Last Documented Pain Intensity 0 Intake and Output: Intake & Output 03/25/25 03/26/25 03/27/25 03/28/25 11:59 11:59 11:59 11:59 Intake Total 200 Balance 200 Weight 83 kg Lab Results: Lab Results-Last 24 Hours 03/27/25 03/27/25 03/27/25 Range/Units 13:37 13:37 13:39 WBC 8.4 (3.98-10.04) x10^3/uL RBC 4.48 (3.93-5.22) x10^6/uL Hgb 13.4 (11.2-15.7) g/dL Hct 42.8 (34.1-44.9) % MCV 95.5 H (79.4-94.8) fL MCH 29.9 (25.6-32.2) pg MCHC 31.3 L (32.2-35.5) g/dL RDW 15.2 H (11.7-14.4) % Plt Count 226 (182-369) x10^3/uL MPV 10.6 (9.4-12.3) fL Gran % 66.9 (34.0-71.1) % Immature Gran % (Auto) 0.1 (0.001-0.429) % Nucleat RBC Rel Count 0.0 (0.00-0.2) % Eos # (Auto) 0.25 (0.04-0.36) x10^3/uL Immature Gran # (Auto) 0.01 (0.001-0.031) x10^3u/L Absolute Lymphs (auto) 1.86 (1.18-3.74) x10^3/uL Absolute Monos (auto) 0.66 (0.24-0.86) x10^3/uL Absolute Nucleated RBC 0.00 (0.00-0.012) x10^3u/L Lymphocytes % 22.0 (19.3-51.7) % Monocytes % 7.8 (4.7-12.5) % Eosinophils % 3.0 (0.7-5.8) % Basophils % 0.2 (0.1-1.2) % Absolute Granulocytes 5.64 (1.56-6.13) x10^3/uL Basophils # 0.02 (0.01-0.08) x10^3/uL D-Dimer (0.0-0.50) mg/L pO2/FiO2 Ratio 21.0 % VBG pH 7.48 H (7.32-7.42) VBG pCO2 at Pat Temp 42 (42-55) mm/Hg VBG pO2 at Pat Temp 66 H (25-40) mm/Hg VBG HCO3 31.3 H* (22-28) meq/L VBG O2 Sat (Tato) 95.0 (95-100) VBG Base Excess 7.0 H (-2.0-2.0) VBG Hemoglobin 14.2 VBG Carboxyhemoglobin 5.3 (0.0-6.9) % T HGB POC Potassium 4.5 (3.5-5.1) Sodium (135-145) mmol/L Potassium (3.5-5.1) mmol/L Chloride (98-107) mmol/L Carbon Dioxide (22-30) mmol/L Anion Gap (5-15) MEQ/L BUN (7-17) mg/dL Creatinine (0.52-1.04) mg/dL Estimated GFR ML/MIN Glucose (74-106) mg/dL Lactic Acid 1.1 (0.4-2.0) Calcium (8.4-10.2) mg/dL Magnesium (1.6-2.3) mg/dL Total Bilirubin (0.2-1.3) mg/dL AST (14-36) U/L ALT (0-35) U/L Alkaline Phosphatase (38-126) U/L Troponin I (0.000-0.033) ng/mL NT-Pro-B Natriuret Pep (<300) pg/mL Serum Total Protein (6.3-8.2) g/dL Albumin (3.5-5.0) g/dL Influenza Type A Ag (NEGATIVE) Influenza Type B Ag (NEGATIVE) RSV (PCR) (NEGATIVE) SARS-CoV-2 (PCR) (NEGATIVE) 09/14/25 09/14/25 09/14/25 Range/Units 13:50 13:50 13:50 WBC (3.98-10.04) x10^3/uL RBC (3.93-5.22) x10^6/uL Hgb (11.2-15.7) g/dL Hct (34.1-44.9) % MCV (79.4-94.8) fL MCH (25.6-32.2) pg MCHC (32.2-35.5) g/dL RDW (11.7-14.4) % Plt Count (182-369) x10^3/uL MPV (9.4-12.3) fL Gran % (34.0-71.1) % Immature Gran % (Auto) (0.001-0.429) % Nucleat RBC Rel Count (0.00-0.2) % Eos # (Auto) (0.04-0.36) x10^3/uL Immature Gran # (Auto) (0.001-0.031) x10^3u/L Absolute Lymphs (auto) (1.18-3.74) x10^3/uL Absolute Monos (auto) (0.24-0.86) x10^3/uL Absolute Nucleated RBC (0.00-0.012) x10^3u/L Lymphocytes % (19.3-51.7) % Monocytes % (4.7-12.5) % Eosinophils % (0.7-5.8) % Basophils % (0.1-1.2) % Absolute Granulocytes (1.56-6.13) x10^3/uL Basophils # (0.01-0.08) x10^3/uL D-Dimer 0.71 H* (0.0-0.50) mg/L pO2/FiO2 Ratio % VBG pH (7.32-7.42) VBG pCO2 at Pat Temp (42-55) mm/Hg VBG pO2 at Pat Temp (25-40) mm/Hg VBG HCO3 (22-28) meq/L VBG O2 Sat (Tato) (95-100) VBG Base Excess (-2.0-2.0) VBG Hemoglobin VBG Carboxyhemoglobin (0.0-6.9) % T HGB POC Potassium (3.5-5.1) Sodium 142 (135-145) mmol/L Potassium 4.2 (3.5-5.1) mmol/L Chloride 104 (98-107) mmol/L Carbon Dioxide 30 (22-30) mmol/L Anion Gap 11.9 (5-15) MEQ/L BUN 18 H (7-17) mg/dL Creatinine 0.80 (0.52-1.04) mg/dL Estimated GFR 80.7 ML/MIN Glucose 104 (74-106) mg/dL Lactic Acid (0.4-2.0) Calcium 9.3 (8.4-10.2) mg/dL Magnesium 2.0 (1.6-2.3) mg/dL Total Bilirubin 0.40 (0.2-1.3) mg/dL AST 29 (14-36) U/L ALT 25 (0-35) U/L Alkaline Phosphatase 113 (38-126) U/L Troponin I < 0.012 (0.000-0.033) ng/mL NT-Pro-B Natriuret Pep 183 (<300) pg/mL Serum Total Protein 6.7 (6.3-8.2) g/dL Albumin 4.1 (3.5-5.0) g/dL Influenza Type A Ag (NEGATIVE) Influenza Type B Ag (NEGATIVE) RSV (PCR) (NEGATIVE) SARS-CoV-2 (PCR) (NEGATIVE) 03/27/25 03/27/25 03/28/25 Range/Units 14:01 15:45 04:44 WBC 8.0 (3.98-10.04) x10^3/uL RBC 4.11 (3.93-5.22) x10^6/uL Hgb 12.7 (11.2-15.7) g/dL Hct 39.7 (34.1-44.9) % MCV 96.6 H (79.4-94.8) fL MCH 30.9 (25.6-32.2) pg MCHC 32.0 L (32.2-35.5) g/dL RDW 14.8 H (11.7-14.4) % Plt Count 208 (182-369) x10^3/uL MPV 10.6 (9.4-12.3) fL Gran % (34.0-71.1) % Immature Gran % (Auto) (0.001-0.429) % Nucleat RBC Rel Count (0.00-0.2) % Eos # (Auto) (0.04-0.36) x10^3/uL Immature Gran # (Auto) (0.001-0.031) x10^3u/L Absolute Lymphs (auto) (1.18-3.74) x10^3/uL Absolute Monos (auto) (0.24-0.86) x10^3/uL Absolute Nucleated RBC (0.00-0.012) x10^3u/L Lymphocytes % (19.3-51.7) % Monocytes % (4.7-12.5) % Eosinophils % (0.7-5.8) % Basophils % (0.1-1.2) % Absolute Granulocytes (1.56-6.13) x10^3/uL Basophils # (0.01-0.08) x10^3/uL D-Dimer (0.0-0.50) mg/L pO2/FiO2 Ratio % VBG pH (7.32-7.42) VBG pCO2 at Pat Temp (42-55) mm/Hg VBG pO2 at Pat Temp (25-40) mm/Hg VBG HCO3 (22-28) meq/L VBG O2 Sat (Tato) (95-100) VBG Base Excess (-2.0-2.0) VBG Hemoglobin VBG Carboxyhemoglobin (0.0-6.9) % T HGB POC Potassium (3.5-5.1) Sodium (135-145) mmol/L Potassium (3.5-5.1) mmol/L Chloride (98-107) mmol/L Carbon Dioxide (22-30) mmol/L Anion Gap (5-15) MEQ/L BUN (7-17) mg/dL Creatinine (0.52-1.04) mg/dL Estimated GFR ML/MIN Glucose (74-106) mg/dL Lactic Acid (0.4-2.0) Calcium (8.4-10.2) mg/dL Magnesium (1.6-2.3) mg/dL Total Bilirubin (0.2-1.3) mg/dL AST (14-36) U/L ALT (0-35) U/L Alkaline Phosphatase (38-126) U/L Troponin I < 0.012 (0.000-0.033) ng/mL NT-Pro-B Natriuret Pep (<300) pg/mL Serum Total Protein (6.3-8.2) g/dL Albumin (3.5-5.0) g/dL Influenza Type A Ag NEGATIVE (NEGATIVE) Influenza Type B Ag NEGATIVE (NEGATIVE) RSV (PCR) NEGATIVE (NEGATIVE) SARS-CoV-2 (PCR) NEGATIVE (NEGATIVE) Radiology Exams: Radiology Procedures Category Date Time Status CHEST 1 VIEW (PORTABLE) Stat Exams 03/27/25 13:56 Completed CHEST WITH CONTRAST [CT] Stat Exams 03/27/25 15:38 Completed Medications: Medications Generic Name Dose Route Start Last Admin Trade Name Freq PRN Reason Stop Dose Admin Albuterol/Ipratropium 3 ml 03/27/25 18:00 Ipratropium/Albuterol Sulfate 3 Ml Ampul.[facility] 04/26/25 17:59 Q4HPRN PRN SHORTNESS OF BREATH/WHEEZING Methylprednisolone Sodium 0 mg 03/27/25 22:00 03/27/25 22:47 Succinate 40 mg/ Sterile Water IV 04/26/25 21:59 40 mg 1 ml Q8HT LORELEI Administration Enoxaparin Sodium 40 mg 03/28/25 10:00 Enoxaparin Sodium 40 Mg/0.4 Ml Syringe SQ 04/27/25 09:59 DAILY LORELEI Ceftriaxone Sodium 1 gm in 100 mls @ 200 mls/hr 03/28/25 10:00 Rocephin 1 Gm / 100 Ml Nacl IV 04/27/25 09:59 Q24H10 LORELEI Lactobacillus Acidophilus 1 tab 03/28/25 10:00 Lactobacillus Acidophilus 1 Tab Tablet PO 04/27/25 09:59 DAILY LORELEI Fluticasone/Salmeterol 2 puff 03/27/25 19:00 03/27/25 19:27 Fluticasone/Salmeterol 115/21 60 Puff Aer.W.Adap 04/26/25 18:59 2 puff BIDRT LORELEI Administration Discontinued Medications Generic Name Dose Route Start Last Admin Trade Name Freq PRN Reason Stop Dose Admin Albuterol Sulfate 2.5 mg 03/27/25 19:00 Albuterol Sulfate 2.5 Mg/3 Ml [facility] 04/26/25 18:59 TIDRT LORELEI Albuterol/Ipratropium 3 ml 03/27/25 13:37 03/27/25 14:03 Ipratropium/Albuterol Sulfate 3 Ml Ampul.Neb IH 03/27/25 13:38 3 ml STAT ONE Administration Albuterol/Ipratropium Confirm 03/27/25 13:54 Ipratropium/Albuterol Sulfate 3 Ml Ampul.Neb Administered 03/27/25 13:55 Dose 3 ml IH .STK-MED ONE Azithromycin Confirm 03/27/25 14:23 Azithromycin Inj Administered 03/27/25 14:24 Dose 500 mg IV .STK-MED ONE Methylprednisolone Sodium 0 mg 03/27/25 13:37 03/27/25 13:54 Succinate 125 mg/ Sterile IV 03/27/25 13:38 125 mg Water 2 ml STAT ONE Administration Sodium Chloride 1,000 mls @ 999 mls/hr 03/27/25 13:37 03/27/25 15:00 Sodium Chloride 0.9% 1000 Ml IV 03/27/25 14:37 Infused .Q1H1M STA Infusion Azithromycin 500 mg/ Sodium 250 mls @ 250 mls/hr 03/27/25 13:37 03/27/25 15:4 7 Chloride IV 03/27/25 14:36 Infused STAT STA Infusion Ceftriaxone Sodium 1 gm in 100 mls @ 200 mls/hr 03/27/25 13:37 03/27/25 14:38 Rocephin 1 Gm / 100 Ml Nacl IV 03/27/25 14:06 Infused STAT ONE Infusion Sodium Chloride Confirm 03/27/25 13:48 Sodium Chloride 0.9% 1000 Ml Administered 03/27/25 13:49 Dose 1,000 mls @ ud .ROUTE .STK-MED ONE Ceftriaxone Sodium Confirm 03/27/25 13:48 Rocephin 1 Gm / 100 Ml Nacl Administered 03/27/25 13:49 Dose 1 gm in 100 mls @ ud IV .STK-MED ONE Sodium Chloride Confirm 03/27/25 14:24 Sodium Chloride 0.9% 250 Ml Administered 03/27/25 14:25 Dose 250 mls @ ud IV .STK-MED ONE Lorazepam 1 mg 03/27/25 14:44 03/27/25 14:51 Lorazepam 2 Mg/1 Ml 2 Mg Vial IM 03/27/25 14:45 1 mg STAT ONE Administration Methylprednisolone Sodium Succinate Confirm 03/27/25 13:48 Methylprednis Sod Succ 125 Mg/2 Ml Vial Administered 03/27/25 13:49 Dose 125 mg .ROUTE .STK-MED ONE Methylprednisolone Sodium Succinate Confirm 03/27/25 22:36 Methylprednisolone Sod Suc 40m 40 Mg/Ml Vial Administered 03/27/25 22:37 Dose 40 mg .ROUTE .STK-MED ONE Sterile Water Confirm 03/27/25 13:48 Water For Injection,Sterile 10 Ml Vial Administered 03/27/25 13:49 Dose 10 ml IJ .STK-MED ONE Sterile Water Confirm 03/27/25 22:37 Water For Injection,Sterile 10 Ml Vial Administered 03/27/25 22:38 Dose 10 ml IJ .STK-MED ONE Tiotropium [place] 1 ea 03/28/25 10:00 Tiotropium [place] 18 Mcg/Cap Inhaler IH 04/27/25 09:59 DAILY LORELEI Multi-Disciplinary Progress Notes: Multi-Disciplinary Progress Notes 03/27/25 19:50 Respiratory Note by Luci Boyer Pt refused IS. Pt stated "I have 2 of those at home and don't use them" Initialized on 03/27/25 19:50 - END OF NOTE Assessment/Plan (1) COPD exacerbation Current Visit: No Status: Acute Assessment & Plan: -CTA chest: emphysematous changes, no PE; stable prosthetic mitral valve and hiatal hernia. -IV methylprednisolone given in ED transition to oral prednisone taper as tolerated. -Scheduled bronchodilators: Duonebs q4h, albuterol PRN. -Inhaled steroid: Pulmicort neb. -Empiric antibiotics: ceftriaxone + azithromycin in ED, continue with Ceftriaxone -Maintain O2 sats 8892% with nasal cannula; currently 3 L. -Monitor for worsening requiring noninvasive ventilation (BiPAP). -Encourage pulmonary hygiene, early ambulation as tolerated. Code(s): J44.1 - CHRONIC OBSTRUCTIVE PULMONARY DISEASE W (ACUTE) EXACERBATION (2) Acute hypoxemic respiratory failure Current Visit: Yes Status: Acute Assessment & Plan: -2/2 COPD exacerbation -O2 increased from baseline 2 L - 3 L. -Titrate to maintain sat >88%. -Monitor ABG if worsening respiratory status Code(s): J96.01 - ACUTE RESPIRATORY FAILURE WITH HYPOXIA (3) Hiatal hernia Current Visit: Yes Status: Acute Assessment & Plan: -Stable on CT; no acute intervention needed. -Continue reflux precautions, PPI therapy as indicated. Code(s): K44.9 - DIAPHRAGMATIC HERNIA WITHOUT OBSTRUCTION OR GANGRENE (4) Depression with anxiety Current Visit: Yes Status: Chronic Assessment & Plan: -Continue home antidepressant regimen. Code(s): F41.8 - OTHER SPECIFIED ANXIETY DISORDERS (5) HLD (hyperlipidemia) Current Visit: Yes Status: Acute Assessment & Plan: -continue home regimen Code(s): E78.5 - HYPERLIPIDEMIA, UNSPECIFIED (6) GERD (gastroesophageal reflux disease) Current Visit: Yes Status: Acute Assessment & Plan: -continue protonix Code(s): K21.9 - GASTRO-ESOPHAGEAL REFLUX DISEASE WITHOUT ESOPHAGITIS (7) Obesity (BMI 30-39.9) Current Visit: No Status: Chronic Assessment & Plan: -Advised diet and exercise VTE: SCDs + Lovenox GI: Continue PPI. Diet: cardiac diet. Disposition: 13 days pending stability. Code status: Full code Plan of care time spent >40mins Code(s): E66.9 - OBESITY, UNSPECIFIED
[2025-03-28 05:24] LABS: Calcium 8.9 mg/dL (8.4-10.2); Carbon Dioxide 25 mmol/L (22-30); Creatinine 1 0.65 mg/dL (0.52-1.04); EST GLOMERULAR FILTRATION RATE 96.4 ML/MIN; Glucose 152 mg/dL (74-106); Potassium 3.9 mmol/L (3.5-5.1); SGOT/AST 24 U/L (14-36); SGPT/ALT 22 U/L (0-35); Total Protein 6.4 g/dL (6.3-8.2)
[2025-03-28] MEDS ORDERED: DUONEB 0.5-3 MG/3 ml Neb IH ONE (06:55)
[2025-03-28] MEDS: DUONEB 0.5-3 MG/3 ml Neb IH PRN (06:56)
[2025-03-28] MEDS ORDERED: Spiriva 18 Mcg/Cap Inhaler IH SCH (10:00)
[2025-03-28] MEDS ORDERED: Nitrostat 0.4 MG Tablet SL PRN (10:04)
[2025-03-28] MEDS ORDERED: Paxil 20 MG PO PRN (10:11)
[2025-03-28] MEDS ORDERED: VENTOLIN COMMON CANISTER IH PRN (10:15)
--- NOTE | 2025-03-28 10:20 | PCM.DS ---
Discharge Summary Date of Admission: 03/27/25 17:06 Date of Discharge: 03/28/25 Admitting Physician: SHARLA DILL MD Primary Care Provider: SETH FRANKLIN DO Allergies Allergies ampicillin [Ampicillin] Allergy (Verified 03/27/25 13:29) Penicillins Allergy (Verified 03/27/25 13:29) vitafusion D Allergy (Uncoded 03/27/25 13:29) Hospital Summary - Hospital Course Hospital Course: Ms. Lal is a 69-year-old female with a past medical history significant for myocardial infarction, COPD on home oxygen (2 L), and depression who presented to the emergency department on 03/27/25 with progressive dyspnea and a productive cough with white/yellow sputum. She typically requires 2 L/min of nasal cannula oxygen at baseline but noted increasing her flow to 3 L/min earlier in the day due to worsening symptoms. She reported significant exertional intolerance with minimal activity. She denied chest pain, palpitations, peripheral edema, fevers, chills, or sick contacts. In the ED she experienced one episode of diarrhea, and acidophilus was initiated. She was noted to be hypoxic, tachypneic, and hypertensive. CTA chest showed no pulmonary embolism despite an elevated D-dimer (0.71). Imaging demonstrated emphysematous changes consistent with COPD, a stable mitral valve prosthesis, intact sternotomy wires, and a moderate hiatal hernia unchanged from prior studies. She was treated in the ED with ceftriaxone, azithromycin, IV methylprednisolone, and Ativan. She was admitted for management of COPD exacerbation with acute hypoxemic respiratory failure. During hospitalization, she received scheduled nebulized bronchodilators, inhaled corticosteroids, and supplemental oxygen titrated to maintain saturations 8892%. Her oxygen requirements have now returned to baseline. At discharge, she will complete a course of azithromycin, continue a prednisone taper, and resume her inhaled triple therapy with Breztri and duonebs. Breathing is stable on home oxygen. She was counseled on pulmonary hygiene, early ambulation, and continuation of her chronic medications. Discharge Note New Diagnosis: COPD exacerbation New Medications: Prednisone/azithromycin -refill INH Follow Up: PCP/pulm I spent 35 minutes [id number] with the patient on the day of discharge performing discharge exam, discussing hospital stay and discharge instructions with patient and caregivers, preparation of discharge records, prescriptions & referral forms and addressing any questions/concerns the patient had as documented above. - Vitals & Intake/Output Vital Signs: Vital Signs Temperature 97.6 F 03/28/25 07:46 Pulse Rate 98 H 03/28/25 07:46 Respiratory Rate 20 03/28/25 07:46 Blood Pressure 136/88 03/28/25 07:46 O2 Sat by Pulse Oximetry 91 L 03/28/25 07:46 Intake & Output: Intake & Output 03/25/25 03/26/25 03/27/25 03/28/25 11:59 11:59 11:59 11:59 Intake Total 680 Balance 680 Weight 83 kg - Lab Result Diagrams: 03/28/25 04:44 03/28/25 04:44 Lab Results-Last 24 Hrs: Lab Results-Last 24 Hours 03/27/25 03/27/25 03/27/25 Range/Units 13:37 13:37 13:39 WBC 8.4 (3.98-10.04) x10^3/uL RBC 4.48 (3.93-5.22) x10^6/uL Hgb 13.4 (11.2-15.7) g/dL Hct 42.8 (34.1-44.9) % MCV 95.5 H (79.4-94.8) fL MCH 29.9 (25.6-32.2) pg MCHC 31.3 L (32.2-35.5) g/dL RDW 15.2 H (11.7-14.4) % Plt Count 226 (182-369) x10^3/uL MPV 10.6 (9.4-12.3) fL Gran % 66.9 (34.0-71.1) % Immature Gran % (Auto) 0.1 (0.001-0.429) % Nucleat RBC Rel Count 0.0 (0.00-0.2) % Eos # (Auto) 0.25 (0.04-0.36) x10^3/uL Immature Gran # (Auto) 0.01 (0.001-0.031) x10^3u/L Absolute Lymphs (auto) 1.86 (1.18-3.74) x10^3/uL Absolute Monos (auto) 0.66 (0.24-0.86) x10^3/uL Absolute Nucleated RBC 0.00 (0.00-0.012) x10^3u/L Lymphocytes % 22.0 (19.3-51.7) % Monocytes % 7.8 (4.7-12.5) % Eosinophils % 3.0 (0.7-5.8) % Basophils % 0.2 (0.1-1.2) % Absolute Granulocytes 5.64 (1.56-6.13) x10^3/uL Basophils # 0.02 (0.01-0.08) x10^3/uL D-Dimer (0.0-0.50) mg/L pO2/FiO2 Ratio 21.0 % VBG pH 7.48 H (7.32-7.42) VBG pCO2 at Pat Temp 42 (42-55) mm/Hg VBG pO2 at Pat Temp 66 H (25-40) mm/Hg VBG HCO3 31.3 H* (22-28) meq/L VBG O2 Sat (Tato) 95.0 (95-100) VBG Base Excess 7.0 H (-2.0-2.0) VBG Hemoglobin 14.2 VBG Carboxyhemoglobin 5.3 (0.0-6.9) % T HGB POC Potassium 4.5 (3.5-5.1) Sodium (135-145) mmol/L Potassium (3.5-5.1) mmol/L Chloride (98-107) mmol/L Carbon Dioxide (22-30) mmol/L Anion Gap (5-15) MEQ/L BUN (7-17) mg/dL Creatinine (0.52-1.04) mg/dL Estimated GFR ML/MIN Glucose (74-106) mg/dL POC Glucometer (74 to 106) mg/dL Lactic Acid 1.1 (0.4-2.0) Calcium (8.4-10.2) mg/dL Magnesium (1.6-2.3) mg/dL Total Bilirubin (0.2-1.3) mg/dL AST (14-36) U/L ALT (0-35) U/L Alkaline Phosphatase (38-126) U/L Troponin I (0.000-0.033) ng/mL NT-Pro-B Natriuret Pep (<300) pg/mL Serum Total Protein (6.3-8.2) g/dL Albumin (3.5-5.0) g/dL Influenza Type A Ag (NEGATIVE) Influenza Type B Ag (NEGATIVE) RSV (PCR) (NEGATIVE) SARS-CoV-2 (PCR) (NEGATIVE) 03/27/25 03/27/25 03/27/25 Range/Units 13:50 13:50 13:50 WBC (3.98-10.04) x10^3/uL RBC (3.93-5.22) x10^6/uL Hgb (11.2-15.7) g/dL Hct (34.1-44.9) % MCV (79.4-94.8) fL MCH (25.6-32.2) pg MCHC (32.2-35.5) g/dL RDW (11.7-14.4) % Plt Count (182-369) x10^3/uL MPV (9.4-12.3) fL Gran % (34.0-71.1) % Immature Gran % (Auto) (0.001-0.429) % Nucleat RBC Rel Count (0.00-0.2) % Eos # (Auto) (0.04-0.36) x10^3/uL Immature Gran # (Auto) (0.001-0.031) x10^3u/L Absolute Lymphs (auto) (1.18-3.74) x10^3/uL Absolute Monos (auto) (0.24-0.86) x10^3/uL Absolute Nucleated RBC (0.00-0.012) x10^3u/L Lymphocytes % (19.3-51.7) % Monocytes % (4.7-12.5) % Eosinophils % (0.7-5.8) % Basophils % (0.1-1.2) % Absolute Granulocytes (1.56-6.13) x10^3/uL Basophils # (0.01-0.08) x10^3/uL D-Dimer 0.71 H* (0.0-0.50) mg/L pO2/FiO2 Ratio % VBG pH (7.32-7.42) VBG pCO2 at Pat Temp (42-55) mm/Hg VBG pO2 at Pat Temp (25-40) mm/Hg VBG HCO3 (22-28) meq/L VBG O2 Sat (Tato) (95-100) VBG Base Excess (-2.0-2.0) VBG Hemoglobin VBG Carboxyhemoglobin (0.0-6.9) % T HGB POC Potassium (3.5-5.1) Sodium 142 (135-145) mmol/L Potassium 4.2 (3.5-5.1) mmol/L Chloride 104 (98-107) mmol/L Carbon Dioxide 30 (22-30) mmol/L Anion Gap 11.9 (5-15) MEQ/L BUN 18 H (7-17) mg/dL Creatinine 0.80 (0.52-1.04) mg/dL Estimated GFR 80.7 ML/MIN Glucose 104 (74-106) mg/dL POC Glucometer (74 to 106) mg/dL Lactic Acid (0.4-2.0) Calcium 9.3 (8.4-10.2) mg/dL Magnesium 2.0 (1.6-2.3) mg/dL Total Bilirubin 0.40 (0.2-1.3) mg/dL AST 29 (14-36) U/L ALT 25 (0-35) U/L Alkaline Phosphatase 113 (38-126) U/L Troponin I < 0.012 (0.000-0.033) ng/mL NT-Pro-B Natriuret Pep 183 (<300) pg/mL Serum Total Protein 6.7 (6.3-8.2) g/dL Albumin 4.1 (3.5-5.0) g/dL Influenza Type A Ag (NEGATIVE) Influenza Type B Ag (NEGATIVE) RSV (PCR) (NEGATIVE) SARS-CoV-2 (PCR) (NEGATIVE) 03/27/25 03/27/25 03/28/25 Range/Units 14:01 15:45 04:44 WBC 8.0 (3.98-10.04) x10^3/uL RBC 4.11 (3.93-5.22) x10^6/uL Hgb 12.7 (11.2-15.7) g/dL Hct 39.7 (34.1-44.9) % MCV 96.6 H (79.4-94.8) fL MCH 30.9 (25.6-32.2) pg MCHC 32.0 L (32.2-35.5) g/dL RDW 14.8 H (11.7-14.4) % Plt Count 208 (182-369) x10^3/uL MPV 10.6 (9.4-12.3) fL Gran % (34.0-71.1) % Immature Gran % (Auto) (0.001-0.429) % Nucleat RBC Rel Count (0.00-0.2) % Eos # (Auto) (0.04-0.36) x10^3/uL Immature Gran # (Auto) (0.001-0.031) x10^3u/L Absolute Lymphs (auto) (1.18-3.74) x10^3/uL Absolute Monos (auto) (0.24-0.86) x10^3/uL Absolute Nucleated RBC (0.00-0.012) x10^3u/L Lymphocytes % (19.3-51.7) % Monocytes % (4.7-12.5) % Eosinophils % (0.7-5.8) % Basophils % (0.1-1.2) % Absolute Granulocytes (1.56-6.13) x10^3/uL Basophils # (0.01-0.08) x10^3/uL D-Dimer (0.0-0.50) mg/L pO2/FiO2 Ratio % VBG pH (7.32-7.42) VBG pCO2 at Pat Temp (42-55) mm/Hg VBG pO2 at Pat Temp (25-40) mm/Hg VBG HCO3 (22-28) meq/L VBG O2 Sat (Tato) (95-100) VBG Base Excess (-2.0-2.0) VBG Hemoglobin VBG Carboxyhemoglobin (0.0-6.9) % T HGB POC Potassium (3.5-5.1) Sodium (135-145) mmol/L Potassium (3.5-5.1) mmol/L Chloride (98-107) mmol/L Carbon Dioxide (22-30) mmol/L Anion Gap (5-15) MEQ/L BUN (7-17) mg/dL Creatinine (0.52-1.04) mg/dL Estimated GFR ML/MIN Glucose (74-106) mg/dL POC Glucometer (74 to 106) mg/dL Lactic Acid (0.4-2.0) Calcium (8.4-10.2) mg/dL Magnesium (1.6-2.3) mg/dL Total Bilirubin (0.2-1.3) mg/dL AST (14-36) U/L ALT (0-35) U/L Alkaline Phosphatase (38-126) U/L Troponin I < 0.012 (0.000-0.033) ng/mL NT-Pro-B Natriuret Pep (<300) pg/mL Serum Total Protein (6.3-8.2) g/dL Albumin (3.5-5.0) g/dL Influenza Type A Ag NEGATIVE (NEGATIVE) Influenza Type B Ag NEGATIVE (NEGATIVE) RSV (PCR) NEGATIVE (NEGATIVE) SARS-CoV-2 (PCR) NEGATIVE (NEGATIVE) 03/28/25 03/28/25 Range/Units 04:44 07:32 WBC (3.98-10.04) x10^3/uL RBC (3.93-5.22) x10^6/uL Hgb (11.2-15.7) g/dL Hct (34.1-44.9) % MCV (79.4-94.8) fL MCH (25.6-32.2) pg MCHC (32.2-35.5) g/dL RDW (11.7-14.4) % Plt Count (182-369) x10^3/uL MPV (9.4-12.3) fL Gran % (34.0-71.1) % Immature Gran % (Auto) (0.001-0.429) % Nucleat RBC Rel Count (0.00-0.2) % Eos # (Auto) (0.04-0.36) x10^3/uL Immature Gran # (Auto) (0.001-0.031) x10^3u/L Absolute Lymphs (auto) (1.18-3.74) x10^3/uL Absolute Monos (auto) (0.24-0.86) x10^3/uL Absolute Nucleated RBC (0.00-0.012) x10^3u/L Lymphocytes % (19.3-51.7) % Monocytes % (4.7-12.5) % Eosinophils % (0.7-5.8) % Basophils % (0.1-1.2) % Absolute Granulocytes (1.56-6.13) x10^3/uL Basophils # (0.01-0.08) x10^3/uL D-Dimer (0.0-0.50) mg/L pO2/FiO2 Ratio % VBG pH (7.32-7.42) VBG pCO2 at Pat Temp (42-55) mm/Hg VBG pO2 at Pat Temp (25-40) mm/Hg VBG HCO3 (22-28) meq/L VBG O2 Sat (Tato) (95-100) VBG Base Excess (-2.0-2.0) VBG Hemoglobin VBG Carboxyhemoglobin (0.0-6.9) % T HGB POC Potassium (3.5-5.1) Sodium 137 (135-145) mmol/L Potassium 3.9 (3.5-5.1) mmol/L Chloride 105 (98-107) mmol/L Carbon Dioxide 25 (22-30) mmol/L Anion Gap 10.1 (5-15) MEQ/L BUN 16 (7-17) mg/dL Creatinine 0.65 (0.52-1.04) mg/dL Estimated GFR 96.4 ML/MIN Glucose 152 H (74-106) mg/dL POC Glucometer 148 H (74 to 106) mg/dL Lactic Acid (0.4-2.0) Calcium 8.9 (8.4-10.2) mg/dL Magnesium (1.6-2.3) mg/dL Total Bilirubin < 0.10 L (0.2-1.3) mg/dL AST 24 (14-36) U/L ALT 22 (0-35) U/L Alkaline Phosphatase 101 (38-126) U/L Troponin I (0.000-0.033) ng/mL NT-Pro-B Natriuret Pep (<300) pg/mL Serum Total Protein 6.4 (6.3-8.2) g/dL Albumin 3.7 (3.5-5.0) g/dL Influenza Type A Ag (NEGATIVE) Influenza Type B Ag (NEGATIVE) RSV (PCR) (NEGATIVE) SARS-CoV-2 (PCR) (NEGATIVE) - Radiology Exams Ordered Rad Exams-Entire Visit: Radiology Procedures Category Date Time Status CHEST 1 VIEW (PORTABLE) Stat Exams 03/27/25 13:56 Completed CHEST WITH CONTRAST [CT] Stat Exams 03/27/25 15:38 Completed - Procedures and Test Procedures and Tests throughout Hospitalization: Therapy Orders & Screens 03/27/25 14:03 Respiratory Therapy Assessment DAILY Comment: 03/27/25 16:47 Respiratory Therapy Consult ONCE Comment: Reason For Exam: 03/27/25 17:23 Oxygen Nasal Cannula 2 lpm Comment: Diagnosis: copd exacerbation Respiratory MDI BID Comment: Diagnosis: copd exacerbation Discharge Exam General Appearance: no apparent distress Neurologic Exam: alert, oriented x 3, cooperative Eye Exam: PERRL Ears, Nose, Throat Exam: normal ENT inspection Neck Exam: normal inspection Respiratory Exam: wheezing Cardiovascular Exam: regular rate/rhythm, normal heart sounds Gastrointestinal/Abdomen Exam: soft, normal bowel sounds Pelvic Exam: deferred Rectal Exam: deferred Back Exam: normal inspection Extremity Exam: normal inspection Skin Exam: normal color Final Diagnosis/Problem List - Final Discharge Diagnosis/Problem (1) COPD exacerbation Current Visit: No Status: Acute Assessment & Plan: CTA chest: emphysematous changes, no PE; stable prosthetic mitral valve and hiatal hernia. Transitioned from IV methylprednisolone to oral prednisone 20mg bid x 5 days Nebulized bronchodilators: Duonebs q4h scheduled, albuterol PRN. Refill sent Inhaled steroid: Pulmicort neb. Empiric antibiotics: ceftriaxone and azithromycin in ED; continue outpatient azithromycin. Maintain O2sats 8892% on nasal cannula; back to baseline 2 L/min at discharge. Encourage pulmonary hygiene and gradual activity. Code(s): J44.1 - CHRONIC OBSTRUCTIVE PULMONARY DISEASE W (ACUTE) EXACERBATION (2) Acute hypoxemic respiratory failure Current Visit: Yes Status: Acute Assessment & Plan: Secondary to COPD exacerbation. Required increase in O2 from 2 L to 3 L; now stable at baseline. Titrate to maintain SpO2 >88%. Monitor for decompensation; ABG if worsening. Code(s): J96.01 - ACUTE RESPIRATORY FAILURE WITH HYPOXIA (3) Hiatal hernia Current Visit: Yes Status: Acute Assessment & Plan: Unchanged from prior imaging. No acute intervention required. Continue reflux precautions and PPI therapy. Code(s): K44.9 - DIAPHRAGMATIC HERNIA WITHOUT OBSTRUCTION OR GANGRENE (4) Depression with anxiety Current Visit: Yes Status: Chronic Assessment & Plan: Continue home antidepressant regimen. Code(s): F41.8 - OTHER SPECIFIED ANXIETY DISORDERS (5) HLD (hyperlipidemia) Current Visit: Yes Status: Acute Assessment & Plan: Continue home lipid-lowering therapy Code(s): E78.5 - HYPERLIPIDEMIA, UNSPECIFIED (6) GERD (gastroesophageal reflux disease) Current Visit: Yes Status: Acute Assessment & Plan: Continue protonix. Code(s): K21.9 - GASTRO-ESOPHAGEAL REFLUX DISEASE WITHOUT ESOPHAGITIS (7) Obesity (BMI 30-39.9) Current Visit: No Status: Chronic Assessment & Plan: Counseled on diet and exercise. Code(s): E66.9 - OBESITY, UNSPECIFIED - Discharge Discharge Date: 03/28/25 Disposition: Home, Self-Care Condition: Stable Prescriptions: New Lactobacillus Acidophilus [Acidophilus TABLET] 1 tab PO DAILY 30 Days #30 tablet Budesonide/Glycopyr/Formoterol [Breztri Aerosphere Inhaler] See Rx Instructions .ROUTE .COMPLEX 30 Days #1 inh Budesonide/Glycopyr/Formoterol [Breztri Aerosphere Inhaler] 1 puff IH TID #0 Prednisone 20 mg [Deltasone 20 mg] 20 mg PO BID 5 Days #10 tablet Azithromycin 250 mg [Zithromax 250 MG TABLET] 250 mg PO DAILY 4 Days #4 tablet Continue Losartan Potassium 50 mg PO DAILY Carvedilol [Coreg ] 6.25 mg PO BID Nitroglycerin 0.4 mg SL Q5MIN PRN MR X 3 PRN PRN Reason: Chest Pain Atorvastatin Calcium 40 mg PO HS PARoxetine HCL [Paroxetine HCl] 40 mg PO DAILY PRN PRN PRN Reason: Anxiety Furosemide [Lasix] 20 mg PO DAILY Montelukast Sodium 10 mg [Singulair 10 MG] 10 mg PO DAILY Guaifenesin 600 mg ER [Mucinex 600MG ER Tabs] 600 mg PO BID #14 tablet Potassium Chloride [Klor-Con M20] 20 meq PO DAILY Fluticasone Propionate 50 mcg INTRANASAL DAILY Aspirin EC 81 mg [Ecotrin 81 mg] 81 mg PO DAILY Albuterol Sulfate [Albuterol Sulfate Hfa] 2 puff IH BID PRN PRN Reason: Shortness Of Breath Ferrous Sulfate 1 ea PO UD Omeprazole 20 mg PO DAILY Albuterol/Ipratropium 3ml Neb* [DUONEB 0.5-3 MG/3 ml Neb] 1 neb IH QID 30 Days #120 amp Discontinued Budesonide/Glycopyr/Formoterol [Breztri Aerosphere Inhaler] 1 puff IH TID Follow up with: SETH FRANKLIN DO [Primary Care Provider, [facility]] - 04/06/25 9:15 am
[2025-03-28] MEDS: Acidophilus TABLET PO SCH (10:24)
[2025-03-28] MEDS: ROCEPHIN 1 GM / 100 ML NaCl 1 GM/100 ML IVPB IV SCH (10:24)
[2025-03-28] MEDS: Coreg PO SCH (10:25)
[2025-03-28] MEDS: Klor Con PO SCH (10:25)
[2025-03-28] MEDS: Cozaar 50 MG PO SCH (10:25)
[2025-03-28] MEDS: LASIX 20 MG PO SCH (10:25)
[2025-03-28] MEDS: FEOSOL 325 MG PO SCH (10:25)
[2025-03-28] MEDS: Protonix 40MG Tablet PO SCH (10:25)
[2025-03-28] MEDS: ECOTRIN 81 MG PO SCH (10:25)
[2025-03-28] MEDS: Mucinex 600MG ER Tabs PO SCH (10:25)
[2025-03-28] MEDS: Singulair 10 MG PO SCH (10:25)
[2025-03-28] MEDS: TYLENOL 325 MG PO PRN (10:31)
[2025-03-28] MEDS: ENOXAPARIN SODIUM SQ SCH (10:38)
[2025-03-28] MEDS: Flonase NASAL NS SCH (11:03)
[2025-03-28] MEDS: DUONEB 0.5-3 MG/3 ml Neb IH SCH (13:09)
[2025-03-28] MEDS: Cyclobenzaprine 10 MG PO PRN (14:03)
[2025-03-28] MEDS ORDERED: NON-FORMULARY ITEM (Budesonide/Glycopyr/Formoterol [Breztri Aerosphere Inhaler] 10.7 GM Hf IH SCH (15:00)
[2025-03-28] MEDS: ZOCOR 20MG PO SCH (22:21)
[2025-03-28] MEDS: DELTASONE 20 MG PO SCH (22:24)
[2025-03-29 05:52] LABS: Hematocrit 38.8 % (34.1-44.9); Hemoglobin 11.9 g/dL (11.2-15.7); Mean Corpuscular Hemoglobin 30.2 pg (25.6-32.2); Mean Corpuscular Hgb Concent. 30.7 g/dL (32.2-35.5); Platelet Count 216 x10^3/uL (182-369); Red Blood Count 3.94 x10^6/uL (3.93-5.22); White Blood Count 11.7 x10^3/uL (3.98-10.04)
[2025-03-29 06:15] LABS: Calcium 8.9 mg/dL (8.4-10.2); Carbon Dioxide 26 mmol/L (22-30); Creatinine 1 0.81 mg/dL (0.52-1.04); EST GLOMERULAR FILTRATION RATE 79.5 ML/MIN; Glucose 141 mg/dL (74-106); Potassium 4.3 mmol/L (3.5-5.1); SGOT/AST 23 U/L (14-36); SGPT/ALT 22 U/L (0-35); Total Protein 6.1 g/dL (6.3-8.2)
[2025-03-29] MEDS: Zithromax 250 MG TABLET PO SCH (09:27)
[2025-03-29] MEDS ORDERED: NON-FORMULARY ITEM (Omeprazole [Omeprazole] 20 MG Capsule.Dr) PO SCH (10:00)
--- NOTE | 2025-03-29 12:07 | PCM.DS ---
Discharge Summary Date of Admission: 03/27/25 17:06 Date of Discharge: 03/29/25 Admitting Physician: SHARLA DILL MD Primary Care Provider: SETH FRANKLIN DO Allergies Allergies ampicillin [Ampicillin] Allergy (Verified 03/27/25 13:29) Penicillins Allergy (Verified 03/27/25 13:29) vitafusion D Allergy (Uncoded 03/27/25 13:29) Hospital Summary - Hospital Course Hospital Course: Ms. Lal is a 69-year-old female with a past medical history significant for myocardial infarction, COPD on home oxygen (2 L), and depression who presented to the emergency department on 03/27/25 with progressive dyspnea and a productive cough with white/yellow sputum. She typically requires 2 L/min of nasal cannula oxygen at baseline but noted increasing her flow to 3 L/min earlier in the day due to worsening symptoms. She reported significant exertional intolerance with minimal activity. She denied chest pain, palpitations, peripheral edema, fevers, chills, or sick contacts. In the ED she experienced one episode of diarrhea, and acidophilus was initiated. She was noted to be hypoxic, tachypneic, and hypertensive. CTA chest showed no pulmonary embolism despite an elevated D-dimer (0.71). Imaging demonstrated emphysematous changes consistent with COPD, a stable mitral valve prosthesis, intact sternotomy wires, and a moderate hiatal hernia unchanged from prior studies. She was treated in the ED with ceftriaxone, azithromycin, IV methylprednisolone, and Ativan. She was admitted for management of COPD exacerbation with acute hypoxemic respiratory failure. During hospitalization, she received scheduled nebulized bronchodilators, inhaled corticosteroids, and supplemental oxygen titrated to maintain saturations 8892%. Her oxygen requirements have now returned to baseline. At discharge, she will complete a course of azithromycin, continue a prednisone taper, and resume her inhaled triple therapy with Breztri and duonebs. Breathing is stable on home oxygen. She was counseled on pulmonary hygiene, early ambulation, and continuation of her chronic medications. Discharge Note New Diagnosis: COPD exacerbation New Medications: Prednisone/azithromycin -refill INH Follow Up: PCP/pulm I spent 35 minutes [id number] with the patient on the day of discharge performing discharge exam, discussing hospital stay and discharge instructions with patient and caregivers, preparation of discharge records, prescriptions & referral forms and addressing any questions/concerns the patient had as documented above. - Vitals & Intake/Output Vital Signs: Vital Signs Temperature 97.6 F 03/29/25 11:09 Pulse Rate 83 03/29/25 12:00 Respiratory Rate 16 03/29/25 12:00 Blood Pressure 125/64 03/29/25 11:09 O2 Sat by Pulse Oximetry 97 03/29/25 12:00 Intake & Output: Intake & Output 03/27/25 03/28/25 03/29/25 03/30/25 11:59 11:59 11:59 11:59 Intake Total 680 1907 Balance 680 1907 Weight 83 kg - Lab Result Diagrams: 03/29/25 04:22 03/29/25 04:22 Lab Results-Last 24 Hrs: Lab Results-Last 24 Hours 03/29/25 03/29/25 Range/Units 04:22 04:22 WBC 11.7 H (3.98-10.04) x10^3/uL RBC 3.94 (3.93-5.22) x10^6/uL Hgb 11.9 (11.2-15.7) g/dL Hct 38.8 (34.1-44.9) % MCV 98.5 H (79.4-94.8) fL MCH 30.2 (25.6-32.2) pg MCHC 30.7 L (32.2-35.5) g/dL RDW 15.2 H (11.7-14.4) % Plt Count 216 (182-369) x10^3/uL MPV 11.0 (9.4-12.3) fL Sodium 140 (135-145) mmol/L Potassium 4.3 (3.5-5.1) mmol/L Chloride 107 (98-107) mmol/L Carbon Dioxide 26 (22-30) mmol/L Anion Gap 11.1 (5-15) MEQ/L BUN 22 H (7-17) mg/dL Creatinine 0.81 (0.52-1.04) mg/dL Estimated GFR 79.5 ML/MIN Glucose 141 H (74-106) mg/dL Calcium 8.9 (8.4-10.2) mg/dL Total Bilirubin < 0.10 L (0.2-1.3) mg/dL AST 23 (14-36) U/L ALT 22 (0-35) U/L Alkaline Phosphatase 84 (38-126) U/L Serum Total Protein 6.1 L (6.3-8.2) g/dL Albumin 3.5 (3.5-5.0) g/dL Micro Results-Entire Visit: Microbiology 03/27/25 14:00 Blood Culture - Preliminary Blood 03/27/25 13:57 Blood Culture - Preliminary Blood - Radiology Exams Ordered Rad Exams-Entire Visit: Radiology Procedures Category Date Time Status CHEST 1 VIEW (PORTABLE) Stat Exams 03/27/25 13:56 Completed CHEST WITH CONTRAST [CT] Stat Exams 03/27/25 15:38 Completed - Procedures and Test Procedures and Tests throughout Hospitalization: Therapy Orders & Screens 03/27/25 14:03 Respiratory Therapy Assessment DAILY Comment: 03/27/25 16:47 Respiratory Therapy Consult ONCE Comment: Reason For Exam: 03/27/25 17:23 Oxygen Nasal Cannula 2 lpm Comment: Diagnosis: copd exacerbation Respiratory MDI BID Comment: Diagnosis: copd exacerbation Discharge Exam General Appearance: no apparent distress Neurologic Exam: alert, oriented x 3, cooperative Eye Exam: PERRL Ears, Nose, Throat Exam: normal ENT inspection Neck Exam: normal inspection Respiratory Exam: wheezing Cardiovascular Exam: regular rate/rhythm, normal heart sounds Gastrointestinal/Abdomen Exam: soft, normal bowel sounds Pelvic Exam: deferred Rectal Exam: deferred Back Exam: normal inspection Extremity Exam: normal inspection Skin Exam: normal color Final Diagnosis/Problem List - Final Discharge Diagnosis/Problem (1) COPD exacerbation Current Visit: No Status: Acute Assessment & Plan: CTA chest: emphysematous changes, no PE; stable prosthetic mitral valve and hiatal hernia. Transitioned from IV methylprednisolone to oral prednisone 20mg bid x 5 days Nebulized bronchodilators: Duonebs q4h scheduled, albuterol PRN. Refill sent Inhaled steroid: Pulmicort neb. Empiric antibiotics: ceftriaxone and azithromycin in ED; continue outpatient azithromycin. Maintain O2sats 8892% on nasal cannula; back to baseline 2 L/min at discharge. Encourage pulmonary hygiene and gradual activity. Code(s): J44.1 - CHRONIC OBSTRUCTIVE PULMONARY DISEASE W (ACUTE) EXACERBATION (2) Acute hypoxemic respiratory failure Current Visit: Yes Status: Acute Assessment & Plan: Secondary to COPD exacerbation. Required increase in O2 from 2 L to 3 L; now stable at baseline. Titrate to maintain SpO2 >88%. Monitor for decompensation; ABG if worsening. Code(s): J96.01 - ACUTE RESPIRATORY FAILURE WITH HYPOXIA (3) Hiatal hernia Current Visit: Yes Status: Acute Assessment & Plan: Unchanged from prior imaging. No acute intervention required. Continue reflux precautions and PPI therapy. Code(s): K44.9 - DIAPHRAGMATIC HERNIA WITHOUT OBSTRUCTION OR GANGRENE (4) Depression with anxiety Current Visit: Yes Status: Chronic Assessment & Plan: Continue home antidepressant regimen. Code(s): F41.8 - OTHER SPECIFIED ANXIETY DISORDERS (5) HLD (hyperlipidemia) Current Visit: Yes Status: Acute Assessment & Plan: Continue home lipid-lowering therapy Code(s): E78.5 - HYPERLIPIDEMIA, UNSPECIFIED (6) GERD (gastroesophageal reflux disease) Current Visit: Yes Status: Acute Assessment & Plan: Continue protonix. Code(s): K21.9 - GASTRO-ESOPHAGEAL REFLUX DISEASE WITHOUT ESOPHAGITIS (7) Obesity (BMI 30-39.9) Current Visit: No Status: Chronic Assessment & Plan: Counseled on diet and exercise. Code(s): E66.9 - OBESITY, UNSPECIFIED Code(s): J44.1 - CHRONIC OBSTRUCTIVE PULMONARY DISEASE W (ACUTE) EXACERBATION (2) Acute hypoxemic respiratory failure Current Visit: Yes Status: Acute Code(s): J96.01 - ACUTE RESPIRATORY FAILURE WITH HYPOXIA (3) Hiatal hernia Current Visit: Yes Status: Acute Code(s): K44.9 - DIAPHRAGMATIC HERNIA WITHOUT OBSTRUCTION OR GANGRENE (4) Depression with anxiety Current Visit: Yes Status: Chronic Code(s): F41.8 - OTHER SPECIFIED ANXIETY DISORDERS (5) HLD (hyperlipidemia) Current Visit: Yes Status: Acute Code(s): E78.5 - HYPERLIPIDEMIA, UNSPECIFIED (6) GERD (gastroesophageal reflux disease) Current Visit: Yes Status: Acute Code(s): K21.9 - GASTRO-ESOPHAGEAL REFLUX DISEASE WITHOUT ESOPHAGITIS (7) Obesity (BMI 30-39.9) Current Visit: No Status: Chronic Code(s): E66.9 - OBESITY, UNSPECIFIED - Discharge Discharge Date: 03/29/25 Disposition: Home, Self-Care Condition: Stable Prescriptions: New Lactobacillus Acidophilus [Acidophilus TABLET] 1 tab PO DAILY 30 Days #30 tablet Budesonide/Glycopyr/Formoterol [Breztri Aerosphere Inhaler] See Rx Instructions .ROUTE .COMPLEX 30 Days #1 inh Budesonide/Glycopyr/Formoterol [Breztri Aerosphere Inhaler] 1 puff IH TID #0 Prednisone 20 mg [Deltasone 20 mg] 20 mg PO BID 5 Days #10 tablet Azithromycin 250 mg [Zithromax 250 MG TABLET] 250 mg PO DAILY 4 Days #4 tablet Continue Losartan Potassium 50 mg PO DAILY Carvedilol [Coreg ] 6.25 mg PO BID Nitroglycerin 0.4 mg SL Q5MIN PRN MR X 3 PRN PRN Reason: Chest Pain Atorvastatin Calcium 40 mg PO HS PARoxetine HCL [Paroxetine HCl] 40 mg PO DAILY PRN PRN PRN Reason: Anxiety Furosemide [Lasix] 20 mg PO DAILY Montelukast Sodium 10 mg [Singulair 10 MG] 10 mg PO DAILY Guaifenesin 600 mg ER [Mucinex 600MG ER Tabs] 600 mg PO BID #14 tablet Potassium Chloride [Klor-Con M20] 20 meq PO DAILY Fluticasone Propionate 50 mcg INTRANASAL DAILY Aspirin EC 81 mg [Ecotrin 81 mg] 81 mg PO DAILY Albuterol Sulfate [Albuterol Sulfate Hfa] 2 puff IH BID PRN PRN Reason: Shortness Of Breath Ferrous Sulfate 1 ea PO UD Omeprazole 20 mg PO DAILY Albuterol/Ipratropium 3ml Neb* [DUONEB 0.5-3 MG/3 ml Neb] 1 neb IH QID 30 Days #120 amp Discontinued Budesonide/Glycopyr/Formoterol [Breztri Aerosphere Inhaler] 1 puff IH TID Instructions: COPD exacerbation - Discharge instructions Follow up with: SETH FRANKLIN DO [Primary Care Provider, [facility]] - 04/06/25 9:15 am
[2025-03-29 15:51] VITALS: BP 125/76; PULSE 98; RESP 16; TEMP 97.8; O2SAT 93
== END 2025-03-29 17:54 | disposition home or self-care (01) ==
LOC: ED 13:27 → MED SURG 17:06
PROVIDERS: ADMIT Internal Medicine; ATTEND Internal Medicine
DX: J44.1 Chronic obstructive pulmonary disease with (acute) exacerbation (principal); J96.01 Acute respiratory failure with hypoxia; Z59.19 Other inadequate housing; K44.9 Diaphragmatic hernia without obstruction or gangrene; I25.2 Old myocardial infarction; F41.8 Other specified anxiety disorders; D50.9 Iron deficiency anemia, unspecified; E78.5 Hyperlipidemia, unspecified; K21.9 Gastro-esophageal reflux disease without esophagitis; E66.9 Obesity, unspecified; Z99.81 Dependence on supplemental oxygen; Z79.899 Other long term (current) drug therapy
CPT/HCPCS: 36415; 71045; 71260; 80053; 82805; 82947; 83605; 83735; 83880; 84484; 85025; 85027; 85379; 87040; 87637; 93005; 93041; 93268; 94640; 94760; 94762; 96365; 96372; 96374; 99285; G0378